=== PATIENT | female | born 1960 | race Caucasian/White ===

== ENCOUNTER → 2016-06-29 | Outpatient (REF) | payer OTHER ==
[2016-06-29 18:11] LABS: BASO % 0.7 % (0.0-1.0); EOS # 0.2 K/mm3 (0.0-0.50); EOS % 1.8 % (0.0-3.0); LARGE UNSTAINED CELL # 0.2 K/mm3 (0.0-0.4); LYMPH # 2.2 K/mm3 (1.5-4.5); LYMPH % 27.4 % (24.0-44.0); MEAN CORPUSCULAR HGB CONC 35.6 g/dl (32.0-36.5); MEAN CORPUSCULAR VOLUME 81.5 fl (80.0-96.0); MONO # 0.5 K/mm3 (0.0-0.8); MONO % 6.2 % (0.0-5.0); NEUTROPHILS % 61.9 % (36.0-66.0); PLATELET COUNT, AUTOMATED 245 k/mm3 (150-450); RED CELL DISTRIBUTION WIDTH 13.4 % (11.5-14.5); WHITE BLOOD COUNT 8.1 K/mm3 (4.0-10.0)
[2016-06-29 18:51] LABS: ALBUMIN 3.9 GM/DL (3.2-5.2); ALBUMIN/GLOBULIN RATIO 1.18 (1.00-1.93); ALKALINE PHOSPHATASE 128 U/L (45-117); ALT/SGPT 20 U/L (12-78); ANION GAP 14 MEQ/L (8-16); AST/SGOT 16 U/L (15-37); BILIRUBIN,TOTAL 0.6 MG/DL (0.2-1.0); BLOOD UREA NITROGEN 17 MG/DL (7-18); CALCIUM LEVEL 9.7 MG/DL (8.5-10.1); CARBON DIOXIDE LEVEL 22 MEQ/L (21-32); CHLORIDE LEVEL 100 MEQ/L (98-107); CREATININE FOR GFR 0.82 MG/DL (0.55-1.02); FREE T4 1.18 NG/DL (0.76-1.46); GLOMERULAR FILTRATION RATE > 60.0 (>51); GLUCOSE, FASTING 325 MG/DL (70-105); POTASSIUM SERUM 4.4 MEQ/L (3.5-5.1); SODIUM LEVEL 136 MEQ/L (136-145); TOTAL PROTEIN 7.2 GM/DL (6.4-8.2)
== END ==
LOC: M SFHCPLAZ 15:14
PROVIDERS: ATTEND Nurse Practitioner Family
DX: R53.81 Other malaise (principal); I10 Essential (primary) hypertension; E11.29 Type 2 diabetes mellitus with other diabetic kidney complication; E55.9 Vitamin D deficiency, unspecified

== ENCOUNTER → 2016-07-09 | Outpatient (CLI) | payer OTHER ==
[2016-07-09 09:35] LABS: ANION GAP 13 MEQ/L (8-16); BLOOD UREA NITROGEN 14 MG/DL (7-18); CALCIUM LEVEL 8.9 MG/DL (8.5-10.1); CARBON DIOXIDE LEVEL 22 MEQ/L (21-32); CHLORIDE LEVEL 108 MEQ/L (98-107); CHOLESTEROL LEVEL 274 MG/DL (<200); CREATININE FOR GFR 0.61 MG/DL (0.55-1.02); GLOMERULAR FILTRATION RATE > 60.0 (>51); GLUCOSE, FASTING 142 MG/DL (70-105); MAGNESIUM LEVEL 1.2 MG/DL (1.8-2.4); POTASSIUM SERUM 4.2 MEQ/L (3.5-5.1); SODIUM LEVEL 143 MEQ/L (136-145); TRIGLYCERIDES LEVEL 300 MG/DL (<150)
== END ==
LOC: M WUC 08:03
PROVIDERS: ATTEND Nurse Practitioner Family
DX: I10 Essential (primary) hypertension (principal); E78.5 Hyperlipidemia, unspecified

== ENCOUNTER 2016-07-20 06:09 | Emergency (ER) | payer OTHER ==
[2016-07-20] MEDS ORDERED: IPRATROPIUM 0.5MG/ALBUTEROL 2.5MG INH SOL UD 3ML (DUONEB)(J7620) As Ordered ONE (07:02)
[2016-07-20 07:19] LABS: BASO % 0.3 % (0.0-1.0); EOS # 0.2 K/mm3 (0.0-0.50); EOS % 1.8 % (0.0-3.0); LARGE UNSTAINED CELL # 0.2 K/mm3 (0.0-0.4); LARGE UNSTAINED CELL % 1.5 % (0.0-4.0); LYMPH # 1.4 K/mm3 (1.5-4.5); LYMPH % 12.8 % (24.0-44.0); MEAN CORPUSCULAR HEMOGLOBIN 28.3 pg (27.0-33.0); MEAN CORPUSCULAR HGB CONC 35.4 g/dl (32.0-36.5); MEAN CORPUSCULAR VOLUME 79.8 fl (80.0-96.0); MONO # 0.8 K/mm3 (0.0-0.8); MONO % 8.3 % (0.0-5.0); NEUTROPHILS # 7.6 K/mm3 (1.8-7.7); NEUTROPHILS % 75.3 % (36.0-66.0); PLATELET COUNT, AUTOMATED 314 k/mm3 (150-450); RED CELL DISTRIBUTION WIDTH 13.5 % (11.5-14.5); WHITE BLOOD COUNT 10.1 K/mm3 (4.0-10.0)
[2016-07-20 07:32] LABS: ANION GAP 8 MEQ/L (8-16); BLOOD UREA NITROGEN 13 MG/DL (7-18); CALCIUM LEVEL 8.2 MG/DL (8.5-10.1); CARBON DIOXIDE LEVEL 27 MEQ/L (21-32); CHLORIDE LEVEL 102 MEQ/L (98-107); CREATININE FOR GFR 0.58 MG/DL (0.55-1.02); GLOMERULAR FILTRATION RATE > 60.0 (>51); GLUCOSE, FASTING 286 MG/DL (70-105); POTASSIUM SERUM 4.2 MEQ/L (3.5-5.1); SODIUM LEVEL 137 MEQ/L (136-145)
--- NOTE | 2016-07-20 08:05 | REP ---
Clinical: Acute cough . Comparison: 06/10/2011 . Technique: PA and lateral. Findings: The mediastinum and cardiac silhouette are normal. The lung nicholson are clear and without acute consolidation, effusion, or pneumothorax. The skeletal structures are intact and normal. Impression: 1. No acute cardiopulmonary process. Signed by Garrick Stevenson MD 07/20/2016 07:57 A
--- NOTE | 2016-07-20 10:04 | EDDOCDS ---
Physician Documentation [facility] Name: Josh Ramachandran Age: 56 yrs Sex: Female : 1960 Arrival Date: 07/20/2016 Time: 06:09 Bed 7 Private MD: Disposition: 07/20/16 09:41 Discharged to Home/Self Care. Impression: Acute upper respiratory infection, unspecified. - Condition is Stable. - Discharge Instructions: Food Choices to Help Relieve Diarrhea, Adult, Upper Respiratory Infection, Adult, Viral Infections, Diarrhea. - Prescriptions for Afrin (oxymetazoline) 0.05 % Nasal Aerosol, [place] - spray 2 spray by INTRANASAL route 2 times per day; 1 Container. benzonatate 200 mg Oral Capsule - take 1 capsule by ORAL route 3 times per day As needed; 30 capsule. Fluticasone 50 mcg/actuation Nasal [place], Suspension - inhale 2 spray by INTRANASAL route once daily; 1 bottle. Albuterol Sulfate 90 mcg/actuation Inhalation HFA Aerosol Inhaler - inhale 2 puff by INHALATION route every 4 hours As needed; 1 Inhaler. - Medication Reconciliation, Local Pharmacy Hours, Work Release Form - 3 day form. - Follow up: Private Physician; When: 1 - 2 days. - Problem is new. - Symptoms have improved. Historical: - Allergies: Augmentin (Vomit); nyacin (Rash); - Home Meds: 1. Insulin: Lantus Sub-Q 1 sliding scale 2. Metformin Unknown Oral 2 times per day 3. Lisinopril Oral once daily 4. bisoprolol fumarate oral oral once daily 5. Lipitor Oral once daily 6. Zoloft Oral Unknown once daily 7. aspirin 81 mg Oral tab 1 tab once daily 8. Vitamin D Oral daily 9. Magnesium Oxide Oral Unknown daily 10. Flonase Nasal Unknown daily 11. Zyrtec 10 mg Oral cap Unknown daily - PMHx: Hypertension; Diabetes - IDDM: controlled; High Cholesterol; Depression; Seasonal Allergies; - PSHx: Hysterectomy; Tonsillectomy; D & C; ; - Social history: Smoking status: Patient states was never smoker of tobacco. No barriers to communication noted, The patient speaks fluent Bahamian, Speaks appropriately for age, Preferred Language: Bahamian. - Family history: Not pertinent. - : The pt / caregiver states he / she is not on anticoagulants. Home medication list is obtained from the patient. - Exposure Risk Screening:: None identified. Vital Signs: 07/20 06:15 BP 148 / 96; Pulse 83; Resp 20; Temp 98.2(TE); Pulse Ox 97% on R/A; Weight 77.11 kg / lf1 170 lbs (R); Height 5 ft. 4 in. (162.56 cm) (R); Pain 0/10; 09:07 BP 171 / 80 (auto/); Pulse 81; Resp 20; Temp 98.7(T); Pulse Ox 97% on R/A; Pain 2/10; dsf 06:15 Body Mass Index 29.18 (77.11 kg, 162.56 cm) lf1 MDM: 06:31 Strep Screen, Nursing ordered. lf1 06:32 GATS (NEGATIVE STREP SCREEN) Ordered. EDMS 06:37 -Influenza A&B Rapid Antigen - Nose Ordered. EDMS 06:52 Albuterol-Ipratropium 3 ml Inhalation once ordered. cs11 06:52 Call Respiratory ordered. cs11 06:52 NS 0.9% 1000 ml IV at bolus once ordered. cs11 06:52 Chest, 2 View (pa\E\lat) Ordered. EDMS 06:53 CBC with Diff Ordered. EDMS 06:53 MED Profile Ordered. EDMS 07:09 Call Respiratory complete. lbd 07:37 CBC with Diff Reviewed. sd1 07:37 MED Profile Reviewed. sd1 07:37 -Influenza A&B Rapid Antigen - Nose Reviewed. sd1 07:37 Fluid Challenge ordered. sd1 07:40 CLEAR LIQUID+DIET ordered. EDMS 08:32 Misc. Nursing Order ordered. sd1 08:49 Chest, 2 View (pa\E\lat) Reviewed. sd1 09:18 [facility] Payment Agreement was scanned into [employer] and attached to record. jp5 09:18 Financial registration complete. jp5 Administered Medications: 07:12 Drug: Albuterol-Ipratropium 3 ml [ipratropium-albuterol 0.5 mg-3 mg(2.5 mg base)/3 mL km6 nebulization soln (3 mL)] Route: Inhalation; 07:12 Drug: NS 0.9% 1000 ml [sodium chloride 0.9 % intravenous solution] Route: IV; Rate: ck1 bolus; Site: right forearm; 10:04 Follow up: IV Status: Completed infusion; IV Intake: 1000ml dsf Signatures: Dispatcher [employer] Akila Cruz MD MD sd1 Emerita Sanchez, Audio/Visual Operator Unit [facility] Sasha PollardRN RN ck1 Elidia GuerreroRN RN lf1 Natasha Lehman RN RN dsf Satya Storey DO DO 11 Maye Munroe RN RN nn1 Natalie Moreno jp5 Salud Junior 6 The chart was reviewed and I authenticate all verbal orders and agree with the evaluation and treatment provided.Corrections: (The following items were deleted from the chart) 06:36 06:35 Obtain sample by nasopharyngeal swab ordered. nn1 nn1 Attachments: 09:18 [facility] Payment Agreement jp5 NORBERT
--- NOTE | 2016-07-20 10:05 | EDDOCDS ---
Nurse's Notes [facility] Name: Josh Ramachandran Age: 56 yrs Sex: Female : 1960 Arrival Date: 07/20/2016 Time: 06:09 Bed 7 Private MD: Diagnosis: Acute upper respiratory infection, unspecified Presentation: 07/20 06:15 Presenting complaint: Patient states: Feeling sick since Tuesday. Nausea, diarrhea, lf1 weakness, body aches, coughing and ear pain. No flu shot this year. Decreased appetite and sore throat. Adult Sepsis Screening: The patient does not have new or worsening altered mentation. Patient's respiratory rate is less than 22. Systolic blood pressure is greater than 100. Patient has a qSOFA score of 0- Negative Sepsis Screen. Suicide/Homicide risk assessment- the patient denies having any suicidal and/or homicidal ideations and does not present with any other emotional, behavioral or mental health complaints. Status: Patient is not a field services analyst or dependent. Transition of care: patient was not received from another setting of care. 06:15 Acuity: APOLLO Level 4 lf1 06:15 Method Of Arrival: Walkin/Carried/Asstd lf1 07:30 Acuity level changed due to complexity of care. ck1 07:30 Acuity: APOLLO Level 3 ck1 Triage Assessment: 06:28 General: Appears ill, Behavior is cooperative. Pain: Denies pain. HIV screening NA for lf1 this visit Offered previously. Neurological: Level of Consciousness is awake, alert. EENT: Reports nasal congestion. Respiratory: Respiratory effort is even, unlabored, Respiratory pattern is regular, Reports shortness of breath cough that is persistent. GI: Reports nausea. Derm: Skin is intact, Pt reports recently treated for Shingles and still has a small rash to right abdomen. Historical: - Allergies: Augmentin (Vomit); nyacin (Rash); - Home Meds: 1. Insulin: Lantus Sub-Q 1 sliding scale 2. Metformin Unknown Oral 2 times per day 3. Lisinopril Oral once daily 4. bisoprolol fumarate oral oral once daily 5. Lipitor Oral once daily 6. Zoloft Oral Unknown once daily 7. aspirin 81 mg Oral tab 1 tab once daily 8. Vitamin D Oral daily 9. Magnesium Oxide Oral Unknown daily 10. Flonase Nasal Unknown daily 11. Zyrtec 10 mg Oral cap Unknown daily - PMHx: Hypertension; Diabetes - IDDM: controlled; High Cholesterol; Depression; Seasonal Allergies; - PSHx: Hysterectomy; Tonsillectomy; D & C; ; - Social history: Smoking status: Patient states was never smoker of tobacco. No barriers to communication noted, The patient speaks fluent [place], Speaks appropriately for age, Preferred Language: [place]. - Family history: Not pertinent. - : The pt / caregiver states he / she is not on anticoagulants. Home medication list is obtained from the patient. - Exposure Risk Screening:: None identified. Screenin:15 Screening information is obtained from the patient. Fall risk: No risks identified. ck1 Assistance ADL's: requires no assistance with activities of daily living. Abuse/DV Screen: The patient / caregiver reports he/she is: not in a situation that causes fear, pain or injury. Nutritional screening: No deficits noted. Advance Directives: Currently, there is no health care proxy. home support is adequate. Assessment: 06:48 General: Appears in no apparent distress, Behavior is appropriate for age, cooperative. nn1 General: Patient reports possible shingles to right abdomen, reports pain to the area. States she is currently on medication for this by PCP.. Pain: Location: right upper quadrant and right lower quadrant. Neurological: Level of Consciousness is awake, alert, obeys commands. Respiratory: Airway is patent Respiratory effort is even, unlabored, Respiratory pattern is regular, Breath sounds with wheezes expiratory Reports cough that is productive, since TUESDAY producing thick white mucus. GI: Abdomen is non- distended Bowel sounds present X 4 quads. Abd is soft X 4 quads Abd is tender to palpation in right upper quadrant and right lower quadrant Reports diarrhea, nausea, Decreased appetite. Derm: Skin is pink, warm & dry. Rash to right abdomen. 07:15 General: Appears in no apparent distress, comfortable, Behavior is appropriate for age, ck1 cooperative. Pain: Location: right lower quadrant Pain currently is 2 out of 10 on a pain scale. Pain radiates to right flank. GI: Reports nausea. Derm: Skin is pink, warm & dry. Musculoskeletal: Circulation, motion, and sensation intact Range of motion intact in all extremities. 08:15 Reassessment: Patient appears in no apparent distress at this time. ck1 08:51 General: Patient ambulated in hallway approximately 50 feet. denies feeling dizzy, ck1 denies SOB. C/O feeling weak. No acute distress noted, assisted back to room, positioned self for comfort. Call light in reach, will continue to monitor patient. 09:11 General: Appears in no apparent distress, Behavior is appropriate for age. Pain: dsf Location: right flank and right lower quadrant and right upper quadrant Pain currently is 2 out of 10 on a pain scale. Quality of pain is described as burning. Neurological: Level of Consciousness is awake, alert. Cardiovascular: Capillary refill < 3 seconds. Respiratory: Airway is patent Respiratory effort is even, unlabored, Respiratory pattern is regular, symmetrical. Derm: Skin is pink, warm & dry. 09:54 General: Appears in no apparent distress, comfortable, Behavior is appropriate for age, dsf cooperative. Neurological: Level of Consciousness is awake, alert. Cardiovascular: Capillary refill < 3 seconds. Respiratory: Airway is patent Respiratory effort is even, unlabored, Respiratory pattern is regular, symmetrical. Derm: Skin is pink, warm & dry. Vital Signs: 06:15 BP 148 / 96; Pulse 83; Resp 20; Temp 98.2(TE); Pulse Ox 97% on R/A; Weight 77.11 kg lf1 (R); Height 5 ft. 4 in. (162.56 cm) (R); Pain 0/10; 09:07 BP 171 / 80 (auto/); Pulse 81; Resp 20; Temp 98.7(T); Pulse Ox 97% on R/A; Pain 2/10; dsf 06:15 Body Mass Index 29.18 (77.11 kg, 162.56 cm) [facility] Vitals: 06:15 Log In Time: July 20, 2016 at 06:11. lf1 06:31 Strep Screen is obtained and tested: Negative, a GATSNEG [facility] and sent. ED Course: 06:10 Patient visited by Thalia Bradshaw Reg. hs2 06:10 Patient moved to Waiting hs2 06:22 Triage Initiated lf1 06:31 Patient moved to 7 lf1 06:45 Satya Storey DO is Attending Physician. cs11 06:45 Patient visited by Satya Storey DO. cs11 06:56 Attending Physician role handed off by Satya Storey DO sd1 06:56 Akila Newell MD is Attending Physician. sd1 07:11 Patient visited by Sasha Pollard RN. ck1 07:12 MED Profile Sent. ck1 07:12 CBC with Diff Sent. ck1 07:15 Sasha Pollard RN is Primary Nurse. ck1 07:15 The patient / caregiver is instructed regarding the plan of care and ED course. ck1 07:15 Inserted saline lock: 20 gauge in right forearm and blood collected. The patient ck1 tolerated the procedure well. 07:43 Patient visited by Sasha Pollard RN. ck1 07:57 Patient visited by Sasha Pollard RN. ck1 07:57 PO fluids given. ck1 08:16 Chest, 2 View (pa\E\lat) Returned. EDMS 08:35 Patient visited by Sasha Pollard RN. ck1 08:51 Sasha Pollard RN is Primary Nurse. ck1 08:51 Patient visited by Sasha Pollard RN. ck1 09:12 Patient visited by Natasha Lehman,ALE. dsf 09:18 [facility] Payment Agreement was scanned into [employer] and attached to record. jp5 09:54 Discontinued lock intact, bleeding controlled, pressure dressing applied, No dsf redness/swelling at site. No procedures done that require assistance. Administered Medications: 07:12 Drug: Albuterol-Ipratropium 3 ml [ipratropium-albuterol 0.5 mg-3 mg(2.5 mg base)/3 mL km nebulization soln (3 mL)] Route: Inhalation; 07:12 Drug: NS 0.9% 1000 ml [sodium chloride 0.9 % intravenous solution] Route: IV; Rate: ck1 bolus; Site: right forearm; 10:04 Follow up: IV Status: Completed infusion; IV Intake: 1000ml dsf Intake: 10:04 IV: 1000.00ml; Total: 1000.00ml. dsf RT: 07:13 Initial Med Neb Given as ordered Patient was instructed and evaluated on procedure km6 Patient tolerated procedure well without adverse effect. Respiratory: Breath sounds with wheezes at expiration. Order Results: Lab Order: -Influenza A&B Rapid Antigen - Nose; SPEC'M 07/20/16 06:38 Test: INFLUENZA A RAPID SCR by ICA; Value: INFLUENZA A RESULTS NEGATIVE; Status: F Test: INFLUENZA A RAPID SCR by ICA; Value: Comments:; Status: F Test: INFLUENZA B RAPID SCR by ICA; Value: INFLUENZA B RESULTS NEGATIVE; Status: F Test Note: ; The Influenza test is a direct rapid immunoassay for the qualitative detection of Influenza viral antigen. Cell culture (Viral Culture) testing should be considered to confirm NEGATIVE results and to assist in detecting other viruses that can provide similar clinical symptoms. Please contact the lab within 24 hours ([phone]) if confirmatory testing is desired. Lab Order: CBC with Diff; SPEC'M 07/20/16 07:10 Test: WHITE BLOOD COUNT; Value: 10.1; Range: 4.0-10.0; Abnormal: Above high normal; Units: K/mm3; Status: F Test: RED BLOOD COUNT; Value: 4.65; Range: 4.00-5.40; Units: M/mm3; Status: F Test: HEMOGLOBIN; Value: 13.1; Range: 12.0-16.0; Units: g/dl; Status: F Test: HEMATOCRIT; Value: 37.1; Range: 36.0-47.0; Units: %; Status: F Test: MEAN CORPUSCULAR VOLUME; Value: 79.8; Range: 80.0-96.0; Abnormal: Below low normal; Units: fl; Status: F Test: MEAN CORPUSCULAR HEMOGLOBIN; Value: 28.3; Range: 27.0-33.0; Units: pg; Status: F Test: MEAN CORPUSCULAR HGB CONC; Value: 35.4; Range: 32.0-36.5; Units: g/dl; Status: F Test: RED CELL DISTRIBUTION WIDTH; Value: 13.5; Range: 11.5-14.5; Units: %; Status: F Test: PLATELET COUNT, AUTOMATED; Value: 314; Range: 150-450; Units: k/mm3; Status: F Test: NEUTROPHILS %; Value: 75.3; Range: 36.0-66.0; Abnormal: Above high normal; Units: %; Status: F Test: LYMPH %; Value: 12.8; Range: 24.0-44.0; Abnormal: Below low normal; Units: %; Status: F Test: MONO %; Value: 8.3; Range: 0.0-5.0; Abnormal: Above high normal; Units: %; Status: F Test: EOS %; Value: 1.8; Range: 0.0-3.0; Units: %; Status: F Test: BASO %; Value: 0.3; Range: 0.0-1.0; Units: %; Status: F Test: LARGE UNSTAINED CELL %; Value: 1.5; Range: 0.0-4.0; Units: %; Status: F Test: NEUTROPHILS #; Value: 7.6; Range: 1.8-7.7; Units: K/mm3; Status: F Test: LYMPH #; Value: 1.4; Range: 1.5-4.5; Abnormal: Below low normal; Units: K/mm3; Status: F Test: MONO #; Value: 0.8; Range: 0.0-0.8; Units: K/mm3; Status: F Test: EOS #; Value: 0.2; Range: 0.0-0.50; Units: K/mm3; Status: F Test: BASO #; Value: 0.0; Range: 0.0-0.2; Units: K/mm3; Status: F Test: LARGE UNSTAINED CELL #; Value: 0.2; Range: 0.0-0.4; Units: K/mm3; Status: F Lab Order: [facility] Profile; [facility]' 07/20/16 07:10 Test: GLUCOSE, FASTING; Value: 286; Range: 70-105; Abnormal: Above high normal; Units: MG/DL; Status: F Test: BLOOD UREA NITROGEN; Value: 13; Range: 7-18; Units: MG/DL; Status: F Test: CREATININE FOR GFR; Value: 0.58; Range: 0.55-1.02; Units: MG/DL; Status: F Test: GLOMERULAR FILTRATION RATE; Value: > 60.0; Range: >51; Status: F Test: SODIUM LEVEL; Value: 137; Range: 136-145; Units: MEQ/L; Status: F Test: POTASSIUM SERUM; Value: 4.2; Range: 3.5-5.1; Units: MEQ/L; Status: F Test: CHLORIDE LEVEL; Value: 102; Range: 98-107; Units: MEQ/L; Status: F Test: CARBON DIOXIDE LEVEL; Value: 27; Range: 21-32; Units: MEQ/L; Status: F Test: ANION GAP; Value: 8; Range: 8-16; Units: MEQ/L; Status: F Test: CALCIUM LEVEL; Value: 8.2; Range: 8.5-10.1; Abnormal: Below low normal; Units: MG/DL; Status: F Test Note: ; Units are mL/min/1.73 m2 Chronic Kidney Disease Staging per NKF: Stage I & II GFR >=60 Normal to Mildly Decreased Stage III GFR 30-59 Moderately Decreased Stage IV GFR 15-29 Severely Decreased Stage V GFR <15 Very Little GFR Left ESRD GFR <15 on [facility]IP [facility] Radiology Order: Chest, 2 View (pa\E\lat) Test: Chest, 2 View (pa\E\lat) REASON FOR EXAMINATION: Cough; Clinical: Acute cough .; ; Comparison: 06/10/2011 .; ; Technique: PA and lateral.; ; Findings:; The mediastinum and cardiac silhouette are normal. The lung nicholson are clear and; without acute consolidation, effusion, or pneumothorax. The skeletal structures; are intact and normal.; ; Impression:; 1. No acute cardiopulmonary process.; ; ; Signed by; Garrick Stevenson MD 07/20/2016 07:57 A; Outcome: 09:41 Discharge ordered by Provider. sd1 09:54 Discharge Assessment: Patient awake, alert and oriented x 3. No cognitive and/or dsf functional deficits noted. Patient verbalized understanding of disposition instructions. patient administered narcotics - no. The following High Risk Discharge criteria are identified: None. Discharged to home ambulatory. Condition: improved. Discharge instructions given to patient, Instructed on discharge instructions, follow up and referral plans. medication usage, Demonstrated understanding of instructions, medications, Pt was receptive of discharge instructions/ teaching. Prescriptions given X 4, Work note provided to patient. No special radiology studies were completed. Property sent home with patient. 10:03 Patient left the ED. dsf Signatures: Dispatcher [facility] EDSD Akila Newell MD MD sd1 Salud Junior 6 Sasha PollardRN RN ck1 Elidia Guerrero,RN RN lf1 Natasha LehmanRN RN dsf Satya Storey, DO ALEXANDRA cs11 Maye MunroeRN RN nn1 Natalie Moreno jp5 Thalia Bradshaw, Reg Reg hs2 Corrections: (The following items were deleted from the chart) 09:56 09:07 BP 171 / 80 Auto; Pulse 81bpm; Resp 20bpm; Pulse Ox 97% RA; Pain 2/10; dsf dsf MTDD
--- NOTE | 2016-07-22 11:05 | EDDOCDS ---
Physician Documentation [facility] Name: Josh Ramachandran Age: 56 yrs Sex: Female : 1960 Arrival Date: 07/20/2016 Time: 06:09 Bed 7 Private MD: Disposition: 07/20/16 09:41 Discharged to Home/Self Care. Impression: Acute upper respiratory infection, unspecified. - Condition is Stable. - Discharge Instructions: Food Choices to Help Relieve Diarrhea, Adult, Upper Respiratory Infection, Adult, Viral Infections, Diarrhea. - Prescriptions for Afrin (oxymetazoline) 0.05 % Nasal Aerosol, [place] - spray 2 spray by INTRANASAL route 2 times per day; 1 Container. benzonatate 200 mg Oral Capsule - take 1 capsule by ORAL route 3 times per day As needed; 30 capsule. Fluticasone 50 mcg/actuation Nasal [place], Suspension - inhale 2 spray by INTRANASAL route once daily; 1 bottle. Albuterol Sulfate 90 mcg/actuation Inhalation HFA Aerosol Inhaler - inhale 2 puff by INHALATION route every 4 hours As needed; 1 Inhaler. - Medication Reconciliation, Local Pharmacy Hours, Work Release Form - 3 day form. - Follow up: Private Physician; When: 1 - 2 days. - Problem is new. - Symptoms have improved. Historical: - Allergies: Augmentin (Vomit); nyacin (Rash); - Home Meds: 1. Insulin: Lantus Sub-Q 1 sliding scale 2. Metformin Unknown Oral 2 times per day 3. Lisinopril Oral once daily 4. bisoprolol fumarate oral oral once daily 5. Lipitor Oral once daily 6. Zoloft Oral Unknown once daily 7. aspirin 81 mg Oral tab 1 tab once daily 8. Vitamin D Oral daily 9. Magnesium Oxide Oral Unknown daily 10. Flonase Nasal Unknown daily 11. Zyrtec 10 mg Oral cap Unknown daily - PMHx: Hypertension; Diabetes - IDDM: controlled; High Cholesterol; Depression; Seasonal Allergies; - PSHx: Hysterectomy; Tonsillectomy; D & C; ; - Social history: Smoking status: Patient states was never smoker of tobacco. No barriers to communication noted, The patient speaks fluent Lithuanian, Speaks appropriately for age, Preferred Language: Lithuanian. - Family history: Not pertinent. - : The pt / caregiver states he / she is not on anticoagulants. Home medication list is obtained from the patient. - Exposure Risk Screening:: None identified. Vital Signs: 07/20 06:15 BP 148 / 96; Pulse 83; Resp 20; Temp 98.2(TE); Pulse Ox 97% on R/A; Weight 77.11 kg / lf1 170 lbs (R); Height 5 ft. 4 in. (162.56 cm) (R); Pain 0/10; 09:07 BP 171 / 80 (auto/); Pulse 81; Resp 20; Temp 98.7(T); Pulse Ox 97% on R/A; Pain 2/10; dsf 06:15 Body Mass Index 29.18 (77.11 kg, 162.56 cm) lf1 MDM: 06:31 Strep Screen, Nursing ordered. lf1 06:32 GATS (NEGATIVE STREP SCREEN) Ordered. EDMS 06:37 -Influenza A&B Rapid Antigen - Nose Ordered. EDMS 06:52 Albuterol-Ipratropium 3 ml Inhalation once ordered. cs11 06:52 Call Respiratory ordered. cs11 06:52 NS 0.9% 1000 ml IV at bolus once ordered. cs11 06:52 Chest, 2 View (pa\E\lat) Ordered. EDMS 06:53 CBC with Diff Ordered. EDMS 06:53 MED Profile Ordered. EDMS 07:09 Call Respiratory complete. lbd 07:37 CBC with Diff Reviewed. sd1 07:37 MED Profile Reviewed. sd1 07:37 -Influenza A&B Rapid Antigen - Nose Reviewed. sd1 07:37 Fluid Challenge ordered. sd1 07:40 CLEAR LIQUID+DIET ordered. EDMS 08:32 Misc. Nursing Order ordered. sd1 08:49 Chest, 2 View (pa\E\lat) Reviewed. sd1 09:18 [facility] Payment Agreement was scanned into [employer] and attached to record. jp5 09:18 Financial registration complete. jp5 15:26 T-Sheet-- Draft Copy was scanned into [employer] and attached to record. gb Administered Medications: 07:12 Drug: Albuterol-Ipratropium 3 ml [ipratropium-albuterol 0.5 mg-3 mg(2.5 mg base)/3 mL km6 nebulization soln (3 mL)] Route: Inhalation; 07:12 Drug: NS 0.9% 1000 ml [sodium chloride 0.9 % intravenous solution] Route: IV; Rate: ck1 bolus; Site: right forearm; 10:04 Follow up: IV Status: Completed infusion; IV Intake: 1000ml dsf Signatures: Dispatcher [employer] Akila Cruz MD MD sd1 Emerita Sanchez, Flat Lock Machine Operator Unit lbd Lauren Pack, Reg Reg gb Sasha PollardRN RN ck1 Elidia Guerrero RN RN lf1 Natasha LehmanRN RN dsf Satya Storey DO DO cs11 Maye MunroeRN RN nn1 Natalie Moreno jp5 Salud Junior km6 The chart was reviewed and I authenticate all verbal orders and agree with the evaluation and treatment provided.Corrections: (The following items were deleted from the chart) 06:36 06:35 Obtain sample by nasopharyngeal swab ordered. nn1 nn1 Attachments: 09:18 [facility] Payment Agreement jp5 15:26 T-Sheet-- Draft Copy Chart Complete [facility]
--- NOTE | 2016-07-22 11:05 | EDDOCDS ---
Physician Documentation [facility] Name: Josh Ramachandran Age: 56 yrs Sex: Female : 1960 Arrival Date: 07/20/2016 Time: 06:09 Bed 7 Private MD: Disposition: 07/20/16 09:41 Discharged to Home/Self Care. Impression: Acute upper respiratory infection, unspecified. - Condition is Stable. - Discharge Instructions: Food Choices to Help Relieve Diarrhea, Adult, Upper Respiratory Infection, Adult, Viral Infections, Diarrhea. - Prescriptions for Afrin (oxymetazoline) 0.05 % Nasal Aerosol, [place] - spray 2 spray by INTRANASAL route 2 times per day; 1 Container. benzonatate 200 mg Oral Capsule - take 1 capsule by ORAL route 3 times per day As needed; 30 capsule. Fluticasone 50 mcg/actuation Nasal [place], Suspension - inhale 2 spray by INTRANASAL route once daily; 1 bottle. Albuterol Sulfate 90 mcg/actuation Inhalation HFA Aerosol Inhaler - inhale 2 puff by INHALATION route every 4 hours As needed; 1 Inhaler. - Medication Reconciliation, Local Pharmacy Hours, Work Release Form - 3 day form. - Follow up: Private Physician; When: 1 - 2 days. - Problem is new. - Symptoms have improved. Historical: - Allergies: Augmentin (Vomit); nyacin (Rash); - Home Meds: 1. Insulin: Lantus Sub-Q 1 sliding scale 2. Metformin Unknown Oral 2 times per day 3. Lisinopril Oral once daily 4. bisoprolol fumarate oral oral once daily 5. Lipitor Oral once daily 6. Zoloft Oral Unknown once daily 7. aspirin 81 mg Oral tab 1 tab once daily 8. Vitamin D Oral daily 9. Magnesium Oxide Oral Unknown daily 10. Flonase Nasal Unknown daily 11. Zyrtec 10 mg Oral cap Unknown daily - PMHx: Hypertension; Diabetes - IDDM: controlled; High Cholesterol; Depression; Seasonal Allergies; - PSHx: Hysterectomy; Tonsillectomy; D & C; ; - Social history: Smoking status: Patient states was never smoker of tobacco. No barriers to communication noted, The patient speaks fluent Italian, Speaks appropriately for age, Preferred Language: Italian. - Family history: Not pertinent. - : The pt / caregiver states he / she is not on anticoagulants. Home medication list is obtained from the patient. - Exposure Risk Screening:: None identified. Vital Signs: 07/20 06:15 BP 148 / 96; Pulse 83; Resp 20; Temp 98.2(TE); Pulse Ox 97% on R/A; Weight 77.11 kg / lf1 170 lbs (R); Height 5 ft. 4 in. (162.56 cm) (R); Pain 0/10; 09:07 BP 171 / 80 (auto/); Pulse 81; Resp 20; Temp 98.7(T); Pulse Ox 97% on R/A; Pain 2/10; dsf 06:15 Body Mass Index 29.18 (77.11 kg, 162.56 cm) lf1 MDM: 06:31 Strep Screen, Nursing ordered. lf1 06:32 GATS (NEGATIVE STREP SCREEN) Ordered. EDMS 06:37 -Influenza A&B Rapid Antigen - Nose Ordered. EDMS 06:52 Albuterol-Ipratropium 3 ml Inhalation once ordered. cs11 06:52 Call Respiratory ordered. cs11 06:52 NS 0.9% 1000 ml IV at bolus once ordered. cs11 06:52 Chest, 2 View (pa\E\lat) Ordered. EDMS 06:53 CBC with Diff Ordered. EDMS 06:53 MED Profile Ordered. EDMS 07:09 Call Respiratory complete. lbd 07:37 CBC with Diff Reviewed. sd1 07:37 MED Profile Reviewed. sd1 07:37 -Influenza A&B Rapid Antigen - Nose Reviewed. sd1 07:37 Fluid Challenge ordered. sd1 07:40 CLEAR LIQUID+DIET ordered. EDMS 08:32 Misc. Nursing Order ordered. sd1 08:49 Chest, 2 View (pa\E\lat) Reviewed. sd1 09:18 [facility] Payment Agreement was scanned into [employer] and attached to record. jp5 09:18 Financial registration complete. jp5 15:26 T-Sheet-- Draft Copy was scanned into [employer] and attached to record. gb Administered Medications: 07:12 Drug: Albuterol-Ipratropium 3 ml [ipratropium-albuterol 0.5 mg-3 mg(2.5 mg base)/3 mL km6 nebulization soln (3 mL)] Route: Inhalation; 07:12 Drug: NS 0.9% 1000 ml [sodium chloride 0.9 % intravenous solution] Route: IV; Rate: ck1 bolus; Site: right forearm; 10:04 Follow up: IV Status: Completed infusion; IV Intake: 1000ml dsf Signatures: Dispatcher [employer] Akila Cruz MD MD sd1 Emerita Sanchez, Head Of Music Unit lbd Lauren Pack, Reg Reg gb Sasha PollardRN RN ck1 Elidia Guerrero RN RN lf1 Natasha LehmanRN RN dsf Satya Storey DO DO cs11 Maye MunroeRN RN nn1 Natalie Moreno jp5 Salud Junior km6 The chart was reviewed and I authenticate all verbal orders and agree with the evaluation and treatment provided.Corrections: (The following items were deleted from the chart) 06:36 06:35 Obtain sample by nasopharyngeal swab ordered. nn1 nn1 Attachments: 09:18 [facility] Payment Agreement jp5 15:26 T-Sheet-- Draft Copy Chart Complete [facility]
--- NOTE | 2016-07-22 11:05 | EDDOCDS ---
Nurse's Notes [facility] Name: Josh Ramachandran Age: 56 yrs Sex: Female : 1960 Arrival Date: 07/20/2016 Time: 06:09 Bed 7 Private MD: Diagnosis: Acute upper respiratory infection, unspecified Presentation: 07/20 06:15 Presenting complaint: Patient states: Feeling sick since Tuesday. Nausea, diarrhea, lf1 weakness, body aches, coughing and ear pain. No flu shot this year. Decreased appetite and sore throat. Adult Sepsis Screening: The patient does not have new or worsening altered mentation. Patient's respiratory rate is less than 22. Systolic blood pressure is greater than 100. Patient has a qSOFA score of 0- Negative Sepsis Screen. Suicide/Homicide risk assessment- the patient denies having any suicidal and/or homicidal ideations and does not present with any other emotional, behavioral or mental health complaints. Status: Patient is not a senior customer service representative or dependent. Transition of care: patient was not received from another setting of care. 06:15 Acuity: APOLLO Level 4 lf1 06:15 Method Of Arrival: Walkin/Carried/Asstd lf1 07:30 Acuity level changed due to complexity of care. ck1 07:30 Acuity: APOLLO Level 3 ck1 Triage Assessment: 06:28 General: Appears ill, Behavior is cooperative. Pain: Denies pain. HIV screening NA for lf1 this visit Offered previously. Neurological: Level of Consciousness is awake, alert. EENT: Reports nasal congestion. Respiratory: Respiratory effort is even, unlabored, Respiratory pattern is regular, Reports shortness of breath cough that is persistent. GI: Reports nausea. Derm: Skin is intact, Pt reports recently treated for Shingles and still has a small rash to right abdomen. Historical: - Allergies: Augmentin (Vomit); nyacin (Rash); - Home Meds: 1. Insulin: Lantus Sub-Q 1 sliding scale 2. Metformin Unknown Oral 2 times per day 3. Lisinopril Oral once daily 4. bisoprolol fumarate oral oral once daily 5. Lipitor Oral once daily 6. Zoloft Oral Unknown once daily 7. aspirin 81 mg Oral tab 1 tab once daily 8. Vitamin D Oral daily 9. Magnesium Oxide Oral Unknown daily 10. Flonase Nasal Unknown daily 11. Zyrtec 10 mg Oral cap Unknown daily - PMHx: Hypertension; Diabetes - IDDM: controlled; High Cholesterol; Depression; Seasonal Allergies; - PSHx: Hysterectomy; Tonsillectomy; D & C; ; - Social history: Smoking status: Patient states was never smoker of tobacco. No barriers to communication noted, The patient speaks fluent Swiss, Speaks appropriately for age, Preferred Language: Swiss. - Family history: Not pertinent. - : The pt / caregiver states he / she is not on anticoagulants. Home medication list is obtained from the patient. - Exposure Risk Screening:: None identified. Screenin:15 Screening information is obtained from the patient. Fall risk: No risks identified. ck1 Assistance ADL's: requires no assistance with activities of daily living. Abuse/DV Screen: The patient / caregiver reports he/she is: not in a situation that causes fear, pain or injury. Nutritional screening: No deficits noted. Advance Directives: Currently, there is no health care proxy. home support is adequate. Assessment: 06:48 General: Appears in no apparent distress, Behavior is appropriate for age, cooperative. nn1 General: Patient reports possible shingles to right abdomen, reports pain to the area. States she is currently on medication for this by PCP.. Pain: Location: right upper quadrant and right lower quadrant. Neurological: Level of Consciousness is awake, alert, obeys commands. Respiratory: Airway is patent Respiratory effort is even, unlabored, Respiratory pattern is regular, Breath sounds with wheezes expiratory Reports cough that is productive, since TUESDAY producing thick white mucus. GI: Abdomen is non- distended Bowel sounds present X 4 quads. Abd is soft X 4 quads Abd is tender to palpation in right upper quadrant and right lower quadrant Reports diarrhea, nausea, Decreased appetite. Derm: Skin is pink, warm & dry. Rash to right abdomen. 07:15 General: Appears in no apparent distress, comfortable, Behavior is appropriate for age, ck1 cooperative. Pain: Location: right lower quadrant Pain currently is 2 out of 10 on a pain scale. Pain radiates to right flank. GI: Reports nausea. Derm: Skin is pink, warm & dry. Musculoskeletal: Circulation, motion, and sensation intact Range of motion intact in all extremities. 08:15 Reassessment: Patient appears in no apparent distress at this time. ck1 08:51 General: Patient ambulated in hallway approximately 50 feet. denies feeling dizzy, ck1 denies SOB. C/O feeling weak. No acute distress noted, assisted back to room, positioned self for comfort. Call light in reach, will continue to monitor patient. 09:11 General: Appears in no apparent distress, Behavior is appropriate for age. Pain: dsf Location: right flank and right lower quadrant and right upper quadrant Pain currently is 2 out of 10 on a pain scale. Quality of pain is described as burning. Neurological: Level of Consciousness is awake, alert. Cardiovascular: Capillary refill < 3 seconds. Respiratory: Airway is patent Respiratory effort is even, unlabored, Respiratory pattern is regular, symmetrical. Derm: Skin is pink, warm & dry. 09:54 General: Appears in no apparent distress, comfortable, Behavior is appropriate for age, dsf cooperative. Neurological: Level of Consciousness is awake, alert. Cardiovascular: Capillary refill < 3 seconds. Respiratory: Airway is patent Respiratory effort is even, unlabored, Respiratory pattern is regular, symmetrical. Derm: Skin is pink, warm & dry. Vital Signs: 06:15 BP 148 / 96; Pulse 83; Resp 20; Temp 98.2(TE); Pulse Ox 97% on R/A; Weight 77.11 kg lf1 (R); Height 5 ft. 4 in. (162.56 cm) (R); Pain 0/10; 09:07 BP 171 / 80 (auto/); Pulse 81; Resp 20; Temp 98.7(T); Pulse Ox 97% on R/A; Pain 2/10; dsf 06:15 Body Mass Index 29.18 (77.11 kg, 162.56 cm) [facility] Vitals: 06:15 Log In Time: July 20, 2016 at 06:11. lf1 06:31 Strep Screen is obtained and tested: Negative, a GATSNEG culture is ordered in [facility] and sent. ED Course: 06:10 Patient visited by Thalia Bradshaw Reg. hs2 06:10 Patient moved to Waiting hs2 06:22 Triage Initiated lf1 06:31 Patient moved to 7 lf1 06:45 Satya Storey DO is Attending Physician. cs11 06:45 Patient visited by Satya Storey DO. cs11 06:56 Attending Physician role handed off by Satya Storey DO sd1 06:56 Akila Newell MD is Attending Physician. sd1 07:11 Patient visited by Sasha Pollard RN. ck1 07:12 MED Profile Sent. ck1 07:12 CBC with Diff Sent. ck1 07:15 Sasha Pollard,ALE is Primary Nurse. ck1 07:15 The patient / caregiver is instructed regarding the plan of care and ED course. ck1 07:15 Inserted saline lock: 20 gauge in right forearm and blood collected. The patient ck1 tolerated the procedure well. 07:43 Patient visited by Sasha Pollard RN. ck1 07:57 Patient visited by Sasha Pollard RN. ck1 07:57 PO fluids given. ck1 08:16 Chest, 2 View (pa\E\lat) Returned. EDMS 08:35 Patient visited by Sasha Pollard RN. ck1 08:51 Sasha Pollard RN is Primary Nurse. ck1 08:51 Patient visited by Sasha Pollard RN. ck1 09:12 Patient visited by Natasha Lehman,ALE. dsf 09:18 [facility] Payment Agreement was scanned into [email or web address] and attached to record. jp5 09:54 Discontinued lock intact, bleeding controlled, pressure dressing applied, No dsf redness/swelling at site. No procedures done that require assistance. 15:26 T-Sheet-- Draft Copy was scanned into [email or web address] and attached to record. gb Administered Medications: 07:12 Drug: Albuterol-Ipratropium 3 ml [ipratropium-albuterol 0.5 mg-3 mg(2.5 mg base)/3 mL km6 nebulization soln (3 mL)] Route: Inhalation; 07:12 Drug: NS 0.9% 1000 ml [sodium chloride 0.9 % intravenous solution] Route: IV; Rate: ck1 bolus; Site: right forearm; 10:04 Follow up: IV Status: Completed infusion; IV Intake: 1000ml dsf Intake: 10:04 IV: 1000.00ml; Total: 1000.00ml. dsf RT: 07:13 Initial Med Neb Given as ordered Patient was instructed and evaluated on procedure km6 Patient tolerated procedure well without adverse effect. Respiratory: Breath sounds with wheezes at expiration. Order Results: Lab Order: GATS (NEGATIVE STREP SCREEN); SPEC'M 07/20/16 06:38 Test: GATS CULTURE (NEG STREP SCR); Value: GATS RESULT NEGATIVE FOR STREP PYOGENES (GROUP A); Status: F Test: GATS CULTURE (NEG STREP SCR); Value: <EXTERNAL COMMENT eCWMed> FULL REPORT IN LAB NOTES (eCW and Medent).; Status: F Lab Order: -Influenza A&B Rapid Antigen - Nose; SPEC'M 07/20/16 06:38 Test: INFLUENZA A RAPID SCR by ICA; Value: INFLUENZA A RESULTS NEGATIVE; Status: F Test: INFLUENZA A RAPID SCR by ICA; Value: Comments:; Status: F Test: INFLUENZA B RAPID SCR by ICA; Value: INFLUENZA B RESULTS NEGATIVE; Status: F Test Note: ; The Influenza test is a direct rapid immunoassay for the qualitative detection of Influenza viral antigen. Cell culture (Viral Culture) testing should be considered to confirm NEGATIVE results and to assist in detecting other viruses that can provide similar clinical symptoms. Please contact the lab within 24 hours ([phone]) if confirmatory testing is desired. Lab Order: CBC with Diff; SPEC'M 07/20/16 07:10 Test: WHITE BLOOD COUNT; Value: 10.1; Range: 4.0-10.0; Abnormal: Above high normal; Units: K/mm3; Status: F Test: RED BLOOD COUNT; Value: 4.65; Range: 4.00-5.40; Units: M/mm3; Status: F Test: HEMOGLOBIN; Value: 13.1; Range: 12.0-16.0; Units: g/dl; Status: F Test: HEMATOCRIT; Value: 37.1; Range: 36.0-47.0; Units: %; Status: F Test: MEAN CORPUSCULAR VOLUME; Value: 79.8; Range: 80.0-96.0; Abnormal: Below low normal; Units: fl; Status: F Test: MEAN CORPUSCULAR HEMOGLOBIN; Value: 28.3; Range: 27.0-33.0; Units: pg; Status: F Test: MEAN CORPUSCULAR HGB CONC; Value: 35.4; Range: 32.0-36.5; Units: g/dl; Status: F Test: RED CELL DISTRIBUTION WIDTH; Value: 13.5; Range: 11.5-14.5; Units: %; Status: F Test: PLATELET COUNT, AUTOMATED; Value: 314; Range: 150-450; Units: k/mm3; Status: F Test: NEUTROPHILS %; Value: 75.3; Range: 36.0-66.0; Abnormal: Above high normal; Units: %; Status: F Test: LYMPH %; Value: 12.8; Range: 24.0-44.0; Abnormal: Below low normal; Units: %; Status: F Test: MONO %; Value: 8.3; Range: 0.0-5.0; Abnormal: Above high normal; Units: %; Status: F Test: EOS %; Value: 1.8; Range: 0.0-3.0; Units: %; Status: F Test: BASO %; Value: 0.3; Range: 0.0-1.0; Units: %; Status: F Test: LARGE UNSTAINED CELL %; Value: 1.5; Range: 0.0-4.0; Units: %; Status: F Test: NEUTROPHILS #; Value: 7.6; Range: 1.8-7.7; Units: K/mm3; Status: F Test: LYMPH #; Value: 1.4; Range: 1.5-4.5; Abnormal: Below low normal; Units: K/mm3; Status: F Test: MONO #; Value: 0.8; Range: 0.0-0.8; Units: K/mm3; Status: F Test: EOS #; Value: 0.2; Range: 0.0-0.50; Units: K/mm3; Status: F Test: BASO #; Value: 0.0; Range: 0.0-0.2; Units: K/mm3; Status: F Test: LARGE UNSTAINED CELL #; Value: 0.2; Range: 0.0-0.4; Units: K/mm3; Status: F Lab Order: MED Profile; SPEC'M 07/20/16 07:10 Test: GLUCOSE, FASTING; Value: 286; Range: 70-105; Abnormal: Above high normal; Units: MG/DL; Status: F Test: BLOOD UREA NITROGEN; Value: 13; Range: 7-18; Units: MG/DL; Status: F Test: CREATININE FOR GFR; Value: 0.58; Range: 0.55-1.02; Units: MG/DL; Status: F Test: GLOMERULAR FILTRATION RATE; Value: > 60.0; Range: >51; Status: F Test: SODIUM LEVEL; Value: 137; Range: 136-145; Units: MEQ/L; Status: F Test: POTASSIUM SERUM; Value: 4.2; Range: 3.5-5.1; Units: MEQ/L; Status: F Test: CHLORIDE LEVEL; Value: 102; Range: 98-107; Units: MEQ/L; Status: F Test: CARBON DIOXIDE LEVEL; Value: 27; Range: 21-32; Units: MEQ/L; Status: F Test: ANION GAP; Value: 8; Range: 8-16; Units: MEQ/L; Status: F Test: CALCIUM LEVEL; Value: 8.2; Range: 8.5-10.1; Abnormal: Below low normal; Units: MG/DL; Status: F Test Note: ; Units are mL/min/1.73 m2 Chronic Kidney Disease Staging per NKF: Stage I & II GFR >=60 Normal to Mildly Decreased Stage III GFR 30-59 Moderately Decreased Stage IV GFR 15-29 Severely Decreased Stage V GFR <15 Very Little GFR Left ESRD GFR <15 on ROLLER EMBOSSER Radiology Order: Chest, 2 View (pa\E\lat) Test: Chest, 2 View (pa\E\lat) REASON FOR EXAMINATION: Cough; Clinical: Acute cough .; ; Comparison: 06/10/2011 .; ; Technique: PA and lateral.; ; Findings:; The mediastinum and cardiac silhouette are normal. The lung nicholson are clear and; without acute consolidation, effusion, or pneumothorax. The skeletal structures; are intact and normal.; ; Impression:; 1. No acute cardiopulmonary process.; ; ; Signed by; Garrick Stevenson MD 07/20/2016 07:57 A; Outcome: 09:41 Discharge ordered by Provider. sd1 09:54 Discharge Assessment: Patient awake, alert and oriented x 3. No cognitive and/or dsf functional deficits noted. Patient verbalized understanding of disposition instructions. patient administered narcotics - no. The following High Risk Discharge criteria are identified: None. Discharged to home ambulatory. Condition: improved. Discharge instructions given to patient, Instructed on discharge instructions, follow up and referral plans. medication usage, Demonstrated understanding of instructions, medications, Pt was receptive of discharge instructions/ teaching. Prescriptions given X 4, Work note provided to patient. No special radiology studies were completed. Property sent home with patient. 10:03 Patient left the ED. dsf Signatures: Dispatcher [employer] EDMS Akila Newell MD MD sd1 Lauren Pack, Reg Reg gb Salud Junior km6 Sasha PollardRN RN ck1 Elidia GuerreroRN RN lf1 Natasha LehmanRN RN dsf Satya Storey DO DO cs11 Maye MunroeRN RN nn1 Natalie Moreno jp5 Thalia Bradshaw, Reg Reg hs2 Corrections: (The following items were deleted from the chart) 09:56 09:07 BP 171 / 80 Auto; Pulse 81bpm; Resp 20bpm; Pulse Ox 97% RA; Pain 2/10; dsf dsf Chart Complete MTDD
== END 2016-07-20 10:03 | disposition home or self-care (01) ==
LOC: M ED 06:09
DX: R05 Cough (principal); R19.7 Diarrhea, unspecified; I10 Essential (primary) hypertension; E11.9 Type 2 diabetes mellitus without complications; E78.00 Pure hypercholesterolemia, unspecified; F32.9 Major depressive disorder, single episode, unspecified; J30.9 Allergic rhinitis, unspecified; Z79.82 Long term (current) use of aspirin; Z79.4 Long term (current) use of insulin; Z79.84 Long term (current) use of oral hypoglycemic drugs; Z88.0 Allergy status to penicillin; Z88.8 Allergy status to other drugs, medicaments and biological substances

== ENCOUNTER → 2017-01-01 | Outpatient (CLI) | payer OTHER ==
[2017-01-01 18:24] LABS: ALBUMIN 3.9 GM/DL (3.2-5.2); ALBUMIN/GLOBULIN RATIO 1.26 (1.00-1.93); ALKALINE PHOSPHATASE 111 U/L (45-117); ALT/SGPT 34 U/L (12-78); ANION GAP 8 MEQ/L (8-16); AST/SGOT 21 U/L (15-37); BILIRUBIN,TOTAL 0.7 MG/DL (0.2-1.0); BLOOD UREA NITROGEN 17 MG/DL (7-18); CALCIUM LEVEL 9.3 MG/DL (8.5-10.1); CARBON DIOXIDE LEVEL 23 MEQ/L (21-32); CHLORIDE LEVEL 105 MEQ/L (98-107); CREATININE FOR GFR 0.67 MG/DL (0.55-1.02); GLOMERULAR FILTRATION RATE > 60.0 (>51); GLUCOSE, FASTING 143 MG/DL (70-105); MAGNESIUM LEVEL 1.6 MG/DL (1.8-2.4); POTASSIUM SERUM 4.4 MEQ/L (3.5-5.1); SODIUM LEVEL 136 MEQ/L (136-145)
== END ==
LOC: M WUC 10:35
PROVIDERS: ATTEND Nurse Practitioner Family
DX: E11.29 Type 2 diabetes mellitus with other diabetic kidney complication (principal); E61.2 Magnesium deficiency; E55.9 Vitamin D deficiency, unspecified

== ENCOUNTER → 2017-01-27 | Outpatient (CLI) | payer OTHER ==
--- NOTE | 2017-01-27 14:35 | REPMRS ---
Patient History The patient states she had a clinical breast exam in 01/2017. Patient is postmenopausal. Family history of ovarian cancer in mother at age 63 and ovarian cancer in maternal grandmother at age 50. Digital Woman Screen Mammo: January 27, 2017 - Exam #: [id number] Bilateral CC and MLO view(s) were taken. Technologist: Alicia Roblero Technologist Prior study comparison: October 08, 2014, digital woman screen mammo performed at [facility]. October 28, 2008, bilateral digital woman screen mammo, performed at [facility]. FINDINGS: There are scattered fibroglandular densities. There has been no change in the appearance of the mammogram from the prior studies. There is a mild amount of residual fibroglandular tissue which is fairly symmetric. There is no interval development of dominant mass, architectural distortion, or clustered microcalcification suggestive of malignancy. ASSESSMENT: BI-RADS/ACR category 1 mammogram. Negative. Recommendation Routine screening mammogram in 1 year (for women over age 40). This mammogram was interpreted with the aid of an FDA-approved computer-aided dectection system. Electronically Signed By: Major Garsia MD 01/27/17 [id number]
== END ==
LOC: M WHC 13:48
PROVIDERS: ATTEND Nurse Practitioner Family
DX: Z12.31 Encounter for screening mammogram for malignant neoplasm of breast (principal); Z78.0 Asymptomatic menopausal state; Z80.41 Family history of malignant neoplasm of ovary

== ENCOUNTER → 2017-05-10 | Outpatient (CLI) | payer OTHER ==
[2017-05-10 10:36] LABS: ALBUMIN 3.7 GM/DL (3.2-5.2); ALBUMIN/GLOBULIN RATIO 1.06 (1.00-1.93); ALKALINE PHOSPHATASE 128 U/L (45-117); ALT/SGPT 43 U/L (12-78); ANION GAP 9 MEQ/L (8-16); AST/SGOT 22 U/L (7-37); BILIRUBIN,TOTAL 0.6 MG/DL (0.2-1.0); BLOOD UREA NITROGEN 16 MG/DL (7-18); CALCIUM LEVEL 9.3 MG/DL (8.5-10.1); CARBON DIOXIDE LEVEL 22 MEQ/L (21-32); CHLORIDE LEVEL 109 MEQ/L (98-107); CREATININE FOR GFR 0.82 MG/DL (0.55-1.02); GLOMERULAR FILTRATION RATE > 60.0 (>51); GLUCOSE, FASTING 283 MG/DL (70-105); MAGNESIUM LEVEL 1.6 MG/DL (1.8-2.4); POTASSIUM SERUM 4.9 MEQ/L (3.5-5.1); SODIUM LEVEL 140 MEQ/L (136-145); TOTAL PROTEIN 7.2 GM/DL (6.4-8.2)
== END ==
LOC: M WUC 08:03
PROVIDERS: ATTEND Nurse Practitioner Family
DX: I10 Essential (primary) hypertension (principal); E11.29 Type 2 diabetes mellitus with other diabetic kidney complication

== ENCOUNTER → 2017-08-16 | Outpatient (CLI) | payer OTHER ==
[2017-08-16 09:32] LABS: ESTIMATED AVERAGE GLUCOSE 255 MG/DL (60-110); HEMOGLOBIN A1c 10.5 %
[2017-08-16 09:55] LABS: ALBUMIN 3.6 GM/DL (3.2-5.2); ALBUMIN/GLOBULIN RATIO 1.16 (1.00-1.93); ALKALINE PHOSPHATASE 118 U/L (45-117); ALT/SGPT 34 U/L (12-78); ANION GAP 7 MEQ/L (8-16); AST/SGOT 23 U/L (7-37); BILIRUBIN,TOTAL 0.5 MG/DL (0.2-1.0); BLOOD UREA NITROGEN 20 MG/DL (7-18); CALCIUM LEVEL 8.6 MG/DL (8.5-10.1); CARBON DIOXIDE LEVEL 25 MEQ/L (21-32); CHLORIDE LEVEL 107 MEQ/L (98-107); CREATININE FOR GFR 0.77 MG/DL (0.55-1.30); GLOMERULAR FILTRATION RATE > 60.0 (>51); GLUCOSE, FASTING 225 MG/DL (70-100); MAGNESIUM LEVEL 1.4 MG/DL (1.8-2.4); SODIUM LEVEL 139 MEQ/L (136-145); TOTAL PROTEIN 6.7 GM/DL (6.4-8.2)
[2017-08-16 10:11] LABS: TOTAL 25(OH) VITAMIN D 63.9 NG/ML (30.0-100.0)
== END ==
LOC: M WUC 08:12
DX: E11.29 Type 2 diabetes mellitus with other diabetic kidney complication (principal)

== ENCOUNTER → 2018-05-18 | Outpatient (CLI) | payer OTHER | LOC: M WUC 15:51 | DX: M47.896 Other spondylosis, lumbar region (principal); M16.11 Unilateral primary osteoarthritis, right hip | CPT/HCPCS: 87186 ==

== ENCOUNTER → 2018-06-19 | Outpatient (CLI) | payer OTHER ==
[2018-06-19 13:10] LABS: ALBUMIN 3.9 GM/DL (3.2-5.2); ALT/SGPT 31 U/L (12-78); BILIRUBIN,TOTAL 0.6 MG/DL (0.2-1.0); BLOOD UREA NITROGEN 22 MG/DL (7-18); CALCIUM LEVEL 9.1 MG/DL (8.5-10.1); CARBON DIOXIDE LEVEL 22 MEQ/L (21-32); CHLORIDE LEVEL 104 MEQ/L (98-107); CHOLESTEROL LEVEL 188 MG/DL (<200); CHOLESTEROL RISK RATIO 4.086 (<5); CREATININE FOR GFR 0.96 MG/DL (0.55-1.30); GLOMERULAR FILTRATION RATE > 60.0 (>51); GLUCOSE, FASTING 317 MG/DL (70-100); HDL CHOLESTEROL 46 MG/DL (>40); LDL CHOLESTEROL 86 MG/DL (<100); NON-HDL-C 142 MG/DL; POTASSIUM SERUM 4.9 MEQ/L (3.5-5.1); SODIUM LEVEL 136 MEQ/L (136-145); TOTAL PROTEIN 7.2 GM/DL (6.4-8.2); TRIGLYCERIDES LEVEL 278 MG/DL (<150)
[2018-06-19 15:27] LABS: MAU/CREAT RATIO 87.8 MCG/MG (0.0-30.0)
== END ==
LOC: M WUC 09:56
PROVIDERS: ATTEND Nurse Practitioner Family
DX: E78.5 Hyperlipidemia, unspecified (principal); E11.65 Type 2 diabetes mellitus with hyperglycemia

== ENCOUNTER 2018-07-10 07:50 | Emergency (ER) | payer OTHER ==
[~2018-07-10] VITALS: Ht 167.6 cm; Wt 86.4 kg
[2018-07-10] MEDS ORDERED: MAG400TA (07:58)
[2018-07-10] MEDS ORDERED: BISO5TAB5 (07:58)
[2018-07-10] MEDS ORDERED: LISI10TA4 (07:58)
[2018-07-10] MEDS ORDERED: VITA50005 (07:58)
[2018-07-10] MEDS ORDERED: SERT-138 (07:58)
[2018-07-10] MEDS ORDERED: ATOR80TA59 (07:58)
[2018-07-10] MEDS ORDERED: METF10004 (07:58)
[2018-07-10] MEDS ORDERED: MORPHINE 4 MG/ML 1ML VIAL/SYRINGE (J2270) IV ONE ×2 (09:15→12:45)
[2018-07-10] MEDS ORDERED: LISINOPRIL 10 MG TAB PO ONE (09:15)
[2018-07-10] MEDS ORDERED: BISOPROLOL FUMARATE 5 MG TAB PO ONE (09:15)
[2018-07-10 09:50] LABS: BASO % 0.5 % (0.0-1.0); EOS # 0.2 10^3/uL (0.0-0.50); EOS % 1.9 % (0.0-3.0); HEMATOCRIT 40.4 % (36.0-47.0); HEMOGLOBIN 14.3 g/dl (12.0-15.5); LYMPH # 1.8 10^3/uL (1.5-4.5); LYMPH % 21.7 % (24.0-44.0); MEAN CORPUSCULAR HEMOGLOBIN 28.7 pg (27.0-33.0); MEAN CORPUSCULAR HGB CONC 35.4 g/dl (32.0-36.5); MONO # 0.7 10^3/uL (0.0-0.8); MONO % 8.4 % (0.0-5.0); NEUTROPHILS # 5.6 10^3/uL (1.8-7.7); NEUTROPHILS % 66.9 % (36.0-66.0); PLATELET COUNT, AUTOMATED 254 10^3/uL (150-450); RED BLOOD COUNT 4.99 10^6/uL (4.00-5.40); WHITE BLOOD COUNT 8.3 10^3/uL (4.0-10.0)
[2018-07-10 10:21] LABS: ALBUMIN 3.7 GM/DL (3.2-5.2); ALT/SGPT 27 U/L (12-78); BILIRUBIN,DIRECT 0.2 MG/DL (0.0-0.2); BILIRUBIN,TOTAL 0.7 MG/DL (0.2-1.0); BLOOD UREA NITROGEN 17 MG/DL (7-18); CALCIUM LEVEL 9.3 MG/DL (8.5-10.1); CARBON DIOXIDE LEVEL 23 MEQ/L (21-32); CHLORIDE LEVEL 100 MEQ/L (98-107); CREATININE FOR GFR 0.85 MG/DL (0.55-1.30); GLOMERULAR FILTRATION RATE > 60.0 (>51); GLUCOSE, FASTING 382 MG/DL (70-100); LIPASE 162 U/L (73-393); POTASSIUM SERUM 4.5 MEQ/L (3.5-5.1); SODIUM LEVEL 134 MEQ/L (136-145); TOTAL PROTEIN 7.4 GM/DL (6.4-8.2)
--- NOTE | 2018-07-10 12:24 | REP ---
MRI lumbar spine without contrast: History: Low back pain and urinary incontinence issues. Comparison is made with the recent prior MRI study of the lumbar spine from [facility] dated June 19, 2018. Technique: Sagittal and axial T1 and T2-weighted scans are acquired in the usual fashion with and without fat saturation. Sequences include spin echo, turbo spin-echo, and STIR imaging sequences. MRI findings: Lumbar vertebral body heights are preserved. Alignment is normal. There are reactive marrow changes associated with degenerative disc disease at the L4-5 disc level unchanged from the comparison study. There is a small hemangioma in the L1 vertebral body unchanged. At the T12-L1 disc level there is disc space narrowing and posterior disc bulging effacing the ventral subarachnoid space but not compressing the lower thoracic cord. The conus is normal in position and appearance at L1-L2. There is a small right paracentral disc protrusion at L1-L2. At L2-L3, there is diffuse posterior disc bulging. Left lateral disc bulging is seen at L2-L3. Mild central canal narrowing is seen and L2-L3. Findings are unchanged. At L3-4, there is mild central canal stenosis due to disc bulging, ligamentum flavum and facet hypertrophy unchanged from the comparison study. At L4-5, there is moderate central canal stenosis due to diffuse disc bulging, ligamentum flavum hypertrophy, and facet joint hypertrophy present bilaterally. This is unchanged from the comparison study. There is left-sided neural foraminal narrowing at L4-5. At L5-S1, there is facet hypertrophy bilaterally. No central canal stenosis or neural foraminal narrowing is seen. Impression: Mild to moderate central canal stenosis and L2-3 through L4-5, most pronounced at L4-5 and unchanged from the prior study. Left lateral disc bulging at L2-3. Small HNP on the right at L1-2. The findings are unchanged from the recent comparison study of 19 June 2018. Electronically Signed by Alec Hargrove MD 07/10/2018 12:53 P
[2018-07-10 13:34] VITALS: BP 122/65
== END 2018-07-10 14:02 | disposition home or self-care (01) ==
LOC: M ED 07:50
DX: M54.5 Low back pain (principal); M48.061 Spinal stenosis, lumbar region without neurogenic claudication; E11.9 Type 2 diabetes mellitus without complications; I10 Essential (primary) hypertension; K76.0 Fatty (change of) liver, not elsewhere classified; E55.9 Vitamin D deficiency, unspecified; M06.9 Rheumatoid arthritis, unspecified; K21.9 Gastro-esophageal reflux disease without esophagitis; F41.9 Anxiety disorder, unspecified; F32.9 Major depressive disorder, single episode, unspecified; R16.2 Hepatomegaly with splenomegaly, not elsewhere classified; Z79.899 Other long term (current) drug therapy; Z88.6 Allergy status to analgesic agent; Z88.8 Allergy status to other drugs, medicaments and biological substances
CPT/HCPCS: 72148; 80048; 80076; 81001; 83690; 85025; 96374; 96376; 99284; J2270

== ENCOUNTER → 2018-07-18 | Outpatient (REF) | payer OTHER ==
[~2018-07-18] MED LIST: ATOR80TA59; BISO5TAB5; LISI10TA4; MAG400TA; METF10004; SERT-138; VITA50005
[2018-07-18 12:35] LABS: BASO % 0.3 % (0.0-1.0); EOS # 0.1 10^3/uL (0.0-0.50); EOS % 0.7 % (0.0-3.0); HEMATOCRIT 42.1 % (36.0-47.0); HEMOGLOBIN 14.7 g/dl (12.0-15.5); LYMPH # 1.6 10^3/uL (1.5-4.5); LYMPH % 15.1 % (24.0-44.0); MEAN CORPUSCULAR HEMOGLOBIN 28.4 pg (27.0-33.0); MEAN CORPUSCULAR HGB CONC 34.9 g/dl (32.0-36.5); MEAN CORPUSCULAR VOLUME 81.3 fl (80.0-96.0); MONO # 0.9 10^3/uL (0.0-0.8); MONO % 8.4 % (0.0-5.0); NEUTROPHILS # 8.2 10^3/uL (1.8-7.7); NEUTROPHILS % 75.1 % (36.0-66.0); PLATELET COUNT, AUTOMATED 317 10^3/uL (150-450); RED BLOOD COUNT 5.18 10^6/uL (4.00-5.40); WHITE BLOOD COUNT 10.9 10^3/uL (4.0-10.0)
[2018-07-18 12:59] LABS: C REACTIVE PROTEIN QUANTITATIV 1.43 MG/DL (0.00-0.30); RHEUMATOID FACTOR QUANT 26.7 IU/ML (<15.0); URIC ACID 3.7 MG/DL (2.6-6.0)
[2018-07-18 13:01] LABS: ERYTHROCYTE SEDIMENTATION RATE 41 mm/hr (0-30)
== END ==
LOC: M LABDRAWP 10:46
PROVIDERS: ATTEND Physician Assistant Surgical
DX: M48.061 Spinal stenosis, lumbar region without neurogenic claudication (principal)

== ENCOUNTER → 2018-10-12 | Outpatient (CLI) | payer OTHER ==
[2018-10-12 15:08] LABS: ALBUMIN 3.7 GM/DL (3.2-5.2); ALT/SGPT 23 U/L (12-78); BILIRUBIN,TOTAL 0.4 MG/DL (0.2-1.0); BLOOD UREA NITROGEN 34 MG/DL (7-18); CALCIUM LEVEL 9.4 MG/DL (8.5-10.1); CARBON DIOXIDE LEVEL 23 MEQ/L (21-32); CHLORIDE LEVEL 109 MEQ/L (98-107); CREATININE FOR GFR 0.81 MG/DL (0.55-1.30); GLOMERULAR FILTRATION RATE > 60.0 (>51); GLUCOSE, FASTING 133 MG/DL (70-100); POTASSIUM SERUM 5.4 MEQ/L (3.5-5.1); SODIUM LEVEL 138 MEQ/L (136-145)
[2018-10-12 15:21] LABS: CREATININE, URINE 62.4 MG/DL
[2018-10-12 15:54] LABS: HEMOGLOBIN A1c 7.6 %
== END ==
LOC: M WUC 08:34
PROVIDERS: ATTEND Nurse Practitioner Family
DX: E11.29 Type 2 diabetes mellitus with other diabetic kidney complication (principal)

== ENCOUNTER 2018-11-01 09:01 | Emergency (ER) | payer MEDICAID, OTHER ==
[~2018-11-01] VITALS: Ht 167.6 cm; Wt 89.9 kg
[2018-11-01] MEDS ORDERED: ASPI81TA33 PO (09:11)
[2018-11-01] MEDS ORDERED: METH75TA PO (09:11)
[2018-11-01] MEDS ORDERED: LYRI75CA PO (09:11)
[2018-11-01] MEDS ORDERED: CYMB60CA3 PO (09:11)
[2018-11-01] MEDS ORDERED: insulin 70/30 SC (09:11)
[2018-11-01] MEDS ORDERED: FLUORESCEIN OPHTH 1 MG STRIP OD ONE (10:00)
[2018-11-01] MEDS ORDERED: cefTRIAXone SOD 2 GM VIAL (J0696) IM ONE (10:30)
[2018-11-01] MEDS ORDERED: LIDOCAINE 1% SDV 5 ML VIAL DILUENT ONE (10:30)
[2018-11-01] MEDS ORDERED: KEFL500C17 PO (11:23)
[2018-11-01 11:34] VITALS: BP 181/89
== END 2018-11-01 11:47 | disposition home or self-care (01) ==
LOC: M ED 09:01
DX: L03.213 Periorbital cellulitis (principal); E11.9 Type 2 diabetes mellitus without complications; K21.9 Gastro-esophageal reflux disease without esophagitis; Z79.82 Long term (current) use of aspirin; Z88.1 Allergy status to other antibiotic agents; Z88.8 Allergy status to other drugs, medicaments and biological substances
CPT/HCPCS: 96372; 99283; J0696

== ENCOUNTER → 2018-11-02 | Outpatient (REF) | payer MEDICAID ==
[~2018-11-02] MED LIST changes: +ASPI81TA33 PO; +CYMB60CA3 PO; +KEFL500C17 PO; +LYRI75CA PO; +METH75TA PO; +insulin 70/30 SC
== END ==
LOC: M LAB REF 15:31
PROVIDERS: ATTEND Ophthalmology
DX: H05.011 Cellulitis of right orbit (principal)

== ENCOUNTER 2018-11-06 12:09 | Emergency (ER) | payer MEDICAID ==
[~2018-11-06] VITALS: Ht 167.6 cm; Wt 91.1 kg
[2018-11-06 12:57] LABS: HEMATOCRIT 38.3 % (36.0-47.0); MEAN CORPUSCULAR HEMOGLOBIN 27.7 pg (27.0-33.0); MEAN CORPUSCULAR HGB CONC 33.9 g/dl (32.0-36.5); MEAN CORPUSCULAR VOLUME 81.5 fl (80.0-96.0); PLATELET COUNT, AUTOMATED 325 10^3/uL (150-450); WHITE BLOOD COUNT 9.9 10^3/uL (4.0-10.0)
[2018-11-06 13:33] LABS: ACETAMINOPHEN LEVEL < 2.0 UG/ML (10.0-30.0); ALBUMIN 3.3 GM/DL (3.2-5.2); ALT/SGPT 31 U/L (12-78); BILIRUBIN,DIRECT < 0.1 MG/DL (0.0-0.2); BILIRUBIN,TOTAL 0.5 MG/DL (0.2-1.0); BLOOD UREA NITROGEN 24 MG/DL (7-18); CALCIUM LEVEL 9.1 MG/DL (8.5-10.1); CARBON DIOXIDE LEVEL 25 MEQ/L (21-32); CHLORIDE LEVEL 104 MEQ/L (98-107); CREATININE FOR GFR 0.92 MG/DL (0.55-1.30); ETHYL ALCOHOL (ETHANOL) < 0.003 % (0.000-0.010); GLOMERULAR FILTRATION RATE > 60.0 (>51); GLUCOSE, FASTING 243 MG/DL (70-100); POTASSIUM SERUM 4.8 MEQ/L (3.5-5.1); SALICYLATE LEVEL < 1.7 MG/DL (5.0-30.0); SODIUM LEVEL 141 MEQ/L (136-145); TOTAL PROTEIN 7.1 GM/DL (6.4-8.2)
[2018-11-06 14:12] LABS: AMPHETAMINES LEVEL URINE NEGATIVE (NEGATIVE); BARBITURATES URINE NEGATIVE (NEGATIVE); BENZODIAZEPINES URINE NEGATIVE (NEGATIVE); CANNABINOIDS URINE NEGATIVE (NEGATIVE); COCAINE METABOLITE URINE NEGATIVE (NEGATIVE); METHADONE URINE NEGATIVE (NEGATIVE); OPIATES URINE NEGATIVE (NEGATIVE); PHENCYCLIDINE URINE NEGATIVE (NEGATIVE)
[2018-11-06 14:28] VITALS: BP 138/67
== END 2018-11-06 14:41 | disposition home or self-care (01) ==
LOC: M ED 12:09
DX: F43.20 Adjustment disorder, unspecified (principal); M48.00 Spinal stenosis, site unspecified; G62.9 Polyneuropathy, unspecified; Z79.899 Other long term (current) drug therapy; Z88.1 Allergy status to other antibiotic agents; Z88.8 Allergy status to other drugs, medicaments and biological substances
CPT/HCPCS: 36415; 80048; 80076; 80307; 84443; 85027; 99284; G0480

== ENCOUNTER → 2018-11-20 | Outpatient (CLI) | payer OTHER ==
[2018-11-20 16:54] LABS: CREATININE FOR GFR 1.19 MG/DL (0.55-1.30); GLOMERULAR FILTRATION RATE 49.6 (>51); POTASSIUM SERUM 5.1 MEQ/L (3.5-5.1)
== END ==
LOC: M WUC 14:22
PROVIDERS: ATTEND Nurse Practitioner Family
DX: E87.5 Hyperkalemia (principal)

== ENCOUNTER → 2018-12-07 | Outpatient (REF) | payer OTHER ==
[~2018-12-07] MED LIST changes: -METF10004; +METF10004 PO; +OXYC1TAB15 PO; +PANT40TA3 PO; +PAZE1DRO; +PLAV1TAB2 PO; +SULF1TAB72 PO; +SULF500T2 PO; +ZOFR4TAB16 PO
[2018-12-07 12:51] LABS: BASO % 0.5 % (0.0-1.0); EOS # 0.2 10^3/uL (0.0-0.50); EOS % 2.9 % (0.0-3.0); HEMATOCRIT 37.6 % (36.0-47.0); HEMOGLOBIN 12.5 g/dl (12.0-15.5); LYMPH # 1.7 10^3/uL (1.5-4.5); LYMPH % 21.5 % (24.0-44.0); MEAN CORPUSCULAR HEMOGLOBIN 27.2 pg (27.0-33.0); MEAN CORPUSCULAR HGB CONC 33.2 g/dl (32.0-36.5); MEAN CORPUSCULAR VOLUME 81.9 fl (80.0-96.0); MONO # 0.6 10^3/uL (0.0-0.8); MONO % 7.8 % (0.0-5.0); NEUTROPHILS # 5.4 10^3/uL (1.8-7.7); NEUTROPHILS % 66.9 % (36.0-66.0); PLATELET COUNT, AUTOMATED 299 10^3/uL (150-450); RED BLOOD COUNT 4.59 10^6/uL (4.00-5.40); WHITE BLOOD COUNT 8.1 10^3/uL (4.0-10.0)
[2018-12-07 13:00] LABS: ALBUMIN 3.4 GM/DL (3.2-5.2); ALT/SGPT 49 U/L (12-78); BILIRUBIN,TOTAL 0.4 MG/DL (0.2-1.0); BLOOD UREA NITROGEN 22 MG/DL (7-18); CALCIUM LEVEL 9.3 MG/DL (8.5-10.1); CARBON DIOXIDE LEVEL 22 MEQ/L (21-32); CHLORIDE LEVEL 106 MEQ/L (98-107); CREATININE FOR GFR 0.97 MG/DL (0.55-1.30); GLOMERULAR FILTRATION RATE > 60.0 (>51); GLUCOSE, FASTING 373 MG/DL (70-100); RHEUMATOID FACTOR QUANT 20.1 IU/ML (<15.0); SODIUM LEVEL 136 MEQ/L (136-145); TOTAL PROTEIN 7.2 GM/DL (6.4-8.2); URIC ACID 3.8 MG/DL (2.6-6.0)
[2018-12-07 13:02] LABS: TOTAL 25(OH) VITAMIN D 44.7 NG/ML (30.0-100.0)
[2018-12-07 13:23] LABS: HEMOGLOBIN A1c 8.8 %
[2018-12-12 14:20] LABS: ALBUMIN % 55.6 % (55.8-66.1); ALPHA-1-GLOBULIN % 5.3 % (2.9-4.9); ALPHA-2-GLOBULINS % 12.4 % (7.1-11.8)
[2018-12-12 14:21] LABS: ALPHA-1-GLOBULINS 0.38 GM/DL (0.17-0.41); ALPHA-2-GLOBULINS 0.89 GM/DL (0.42-0.99); BETA-1-GLOBULINS 0.53 GM/DL (0.28-0.60); BETA-1-GLOBULINS % 7.4 % (4.7-7.2); BETA-2-GLOBULINS 0.49 GM/DL (0.19-0.55); BETA-2-GLOBULINS % 6.8 % (3.2-6.5); GAMMA GLOBULIN % 12.5 % (11.1-18.8)
== END ==
LOC: M SFHCPLAZ 09:00
PROVIDERS: ATTEND Internal Medicine Rheumatology
DX: M05.9 Rheumatoid arthritis with rheumatoid factor, unspecified (principal); E11.29 Type 2 diabetes mellitus with other diabetic kidney complication; E55.9 Vitamin D deficiency, unspecified

== ENCOUNTER 2018-12-11 10:04 | Emergency (ER) | payer OTHER ==
[~2018-12-11] VITALS: Ht 167.6 cm; Wt 91.9 kg
[~2018-12-11 10:04] MED LIST changes: +METH750T2 PO; -METH75TA PO; -OXYC1TAB15 PO; -PANT40TA3 PO; -PAZE1DRO; -PLAV1TAB2 PO; -SULF1TAB72 PO; -SULF500T2 PO; -ZOFR4TAB16 PO
[2018-12-11] MEDS ORDERED: PAZE1DRO (10:32)
[2018-12-11] MEDS ORDERED: SULF500T2 PO (10:32)
[2018-12-11] MEDS ORDERED: PLAV1TAB2 PO (10:32)
[2018-12-11] MEDS ORDERED: SULF1TAB72 PO (10:32)
[2018-12-11] MEDS ORDERED: OXYC1TAB15 PO (10:32)
[2018-12-11 11:10] LABS: BASO % 0.4 % (0.0-1.0); EOS # 0.2 10^3/uL (0.0-0.50); EOS % 2.4 % (0.0-3.0); HEMATOCRIT 38.7 % (36.0-47.0); LYMPH # 2.1 10^3/uL (1.5-4.5); LYMPH % 23.1 % (24.0-44.0); MEAN CORPUSCULAR HEMOGLOBIN 28.1 pg (27.0-33.0); MEAN CORPUSCULAR HGB CONC 33.6 g/dl (32.0-36.5); MEAN CORPUSCULAR VOLUME 83.6 fl (80.0-96.0); MONO # 0.8 10^3/uL (0.0-0.8); MONO % 8.6 % (0.0-5.0); NEUTROPHILS # 5.9 10^3/uL (1.8-7.7); NEUTROPHILS % 65.2 % (36.0-66.0); PLATELET COUNT, AUTOMATED 256 10^3/uL (150-450); RED BLOOD COUNT 4.63 10^6/uL (4.00-5.40); WHITE BLOOD COUNT 9.1 10^3/uL (4.0-10.0)
[2018-12-11] MEDS ORDERED: ONDANSETRON 4MG/2ML VIAL (J2405) IV ONE (11:15)
[2018-12-11] MEDS ORDERED: GI COCKTAIL 50ML BTL(HYOSCYAMINE/MAALOX/LIDOCAINE VISCOUS)(1:3:1) PO ONE (11:15)
[2018-12-11 11:42] LABS: ALBUMIN 3.4 GM/DL (3.2-5.2); ALT/SGPT 43 U/L (12-78); BILIRUBIN,DIRECT < 0.1 MG/DL (0.0-0.2); BILIRUBIN,TOTAL 0.4 MG/DL (0.2-1.0); BLOOD UREA NITROGEN 22 MG/DL (7-18); CALCIUM LEVEL 9.3 MG/DL (8.5-10.1); CARBON DIOXIDE LEVEL 23 MEQ/L (21-32); CHLORIDE LEVEL 107 MEQ/L (98-107); CREATININE FOR GFR 1.02 MG/DL (0.55-1.30); GLOMERULAR FILTRATION RATE 59.3 (>51); GLUCOSE, FASTING 78 MG/DL (70-100); LIPASE 166 U/L (73-393); POTASSIUM SERUM 4.7 MEQ/L (3.5-5.1); SODIUM LEVEL 139 MEQ/L (136-145); TOTAL PROTEIN 6.9 GM/DL (6.4-8.2)
--- NOTE | 2018-12-11 13:01 | REP ---
Clinical: Right upper quadrant pain. Technique: Real time nichols scale ultrasound examination using curved array transducer. Findings: Liver is normal in contour, size, echogenicity without focal hepatic lesion identified. Pancreas is incompletely evaluated due to interposed bowel gas but visualized portions appear normal. The gallbladder demonstrates small amount of layering sludge without wall thickening or pericholecystic fluid and no sonographic Martin's sign during examination. No biliary ductal dilatation is appreciated and the common bile duct measures 4.0 mm diameter. The right kidney is normal in reniform shape without hydronephrosis and measures 12.4 x 4.5 x 4.3 cm. No ascites in the right upper quadrant. Impression: Small amount of layering sludge within the gallbladder without sonographic evidence for acute cholecystitis. Electronically Signed by Garrick Stevenson MD 12/11/2018 12:52 P
[2018-12-11 13:04] VITALS: BP 132/72
[2018-12-11] MEDS ORDERED: PANTOPRAZOLE 40MG TAB (PROTONIX) PO ONE (13:15)
[2018-12-11] MEDS ORDERED: PANT40TA3 PO (13:19)
[2018-12-11] MEDS ORDERED: ZOFR4TAB16 PO (13:20)
--- NOTE | 2018-12-11 22:01 | ECGEPIP ---
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 Order Number: [id number] Reading MD: Ventura Henning Measurements Intervals [place] Rate: 68 P: 27 KS: 168 QRS: QRSD: 79 T: 44 QT: 374 QTc: 400 Interpretive Statements SINUS RHYTHM LOW QRS VOLTAGE IN PRECORDIAL LEADS ANTEROSEPTAL MYOCARDIAL INFARCTION, PROBABLY OLD NSTTW ABNORMALITIES NO PRIORS FOR COMPARISON Electronically Signed on 12-11-2018 22:01:09 EDT by Ventura Henning
== END 2018-12-11 13:37 | disposition home or self-care (01) ==
LOC: M ED 10:04
DX: K21.9 Gastro-esophageal reflux disease without esophagitis (principal); K80.51 Calculus of bile duct without cholangitis or cholecystitis with obstruction; E11.9 Type 2 diabetes mellitus without complications; E78.5 Hyperlipidemia, unspecified; I10 Essential (primary) hypertension; I67.2 Cerebral atherosclerosis; F32.9 Major depressive disorder, single episode, unspecified; G90.09 Other idiopathic peripheral autonomic neuropathy; M54.9 Dorsalgia, unspecified; Z79.4 Long term (current) use of insulin; Z79.84 Long term (current) use of oral hypoglycemic drugs; Z79.891 Long term (current) use of opiate analgesic; Z79.899 Other long term (current) drug therapy; Z88.0 Allergy status to penicillin; Z88.3 Allergy status to other anti-infective agents
CPT/HCPCS: 36415; 76705; 80048; 80076; 83690; 85025; 93005; 96374; 99284; J2405

== ENCOUNTER 2018-12-18 07:49 | Emergency (ER) | payer OTHER ==
[~2018-12-18] VITALS: Ht 167.6 cm; Wt 85.2 kg
[~2018-12-18 07:49] MED LIST changes: +OXYC1TAB15 PO; +PANT40TA3 PO; +PAZE1DRO; +PLAV1TAB2 PO; +SULF1TAB72 PO; +SULF500T2 PO; +ZOFR4TAB16 PO
[2018-12-18] MEDS ORDERED: ONDANSETRON 4MG/2ML VIAL (J2405) IV ONE ×2 (08:30→11:15)
[2018-12-18] MEDS ORDERED: KETOROLAC 30 MG/ML VIAL (J1885) IV ONE (08:45)
[2018-12-18] MEDS: GASTROGRAFIN SOLUTION 30ML PO SCH ×2 (09:04→09:44)
[2018-12-18 09:46] LABS: BASO % 0.3 % (0.0-1.0); EOS # 0.1 10^3/uL (0.0-0.50); EOS % 1.8 % (0.0-3.0); HEMATOCRIT 36.3 % (36.0-47.0); HEMOGLOBIN 12.1 g/dl (12.0-15.5); LYMPH # 1.5 10^3/uL (1.5-4.5); LYMPH % 19.1 % (24.0-44.0); MEAN CORPUSCULAR HEMOGLOBIN 27.9 pg (27.0-33.0); MEAN CORPUSCULAR HGB CONC 33.3 g/dl (32.0-36.5); MEAN CORPUSCULAR VOLUME 83.8 fl (80.0-96.0); MONO # 0.6 10^3/uL (0.0-0.8); NEUTROPHILS # 5.6 10^3/uL (1.8-7.7); NEUTROPHILS % 71.3 % (36.0-66.0); PLATELET COUNT, AUTOMATED 242 10^3/uL (150-450); RED BLOOD COUNT 4.33 10^6/uL (4.00-5.40); WHITE BLOOD COUNT 7.8 10^3/uL (4.0-10.0)
[2018-12-18 09:56] LABS: PROTHROMBIN TIME 12.9 SECONDS (11.8-14.0)
[2018-12-18 09:57] LABS: PARTIAL THROMBOPLASTIN TIME 25.8 SECONDS (25.0-38.4)
[2018-12-18 10:05] LABS: ALBUMIN 3.2 GM/DL (3.2-5.2); ALT/SGPT 28 U/L (12-78); AMYLASE 48 U/L (25-115); BILIRUBIN,DIRECT 0.1 MG/DL (0.0-0.2); BILIRUBIN,TOTAL 0.4 MG/DL (0.2-1.0); BLOOD UREA NITROGEN 20 MG/DL (7-18); CALCIUM LEVEL 9.1 MG/DL (8.5-10.1); CARBON DIOXIDE LEVEL 22 MEQ/L (21-32); CHLORIDE LEVEL 110 MEQ/L (98-107); CREATININE FOR GFR 0.99 MG/DL (0.55-1.30); GLOMERULAR FILTRATION RATE > 60.0 (>51); GLUCOSE, FASTING 120 MG/DL (70-100); LIPASE 77 U/L (73-393); POTASSIUM SERUM 3.9 MEQ/L (3.5-5.1); SODIUM LEVEL 139 MEQ/L (136-145); TOTAL PROTEIN 6.8 GM/DL (6.4-8.2)
[2018-12-18] MEDS ORDERED: ISOVUE-370 76% 100ML VIAL (Q9967) As Ordered ONE (10:36)
[2018-12-18] MEDS ORDERED: NS 1,000 ML IV SCH (11:00)
--- NOTE | 2018-12-18 11:26 | REP ---
CT ABDOMEN AND PELVIS WITH ORAL AND IV CONTRAST: TECHNIQUE: Axial contrast enhanced images from the lung bases to the pubic symphysis using 100 mL Isovue 370 intravenous contrast material with multiplanar reformations. No infiltrate is seen in the visualized lung bases. The liver demonstrates no evidence of a mass. The gallbladder is distended. The spleen is unremarkable as are the adrenals, pancreas and kidneys. There is no hydronephrosis. There is no abdominal aneurysm. There is no adenopathy. There is no free air or free fluid. No bowel wall thickening is seen. There is no evidence of appendicitis. No pelvic mass is seen. The urinary bladder is not well distended and not optimally evaluated. There are degenerative changes of the spine. IMPRESSION: Distended gallbladder. No other acute finding identified. No free air or free fluid. No evidence of appendicitis. Electronically Signed by Major Garsia MD 12/19/2018 09:44 A
--- NOTE | 2018-12-18 14:03 | REP ---
RIGHT UPPER QUADRANT ULTRASOUND: Real-time sonographic evaluation of the right upper quadrant performed. The gallbladder is distended and contains small amount of sludge and possibly some tiny stones. The patient is tender at that location. The gallbladder wall is slightly thickened at 4 mm. There is no pericholecystic fluid. There is no intrahepatic or extrahepatic biliary dilatation, common bile duct measuring 5 mm. The liver and pancreas demonstrates no gross abnormality, pancreas is not optimally seen due to overlying bowel gas. Right kidney demonstrates no hydronephrosis with normal size 12.4 cm in length. IMPRESSION: Sludge and possible tiny stones are seen in the gallbladder lumen with minor gallbladder wall thickening at 4 mm. No free fluid or biliary dilatation. Electronically Signed by Major Garsia MD 12/19/2018 09:58 A
[2018-12-18] MEDS ORDERED: ZOFR4TAB16 PO (14:19)
[2018-12-18 14:55] VITALS: BP 181/86
== END 2018-12-18 15:25 | disposition home or self-care (01) ==
LOC: M ED 07:49
DX: K52.9 Noninfective gastroenteritis and colitis, unspecified (principal); K21.9 Gastro-esophageal reflux disease without esophagitis; E78.2 Mixed hyperlipidemia; E11.9 Type 2 diabetes mellitus without complications; I10 Essential (primary) hypertension
CPT/HCPCS: 74177; 76705; 80048; 80076; 82150; 83690; 85025; 85610; 85730; 87507; 93041; 96374; 96375; 96376; 99285; J1885; J2405; Q9963; Q9967

== ENCOUNTER 2018-12-25 08:50 | Emergency (ER) | payer OTHER ==
[~2018-12-25] VITALS: Ht 167.6 cm; Wt 90.9 kg
[2018-12-25] MEDS ORDERED: NS 1,000 ML IV ONE (10:15)
[2018-12-25] MEDS ORDERED: KETOROLAC 30 MG/ML VIAL (J1885) IV ONE (10:30)
[2018-12-25 10:43] LABS: BASO # 0.1 10^3/uL (0.0-0.2); BASO % 0.8 % (0.0-1.0); EOS # 0.2 10^3/uL (0.0-0.50); EOS % 2.7 % (0.0-3.0); HEMATOCRIT 39.1 % (36.0-47.0); HEMOGLOBIN 12.7 g/dl (12.0-15.5); LYMPH # 1.8 10^3/uL (1.5-4.5); LYMPH % 19.8 % (24.0-44.0); MEAN CORPUSCULAR HEMOGLOBIN 26.8 pg (27.0-33.0); MEAN CORPUSCULAR HGB CONC 32.5 g/dl (32.0-36.5); MEAN CORPUSCULAR VOLUME 82.7 fl (80.0-96.0); MONO # 0.7 10^3/uL (0.0-0.8); MONO % 7.6 % (0.0-5.0); NEUTROPHILS # 6.1 10^3/uL (1.8-7.7); NEUTROPHILS % 68.6 % (36.0-66.0); PLATELET COUNT, AUTOMATED 351 10^3/uL (150-450); RED BLOOD COUNT 4.73 10^6/uL (4.00-5.40); WHITE BLOOD COUNT 8.8 10^3/uL (4.0-10.0)
[2018-12-25 11:03] LABS: ALBUMIN 3.4 GM/DL (3.2-5.2); ALT/SGPT 24 U/L (12-78); BILIRUBIN,DIRECT < 0.1 MG/DL (0.0-0.2); BILIRUBIN,TOTAL 0.3 MG/DL (0.2-1.0); BLOOD UREA NITROGEN 16 MG/DL (7-18); CALCIUM LEVEL 9.1 MG/DL (8.5-10.1); CARBON DIOXIDE LEVEL 21 MEQ/L (21-32); CHLORIDE LEVEL 110 MEQ/L (98-107); CREATININE FOR GFR 0.92 MG/DL (0.55-1.30); GLOMERULAR FILTRATION RATE > 60.0 (>51); GLUCOSE, FASTING 185 MG/DL (70-100); LIPASE 72 U/L (73-393); POTASSIUM SERUM 4.5 MEQ/L (3.5-5.1); SODIUM LEVEL 140 MEQ/L (136-145); TOTAL PROTEIN 7.1 GM/DL (6.4-8.2)
[2018-12-25] MEDS ORDERED: LOMO2.5T PO (12:54)
[2018-12-25 13:08] VITALS: BP 146/70
== END 2018-12-25 13:16 | disposition home or self-care (01) ==
LOC: M ED 08:50
DX: R10.84 Generalized abdominal pain (principal); R19.7 Diarrhea, unspecified; R51 Headache; E11.9 Type 2 diabetes mellitus without complications; I10 Essential (primary) hypertension; E78.5 Hyperlipidemia, unspecified; K21.9 Gastro-esophageal reflux disease without esophagitis; G62.9 Polyneuropathy, unspecified; Z79.899 Other long term (current) drug therapy; Z88.0 Allergy status to penicillin; Z88.8 Allergy status to other drugs, medicaments and biological substances
CPT/HCPCS: 80048; 80076; 81001; 83690; 85025; 87088; 87186; 96361; 96374; 99284; J1885

== ENCOUNTER → 2018-12-29 | Outpatient (REF) | payer OTHER ==
[~2018-12-29] MED LIST changes: +LOMO2.5T PO
[2018-12-29 15:33] LABS: BASO % 0.4 % (0.0-1.0); EOS # 0.2 10^3/uL (0.0-0.50); EOS % 2.5 % (0.0-3.0); HEMATOCRIT 36.8 % (36.0-47.0); HEMOGLOBIN 12.3 g/dl (12.0-15.5); LYMPH # 2.2 10^3/uL (1.5-4.5); LYMPH % 25.8 % (24.0-44.0); MEAN CORPUSCULAR HGB CONC 33.4 g/dl (32.0-36.5); MEAN CORPUSCULAR VOLUME 80.7 fl (80.0-96.0); MONO # 0.8 10^3/uL (0.0-0.8); MONO % 9.3 % (0.0-5.0); NEUTROPHILS # 5.3 10^3/uL (1.8-7.7); NEUTROPHILS % 61.5 % (36.0-66.0); PLATELET COUNT, AUTOMATED 372 10^3/uL (150-450); RED BLOOD COUNT 4.56 10^6/uL (4.00-5.40); WHITE BLOOD COUNT 8.5 10^3/uL (4.0-10.0)
[2018-12-29 15:59] LABS: ALBUMIN 3.4 GM/DL (3.2-5.2); ALT/SGPT 21 U/L (12-78); BILIRUBIN,TOTAL 0.3 MG/DL (0.2-1.0); BLOOD UREA NITROGEN 13 MG/DL (7-18); CALCIUM LEVEL 9.4 MG/DL (8.5-10.1); CARBON DIOXIDE LEVEL 21 MEQ/L (21-32); CHLORIDE LEVEL 111 MEQ/L (98-107); CREATININE FOR GFR 0.91 MG/DL (0.55-1.30); GLOMERULAR FILTRATION RATE > 60.0 (>51); GLUCOSE, FASTING 119 MG/DL (70-100); POTASSIUM SERUM 3.9 MEQ/L (3.5-5.1); SODIUM LEVEL 142 MEQ/L (136-145); TOTAL PROTEIN 7.2 GM/DL (6.4-8.2)
== END ==
LOC: M SFHCPLAZ 14:06
PROVIDERS: ATTEND Family Medicine
DX: Z01.818 Encounter for other preprocedural examination (principal)

== ENCOUNTER → 2019-01-02 | Outpatient (REF) | payer OTHER ==
[2019-01-02 12:09] LABS: APPEARANCE, URINE CLEAR (CLEAR); BACTERIA, URINE AUTO NEGATIVE (NEGATIVE); BILIRUBIN, URINE AUTO 2+ (NEGATIVE); BLOOD, URINE BLOOD NEGATIVE (NEGATIVE); COLOR, URINE YELLOW (YELLOW); GLUCOSE, URINE (UA) AUTO NEGATIVE (NEGATIVE); KETONE, URINE AUTO TRACE mg/dL (NEGATIVE); LEUKOCYTE ESTERASE, URINE AUTO NEGATIVE (NEGATIVE); MUCUS, URINE SMALL (NEGATIVE); NITRITE, URINE AUTO NEGATIVE (NEGATIVE); PROTEIN, URINE AUTO NEGATIVE (NEGATIVE); RBC, URINE AUTO 2 /HPF (0-3); SPECIFIC GRAVITY URINE AUTO 1.042 (1.002-1.035); SQUAMOUS EPITHELIAL CELL UR AU 0 /HPF (0-6); UROBILINOGEN, URINE AUTO 0.2 mg/dL (0.0-2.0); WBC, URINE AUTO 1 /HPF (0-3)
== END ==
LOC: M SFHCPLAZ 08:39
PROVIDERS: ATTEND Nurse Practitioner Family
DX: R19.7 Diarrhea, unspecified (principal); R39.89 Other symptoms and signs involving the genitourinary system

== ENCOUNTER → 2019-01-03 | Outpatient (REF) | payer OTHER | LOC: M SFHCPLAZ 10:35 | PROVIDERS: ATTEND Nurse Practitioner Family | DX: R39.89 Other symptoms and signs involving the genitourinary system (principal); R19.7 Diarrhea, unspecified ==

== ENCOUNTER 2019-02-23 06:03 | Day surgery (SDC) | payer OTHER ==
[~2019-02-23] VITALS: Ht 167.6 cm; Wt 90.3 kg
[~2019-02-23 06:03] MED LIST changes: -BISO5TAB5; +BISO5TAB9; +GABA-843 PO; +LOPE2TAB12 PO; +LR 1,000 ML IV ONE; +PEPC1TAB5 PO
[2019-02-23] MEDS ORDERED: PROPOFOL 200 MG/20 ML VIAL As Ordered ONE ×3 (06:47→08:16)
[2019-02-23] MEDS ORDERED: ROCURONIUM BROMIDE 50 MG/5 ML VIAL As Ordered ONE (06:48)
[2019-02-23] MEDS ORDERED: LIDOCAINE 2% INJ 100 MG/5 ML SDV (FOR ANES.) As Ordered ONE (06:48)
[2019-02-23] MEDS ORDERED: BUPIVACAINE/EPIN 0.25% 30 ML VIAL As Ordered ONE (06:49)
[2019-02-23] MEDS ORDERED: KETOROLAC 60 MG/2 ML VIAL (J1885) As Ordered ONE (06:49)
[2019-02-23] MEDS ORDERED: ONDANSETRON 4MG/2ML VIAL (J2405) As Ordered ONE (06:49)
[2019-02-23] MEDS ORDERED: dexameTHASONE 4 MG/ML 1ML VIAL (J1100) As Ordered ONE (06:49)
[2019-02-23] MEDS ORDERED: fentaNYL 250 MCG/5 ML INJECTION (J3010) As Ordered ONE (06:52)
[2019-02-23] MEDS ORDERED: MIDAZOLAM INJ 2 MG/2 ML VIAL (J2250) As Ordered ONE (06:53)
[2019-02-23] MEDS ORDERED: KETAMINE HCL 200 MG/20 ML VIAL As Ordered ONE (07:19)
[2019-02-23] MEDS ORDERED: ePHEDrine SULFATE 25 MG/5 ML(5MG/ML) SYRINGE As Ordered ONE (07:58)
[2019-02-23] MEDS ORDERED: SUGAMMADEX SODIUM 500 MG/5 ML VIAL (BRIDION) As Ordered ONE (08:02)
[2019-02-23] MEDS ORDERED: ONDANSETRON 4MG/2ML VIAL (J2405) IV PRN (09:45)
[2019-02-23] MEDS ORDERED: fentaNYL 100 MCG/2 ML INJECTION (J3010) IV PRN (09:45)
[2019-02-23] MEDS ORDERED: PERCOCET 5MG/325MG TAB PO PRN (09:45)
[2019-02-23] MEDS ORDERED: NORCO, ANEXSIA 5/325MG TABLET (HYDROcodone/ACETAMINOPHEN) PO PRN (09:45)
[2019-02-23] MEDS ORDERED: LR 1,000 ML IV SCH (09:45)
[2019-02-23] MEDS ORDERED: METOCLOPRAMIDE INJ 10MG/2ML VIAL (J2765) IV ONE (10:45)
[2019-02-23] MEDS ORDERED: PERCOCET 5MG/325MG TAB As Ordered ONE (11:13)
[2019-02-23 11:53] VITALS: BP 131/66
--- NOTE | 2019-02-26 12:33 | RO ---
DATE OF PROCEDURE: 02/23/2019 PREOPERATIVE DIAGNOSIS: Symptomatic cholelithiasis. POSTOPERATIVE DIAGNOSIS: Symptomatic cholelithiasis. PROCEDURE: Laparoscopic cholecystectomy. SURGEON: Dr. Acosta SALES STRATEGY MANAGER: None. ANESTHESIA: General. ESTIMATED BLOOD LOSS: 5 mL COMPLICATIONS: None. INDICATION: The patient 58-year-old female with symptomatic cholelithiasis. RECOMMENDATIONS: Proceed laparoscopic possible open cholecystectomy. Risks and benefits of the procedure not limited to, but including bleeding, infection, hernia formation, damage to surrounding structures, need for further surgery were discussed in detail with the patient, informed consent was obtained, and the procedure planned. PROCEDURE: The patient back to operating room 6. After sufficient sedation, the abdomen was sterilely prepped and draped. Next, time out was done to confirm proper patient and proper procedure. Following that, an 11 mm incision made in the left upper quadrant, Veress needle was inserted and the abdomen was insufflated to 15 mmHg. Next, a 5 mm supraumbilical midline incision was made and a 5 mm Optiview port was used to gain access to the abdomen. Once the abdomen was entered, two more 5 mm ports were placed in the right upper quadrant and the Veress needle was removed and replaced with an 11 mm port. The fundus of the gallbladder was elevated up towards the right shoulder. Omental adhesions were gently taken down with blunt dissection. Cystic duct and cystic artery were both easily identified, they are both doubly clipped and cut. The gallbladder was then dissected free from the gallbladder fossa using electrocautery. Gallbladder was then placed inside a 10 mm EndoCatch bag and removed from the abdomen. The abdomen was then desufflated. Skin incisions were closed with 4-0 Vicryl subcuticular sutures. The abdomen was cleaned and dried. Steri-Strips, 4x4 and tape were applied, thus ending procedure.
== END 2019-02-23 13:08 | disposition home or self-care (01) ==
LOC: M SDC 06:03
PROVIDERS: ATTEND Surgery
DX: K81.1 Chronic cholecystitis (principal); E11.9 Type 2 diabetes mellitus without complications; I10 Essential (primary) hypertension; E78.5 Hyperlipidemia, unspecified; K21.9 Gastro-esophageal reflux disease without esophagitis; Z79.4 Long term (current) use of insulin; Z79.84 Long term (current) use of oral hypoglycemic drugs; Z79.82 Long term (current) use of aspirin; F32.9 Major depressive disorder, single episode, unspecified; Z79.02 Long term (current) use of antithrombotics/antiplatelets; Z86.718 Personal history of other venous thrombosis and embolism; Z88.0 Allergy status to penicillin; Z88.8 Allergy status to other drugs, medicaments and biological substances
CPT/HCPCS: 47562; 88304; J1100; J1885; J2250; J2405; J2765; J3010

== ENCOUNTER → 2019-03-03 | Outpatient (CLI) | payer OTHER ==
[~2019-03-03] MED LIST changes: -LR 1,000 ML IV ONE
[2019-03-03 18:48] LABS: ALBUMIN 3.4 GM/DL (3.2-5.2); ALT/SGPT 29 U/L (12-78); BILIRUBIN,TOTAL 0.5 MG/DL (0.2-1.0); BLOOD UREA NITROGEN 17 MG/DL (7-18); CALCIUM LEVEL 9.3 MG/DL (8.5-10.1); CARBON DIOXIDE LEVEL 25 MEQ/L (21-32); CHLORIDE LEVEL 105 MEQ/L (98-107); CREATININE FOR GFR 0.88 MG/DL (0.55-1.30); GLOMERULAR FILTRATION RATE > 60.0 (>51); GLUCOSE, FASTING 103 MG/DL (70-100); POTASSIUM SERUM 4.9 MEQ/L (3.5-5.1); SODIUM LEVEL 138 MEQ/L (136-145); TOTAL PROTEIN 6.7 GM/DL (6.4-8.2)
[2019-03-03 18:58] LABS: HEMOGLOBIN A1c 6.9 %
[2019-03-03 19:12] LABS: MALB URINE SIEMENS 49.4 MG/L; MAU/CREAT RATIO 26.5 MCG/MG (0.0-30.0)
== END ==
LOC: M WUC 09:14
PROVIDERS: ATTEND Nurse Practitioner Family
DX: E11.29 Type 2 diabetes mellitus with other diabetic kidney complication (principal)

== ENCOUNTER 2019-03-28 06:53 | Day surgery (SDC) | payer OTHER ==
[~2019-03-28] VITALS: Ht 167.6 cm; Wt 88.9 kg
[~2019-03-28 06:53] MED LIST changes: +GAVISUS PO
[2019-03-28] MEDS ORDERED: fentaNYL 100 MCG/2 ML INJECTION (J3010) As Ordered ONE (07:04)
[2019-03-28] MEDS ORDERED: PROPOFOL 500 MG/50 ML VIAL As Ordered ONE (07:05)
[2019-03-28] MEDS ORDERED: LIDOCAINE 2% INJ 100 MG/5 ML SDV (FOR ANES.) As Ordered ONE (07:06)
[2019-03-28] MEDS ORDERED: NS 1,000 ML IV ONE (07:30)
[2019-03-28] MEDS ORDERED: ONDANSETRON 4MG/2ML VIAL (J2405) As Ordered ONE (07:36)
--- NOTE | 2019-03-28 08:08 | ROOR ---
Patient Name: Josh Ramachandran Procedure Date: 03/28/2019 7:36 AM Date of : 1960 Age: 59 Room: [facility] Gender: Female Note Status: Finalized Procedure: Upper GI endoscopy Indications: Follow-up of gastro-esophageal reflux disease Providers: DO Hortencia Mckeon MD: Ping Bailey NP Requesting Provider: Medicines: Propofol per Anesthesia Complications: No immediate complications. Procedure: Pre-Anesthesia Assessment: - Prior to the procedure, a History and Physical was performed, and patient medications and allergies were reviewed. The patient is competent. The risks and benefits of the procedure and the sedation options and risks were discussed with the patient. All questions were answered and informed consent was obtained. Patient identification and proposed procedure were verified by the physician, the nurse, the anesthesiologist and the sterilisation technician in the endoscopy suite. Mental Status Examination: alert and oriented. Airway Examination: normal oropharyngeal airway and neck mobility. Respiratory Examination: clear to auscultation. CV Examination: normal. Prophylactic Antibiotics: The patient does not require prophylactic antibiotics. Prior Anticoagulants: The patient has taken no previous anticoagulant or antiplatelet agents. ASA Grade Assessment: IV - A patient with severe systemic disease that is a constant threat to life. After reviewing the risks and benefits, the patient was deemed in satisfactory condition to undergo the procedure. The anesthesia plan was to use monitored anesthesia care (MAC). Immediately prior to administration of medications, the patient was re-assessed for adequacy to receive sedatives. The heart rate, respiratory rate, oxygen saturations, blood pressure, adequacy of pulmonary ventilation, and response to care were monitored throughout the procedure. The physical status of the patient was re-assessed after the procedure. The Endoscope was introduced through the mouth, and advanced to the third part of duodenum. The upper GI endoscopy was accomplished without difficulty. The patient tolerated the procedure well. Findings: Diffuse moderate inflammation characterized by congestion (edema), erosions, erythema and linear erosions was found in the prepyloric region of the stomach. Biopsies were taken with a cold forceps for Helicobacter pylori testing. Estimated blood loss was minimal. The exam was otherwise without abnormality. Impression: - Gastritis. Biopsied. - The examination was otherwise normal. Recommendation: - Patient has a contact number available for emergencies. The signs and symptoms of potential delayed complications were discussed with the patient. Return to normal activities tomorrow. Written discharge instructions were provided to the patient. - Await pathology results. - Return to nurse practitioner in 1 week. Major Acosta DO 03/28/2019 8:07:33 AM Electronically signed by Major Acosta DO Number of Addenda: 0 Note Initiated On: 03/28/2019 7:36 AM Estimated Blood Loss: Estimated blood loss was minimal.
--- NOTE | 2019-03-28 08:16 | ROOR ---
Patient Name: Josh Ramachandran Procedure Date: 03/28/2019 7:36 AM Date of : 1960 Age: 59 Room: [facility] Gender: Female Note Status: Finalized Procedure: Colonoscopy Indications: Clinically significant diarrhea of unexplained origin Providers: DO Hortencia Mckeon MD: Ping Bailey NP Requesting Provider: Medicines: Propofol per Anesthesia Complications: No immediate complications. Procedure: Pre-Anesthesia Assessment: - Prior to the procedure, a History and Physical was performed, and patient medications and allergies were reviewed. The patient is competent. The risks and benefits of the procedure and the sedation options and risks were discussed with the patient. All questions were answered and informed consent was obtained. Patient identification and proposed procedure were verified by the physician, the nurse, the anesthesiologist and the materials engineering technician in the endoscopy suite. Mental Status Examination: alert and oriented. Airway Examination: normal oropharyngeal airway and neck mobility. Respiratory Examination: clear to auscultation. CV Examination: normal. Prophylactic Antibiotics: The patient does not require prophylactic antibiotics. Prior Anticoagulants: The patient has taken no previous anticoagulant or antiplatelet agents. ASA Grade Assessment: IV - A patient with severe systemic disease that is a constant threat to life. After reviewing the risks and benefits, the patient was deemed in satisfactory condition to undergo the procedure. The anesthesia plan was to use monitored anesthesia care (MAC). Immediately prior to administration of medications, the patient was re-assessed for adequacy to receive sedatives. The heart rate, respiratory rate, oxygen saturations, blood pressure, adequacy of pulmonary ventilation, and response to care were monitored throughout the procedure. The physical status of the patient was re-assessed after the procedure. The Colonoscope was introduced through the anus and advanced to the cecum, identified by appendiceal orifice and ileocecal valve. The colonoscopy was performed without difficulty. The patient tolerated the procedure well. Findings: Non-bleeding internal hemorrhoids were found during retroflexion. The hemorrhoids were small and Grade II (internal hemorrhoids that prolapse but reduce spontaneously). The exam was otherwise without abnormality on direct and retroflexion views. Impression: - Non-bleeding internal hemorrhoids. - The examination was otherwise normal on direct and retroflexion views. - No specimens collected. Recommendation: - Patient has a contact number available for emergencies. The signs and symptoms of potential delayed complications were discussed with the patient. Return to normal activities tomorrow. Written discharge instructions were provided to the patient. - Return to my office PRN. Major Acosta DO 03/28/2019 8:16:44 AM Electronically signed by Major Acosta DO Number of Addenda: 0 Note Initiated On: 03/28/2019 7:36 AM Estimated Blood Loss: Estimated blood loss: none.
[2019-03-28 08:29] VITALS: BP 137/80
== END 2019-03-28 08:31 | disposition home or self-care (01) ==
LOC: M OPP 06:53
PROVIDERS: ATTEND Surgery
DX: K64.1 Second degree hemorrhoids (principal); R19.7 Diarrhea, unspecified; K29.70 Gastritis, unspecified, without bleeding; K21.9 Gastro-esophageal reflux disease without esophagitis; N18.2 Chronic kidney disease, stage 2 (mild); I12.9 Hypertensive chronic kidney disease with stage 1 through stage 4 chronic kidney disease, or unspecified chronic kidney disease; E78.5 Hyperlipidemia, unspecified; Z79.4 Long term (current) use of insulin; Z79.82 Long term (current) use of aspirin; Z79.899 Other long term (current) drug therapy; Z88.1 Allergy status to other antibiotic agents; Z88.8 Allergy status to other drugs, medicaments and biological substances; Z90.49 Acquired absence of other specified parts of digestive tract
CPT/HCPCS: 43239; 45378; 88305; J2405; J3010

== ENCOUNTER → 2019-04-12 | Outpatient (RCR) | payer OTHER | LOC: M PT 03-14 12:19 | PROVIDERS: ATTEND Nurse Practitioner Family | DX: M47.27 Other spondylosis with radiculopathy, lumbosacral region (principal) ==

== ENCOUNTER 2019-05-08 10:22 | Outpatient (RCR) | payer OTHER | END 2019-05-12 | LOC: M PT 10:22 | PROVIDERS: ATTEND Nurse Practitioner Family | DX: Z47.89 Encounter for other orthopedic aftercare (principal) ==

== ENCOUNTER → 2019-05-21 | Outpatient (CLI) | payer OTHER ==
[~2019-05-21] MED LIST changes: -SULF1TAB72 PO; +SULF400T14 PO
[2019-05-21 13:05] LABS: ALBUMIN 3.7 GM/DL (3.2-5.2); ALT/SGPT 29 U/L (12-78); BILIRUBIN,TOTAL 0.4 MG/DL (0.2-1.0); BLOOD UREA NITROGEN 29 MG/DL (7-18); CALCIUM LEVEL 9.4 MG/DL (8.5-10.1); CARBON DIOXIDE LEVEL 25 MEQ/L (21-32); CHLORIDE LEVEL 107 MEQ/L (98-107); CREATININE FOR GFR 0.99 MG/DL (0.55-1.30); GLOMERULAR FILTRATION RATE > 60.0 (>51); GLUCOSE, FASTING 141 MG/DL (70-100); POTASSIUM SERUM 4.6 MEQ/L (3.5-5.1); SODIUM LEVEL 140 MEQ/L (136-145); TOTAL PROTEIN 7.4 GM/DL (6.4-8.2)
[2019-05-21 13:17] LABS: HEMOGLOBIN A1c 7.8 %
[2019-05-21 13:33] LABS: MAU/CREAT RATIO 73.3 MCG/MG (0.0-30.0)
== END ==
LOC: M WUC 08:50
PROVIDERS: ATTEND Nurse Practitioner Family
DX: E11.29 Type 2 diabetes mellitus with other diabetic kidney complication (principal)

== ENCOUNTER 2019-05-29 11:00 | Outpatient (RCR) | payer OTHER | END 2019-06-12 | LOC: M PT 11:00 | PROVIDERS: ATTEND Nurse Practitioner Family | DX: G89.29 Other chronic pain (principal); M54.9 Dorsalgia, unspecified; Z51.89 Encounter for other specified aftercare ==

== ENCOUNTER 2019-06-28 14:25 | Emergency (ER) | payer OTHER ==
[~2019-06-28] VITALS: Ht 167.6 cm; Wt 90.9 kg
[~2019-06-28 14:25] MED LIST changes: +BISO5TAB14; -BISO5TAB9
[2019-06-28] MEDS ORDERED: METH1TAB40 (14:34)
[2019-06-28] MEDS ORDERED: PERCOCET 5MG/325MG TAB PO ONE (15:30)
--- NOTE | 2019-06-28 15:40 | REP ---
INDICATION: Fall PROCEDURE: CT lumbar spine without contrast COMPARISON STUDIES: No prior similar studies FINDINGS: No acute fracture or malalignment. Degenerative disc disease is more progressed at the L4-5 level with disc space narrowing and mild vacuum disc phenomena. There is no definite canal stenosis or definite limiting osseous foraminal stenosis. Soft tissues appear unremarkable. Degenerative changes are seen with endplate osteophytes encroaching on the neural foramen bilaterally however without definite limiting foraminal stenosis. IMPRESSION: 1. No acute findings. 2. Degenerative changes are seen with endplate osteophytes encroaching on the neural foramen bilaterally however without definite limiting foraminal stenosis. Electronically Signed by Gera Bhtati MD 06/28/2019 03:31 P
--- NOTE | 2019-06-28 15:45 | REP ---
Pelvis right hip: Three views. History: Injury in a fall. Findings: AP view of the pelvis and AP and frog-leg views of the right hip demonstrate smooth rounded femoral head and intact hip joint space. No fracture is seen. There is trochanteric spurring. Vascular calcification is noted. Impression: No fracture seen. Electronically Signed by Alec Hargrove MD 06/28/2019 03:36 P
[2019-06-28] MEDS ORDERED: PERC5TAB12 PO (16:15)
[2019-06-28] MEDS ORDERED: GABA-845 PO (16:15)
[2019-06-28 16:23] VITALS: BP 126/93
== END 2019-06-28 16:30 | disposition home or self-care (01) ==
LOC: M ED 14:25
DX: M51.36 Other intervertebral disc degeneration, lumbar region (principal); E11.9 Type 2 diabetes mellitus without complications; I10 Essential (primary) hypertension; E78.5 Hyperlipidemia, unspecified; G62.9 Polyneuropathy, unspecified; G93.89 Other specified disorders of brain; K21.9 Gastro-esophageal reflux disease without esophagitis; F33.9 Major depressive disorder, recurrent, unspecified; Z79.899 Other long term (current) drug therapy; Z79.4 Long term (current) use of insulin; Z79.82 Long term (current) use of aspirin; Z79.01 Long term (current) use of anticoagulants

== ENCOUNTER → 2019-07-05 | Outpatient (REF) | payer OTHER ==
[~2019-07-05] MED LIST changes: +GABA-845 PO; +METH1TAB40; +PERC5TAB12 PO
[2019-07-05 12:28] LABS: BASO # 0.1 10^3/uL (0.0-0.2); BASO % 0.7 % (0.0-1.0); EOS # 0.6 10^3/uL (0.0-0.5); EOS % 6.3 % (0.0-3.0); HEMATOCRIT 36.9 % (36.0-47.0); HEMOGLOBIN 11.6 g/dl (12.0-15.5); LYMPH # 1.6 10^3/uL (1.5-5.0); LYMPH % 15.7 % (24.0-44.0); MEAN CORPUSCULAR HEMOGLOBIN 26.7 pg (27.0-33.0); MEAN CORPUSCULAR HGB CONC 31.4 g/dl (32.0-36.5); MONO # 0.8 10^3/uL (0.0-0.8); MONO % 7.9 % (0.0-5.0); NEUTROPHILS % 68.5 % (36.0-66.0); PLATELET COUNT, AUTOMATED 287 10^3/uL (150-450); RED BLOOD COUNT 4.34 10^6/uL (4.00-5.40); WHITE BLOOD COUNT 10.2 10^3/uL (4.0-10.0)
[2019-07-05 12:33] LABS: ALBUMIN 3.2 GM/DL (3.2-5.2); ALT/SGPT 29 U/L (12-78); BILIRUBIN,TOTAL 0.3 MG/DL (0.2-1.0); BLOOD UREA NITROGEN 24 MG/DL (7-18); CALCIUM LEVEL 8.5 MG/DL (8.5-10.1); CARBON DIOXIDE LEVEL 22 MEQ/L (21-32); CHLORIDE LEVEL 107 MEQ/L (98-107); CREATININE FOR GFR 0.88 MG/DL (0.55-1.30); GLOMERULAR FILTRATION RATE > 60.0 (>51); GLUCOSE, FASTING 292 MG/DL (70-100); POTASSIUM SERUM 4.9 MEQ/L (3.5-5.1); SODIUM LEVEL 139 MEQ/L (136-145); TOTAL PROTEIN 6.5 GM/DL (6.4-8.2)
[2019-07-05 14:07] LABS: ERYTHROCYTE SEDIMENTATION RATE 52 mm/hr (0-30)
[2019-07-06 11:25] LABS: HEPATITIS B SURFACE ANTIGEN NEGATIVE (NEGATIVE)
[2019-07-06 11:54] LABS: HEPATITIS C VIRUS ABY INDEX < 0.0 INDEX (<0.8)
== END ==
LOC: M SFHCRHEU 09:04
PROVIDERS: ATTEND Internal Medicine
DX: M05.79 Rheumatoid arthritis with rheumatoid factor of multiple sites without organ or systems involvement (principal)

== ENCOUNTER → 2019-07-11 | Outpatient (CLI) | payer OTHER ==
[2019-07-11 18:32] LABS: BLOOD UREA NITROGEN 19 MG/DL (7-18); CREATININE FOR GFR 0.81 MG/DL (0.55-1.30); GLOMERULAR FILTRATION RATE > 60.0 (>51)
== END ==
LOC: M WUC 11:39
PROVIDERS: ATTEND Student in an Organized Health Care Education/Training Program
DX: I65.23 Occlusion and stenosis of bilateral carotid arteries (principal)

== ENCOUNTER → 2019-07-11 | Outpatient (REF) | payer OTHER ==
[2019-07-11 18:13] LABS: APPEARANCE, URINE CLEAR (CLEAR); BACTERIA, URINE AUTO NEGATIVE (NEGATIVE); BILIRUBIN, URINE AUTO NEGATIVE (NEGATIVE); BLOOD, URINE BLOOD NEGATIVE (NEGATIVE); COLOR, URINE YELLOW (YELLOW); GLUCOSE, URINE (UA) AUTO NEGATIVE (NEGATIVE); KETONE, URINE AUTO NEGATIVE (NEGATIVE); LEUKOCYTE ESTERASE, URINE AUTO NEGATIVE (NEGATIVE); NITRITE, URINE AUTO NEGATIVE (NEGATIVE); PROTEIN, URINE AUTO NEGATIVE (NEGATIVE); RBC, URINE AUTO 0 /HPF (0-3); SPECIFIC GRAVITY URINE AUTO 1.018 (1.002-1.035); SQUAMOUS EPITHELIAL CELL UR AU 0 /HPF (0-6); UROBILINOGEN, URINE AUTO 0.2 mg/dL (0.0-2.0); WBC, URINE AUTO 0 /HPF (0-3)
== END ==
LOC: M LAB REF 16:57
PROVIDERS: ATTEND Obstetrics & Gynecology
DX: N39.41 Urge incontinence (principal)

== ENCOUNTER 2019-07-26 09:00 | Outpatient (RCR) | payer OTHER | END 2019-08-11 | LOC: M PT 09:00 | PROVIDERS: ATTEND Nurse Practitioner Family | DX: M54.5 Low back pain (principal); N39.3 Stress incontinence (female) (male) ==

== ENCOUNTER → 2019-08-21 | Outpatient (CLI) | payer OTHER ==
[2019-08-21 12:47] LABS: BASO % 0.5 % (0.0-1.0); EOS # 0.2 10^3/uL (0.0-0.5); EOS % 2.6 % (0.0-3.0); HEMATOCRIT 36.5 % (36.0-47.0); HEMOGLOBIN 12.1 g/dl (12.0-15.5); LYMPH # 1.5 10^3/uL (1.5-5.0); MEAN CORPUSCULAR HEMOGLOBIN 27.9 pg (27.0-33.0); MEAN CORPUSCULAR HGB CONC 33.2 g/dl (32.0-36.5); MEAN CORPUSCULAR VOLUME 84.1 fl (80.0-96.0); MONO # 0.7 10^3/uL (0.0-0.8); MONO % 7.7 % (0.0-5.0); NEUTROPHILS # 5.9 10^3/uL (1.5-8.5); NEUTROPHILS % 70.6 % (36.0-66.0); PLATELET COUNT, AUTOMATED 304 10^3/uL (150-450); RED BLOOD COUNT 4.34 10^6/uL (4.00-5.40); WHITE BLOOD COUNT 8.4 10^3/uL (4.0-10.0)
[2019-08-21 13:14] LABS: ERYTHROCYTE SEDIMENTATION RATE 54 mm/hr (0-30)
[2019-08-21 13:27] LABS: ALBUMIN 3.4 GM/DL (3.2-5.2); ALT/SGPT 32 U/L (12-78); BILIRUBIN,TOTAL 0.4 MG/DL (0.2-1.0); BLOOD UREA NITROGEN 24 MG/DL (7-18); C REACTIVE PROTEIN QUANTITATIV 1.17 MG/DL (0.00-0.30); CALCIUM LEVEL 9.2 MG/DL (8.5-10.1); CARBON DIOXIDE LEVEL 22 MEQ/L (21-32); CHLORIDE LEVEL 106 MEQ/L (98-107); CREATININE FOR GFR 0.86 MG/DL (0.55-1.30); GLOMERULAR FILTRATION RATE > 60.0 (>51); GLUCOSE, FASTING 246 MG/DL (70-100); POTASSIUM SERUM 5.2 MEQ/L (3.5-5.1); SODIUM LEVEL 136 MEQ/L (136-145); TOTAL PROTEIN 6.8 GM/DL (6.4-8.2)
== END ==
LOC: M WUC 09:06
PROVIDERS: ATTEND Internal Medicine
DX: M05.79 Rheumatoid arthritis with rheumatoid factor of multiple sites without organ or systems involvement (principal)

== ENCOUNTER → 2019-08-21 | Outpatient (CLI) | payer OTHER ==
[2019-08-21 13:28] LABS: ALBUMIN 3.4 GM/DL (3.2-5.2); ALT/SGPT 32 U/L (12-78); BILIRUBIN,TOTAL 0.3 MG/DL (0.2-1.0); BLOOD UREA NITROGEN 24 MG/DL (7-18); CALCIUM LEVEL 8.9 MG/DL (8.5-10.1); CARBON DIOXIDE LEVEL 22 MEQ/L (21-32); CHLORIDE LEVEL 107 MEQ/L (98-107); CHOLESTEROL LEVEL 140 MG/DL (<200); CHOLESTEROL RISK RATIO 3.333 (<5); CREATININE FOR GFR 0.87 MG/DL (0.55-1.30); GLOMERULAR FILTRATION RATE > 60.0 (>51); GLUCOSE, FASTING 255 MG/DL (70-100); HDL CHOLESTEROL 42 MG/DL (>40); LDL CHOLESTEROL 43 MG/DL (<100); MAGNESIUM LEVEL 1.8 MG/DL (1.8-2.4); NON-HDL-C 98 MG/DL; SODIUM LEVEL 136 MEQ/L (136-145); TOTAL 25(OH) VITAMIN D 49.2 NG/ML (30.0-100.0); TOTAL PROTEIN 6.8 GM/DL (6.4-8.2); TRIGLYCERIDES LEVEL 277 MG/DL (<150)
[2019-08-21 13:32] LABS: MAU/CREAT RATIO 83.4 MCG/MG (0.0-30.0)
[2019-08-21 20:00] LABS: HEMOGLOBIN A1c 8.7 %
== END ==
LOC: M WUC 09:02
PROVIDERS: ATTEND Nurse Practitioner Family
DX: E11.9 Type 2 diabetes mellitus without complications (principal); E78.2 Mixed hyperlipidemia; E55.9 Vitamin D deficiency, unspecified; K58.2 Mixed irritable bowel syndrome

== ENCOUNTER 2019-12-07 12:00 | Emergency (ER) | payer OTHER ==
[~2019-12-07] VITALS: Ht 167.6 cm; Wt 9.8 kg
[2019-12-07] MEDS ORDERED: NS 1,000 ML IV SCH (12:16)
[2019-12-07] MEDS ORDERED: ASPIRIN 81 MG CHEW TABLET PO ONE (12:30)
[2019-12-07 12:32] LABS: PROTHROMBIN TIME 12.9 SECONDS (11.8-14.0)
[2019-12-07 12:34] LABS: BASO # 0.1 10^3/uL (0.0-0.2); BASO % 0.5 % (0.0-1.0); D-DIMER QUANT 1059.94 ng/ml (<500); EOS # 0.5 10^3/uL (0.0-0.5); EOS % 3.6 % (0.0-3.0); HEMATOCRIT 43.5 % (36.0-47.0); HEMOGLOBIN 13.9 g/dl (12.0-15.5); LYMPH # 2.3 10^3/uL (1.5-5.0); LYMPH % 17.4 % (24.0-44.0); MEAN CORPUSCULAR HEMOGLOBIN 26.7 pg (27.0-33.0); MEAN CORPUSCULAR VOLUME 83.5 fl (80.0-96.0); MONO % 7.4 % (0.0-5.0); NEUTROPHILS # 9.3 10^3/uL (1.5-8.5); NEUTROPHILS % 70.6 % (36.0-66.0); PLATELET COUNT, AUTOMATED 407 10^3/uL (150-450); RED BLOOD COUNT 5.21 10^6/uL (4.00-5.40); WHITE BLOOD COUNT 13.2 10^3/uL (4.0-10.0)
--- NOTE | 2019-12-07 12:53 | REP ---
Portable chest: Single view. History: Chest pain Comparison study: July 20, 2016 Findings: Monitoring electrodes overlie the chest. Lungs are well inflated and clear. The pleural angles are sharp. Heart size is normal. No significant bony abnormality is seen. Pulmonary vasculature is not increased. Impression: Negative portable chest x-ray. Electronically Signed by Alec Hargrove MD 12/07/2019 12:44 P
[2019-12-07 13:44] LABS: VENOUS BASE EXCESS -8.4 (-2.0-2.0); VENOUS HCO3 17.6 MEQ/L (23.0-27.0); VENOUS O2 SATURATION 79.3 % (60.0-80.0); VENOUS PARTIAL PRESSURE CO2 38.4 mmHg (38.0-50.0); VENOUS PARTIAL PRESSURE O2 49.7 mmHg (30.0-50.0); VENOUS STANDARD HCO3 17.4 MEQ/L; VENOUS TOTAL CO2 18.8 MEQ/L (24.0-28.0)
[2019-12-07 14:26] LABS: ALBUMIN 3.4 GM/DL (3.2-5.2); ALT/SGPT 31 U/L (12-78); BILIRUBIN,DIRECT < 0.1 MG/DL (0.0-0.2); BILIRUBIN,TOTAL 0.4 MG/DL (0.2-1.0); BLOOD UREA NITROGEN 24 MG/DL (7-18); CARBON DIOXIDE LEVEL 19 MEQ/L (21-32); CHLORIDE LEVEL 110 MEQ/L (98-107); CREATININE FOR GFR 0.88 MG/DL (0.55-1.30); GLOMERULAR FILTRATION RATE > 60.0 (>51); GLUCOSE, FASTING 165 MG/DL (70-100); NT-PRO BNP 16 PG/ML (<125); POTASSIUM SERUM 4.9 MEQ/L (3.5-5.1); SODIUM LEVEL 138 MEQ/L (136-145); TOTAL PROTEIN 6.9 GM/DL (6.4-8.2)
[2019-12-07] MEDS ORDERED: ISOVUE-370 76% 100ML VIAL As Ordered ONE (14:28)
[2019-12-07 15:30] VITALS: BP 143/63
--- NOTE | 2019-12-07 20:42 | ECGEPIP ---
[facility] - ED Test Date: 2019-12-07 Pat Name: MISBAH QUACH Department: Room: - Gender: Female Stitcher Utility: ARMOND : 1960 Requested By: ANDREZ JHAVERI Order Number: [id number] Reading MD: Ventura Henning Measurements Intervals [place] Rate: 110 P: 36 SC: 159 QRS: -7 QRSD: 80 T: 37 QT: 289 QTc: 392 Interpretive Statements SINUS TACHYCARDIA MINIMAL VOLTAGE CRITERIA FOR LVH, CONSIDER NORMAL VARIANT POOR R WAVE PROGRESSION NSTTW ABNORMALITIES SIMILAR TO 12/11/18 Electronically Signed on 12-07-2019 20:41:35 EDT by Ventura Henning
--- NOTE | 2019-12-08 07:19 | REP ---
CT ANGIOGRAM OF THE CHEST: TECHNIQUE: Axial contrast-enhanced images from the thoracic inlet to the upper abdomen using 100 mL Isovue-370 intravenous contrast material with multiplanar reformations. The lungs demonstrate no evidence of infiltrate. There is some minor linear fibrotic scarring bilaterally. There is no CT evidence of pulmonary embolism. There is no thoracic aortic aneurysm or dissection. There is no mediastinal, hilar or chest wall lymphadenopathy. There is no pleural or pericardial effusion. The heart is normal in size. There is a small hiatal hernia. There may be mild thickening of the distal esophagus, possibly esophagitis. IMPRESSION: No CT evidence of pulmonary embolism. No evidence of acute infiltrate in either lung. Small hiatal hernia with possible thickening of the esophagus, raising possibility of esophagitis. Electronically Signed by Major Garsia MD 12/17/2019 11:25 A
== END 2019-12-07 15:40 | disposition home or self-care (01) ==
LOC: EDBD 12:00 → M ED 12:00
DX: R07.89 Other chest pain (principal); R06.02 Shortness of breath; E11.9 Type 2 diabetes mellitus without complications; I10 Essential (primary) hypertension; E78.5 Hyperlipidemia, unspecified; K21.9 Gastro-esophageal reflux disease without esophagitis; G62.9 Polyneuropathy, unspecified; Z79.899 Other long term (current) drug therapy; Z79.4 Long term (current) use of insulin; Z79.82 Long term (current) use of aspirin; Z79.01 Long term (current) use of anticoagulants; Z88.0 Allergy status to penicillin; Z88.8 Allergy status to other drugs, medicaments and biological substances
CPT/HCPCS: 36415; 71045; 71275; 80048; 80076; 82803; 83880; 85025; 85379; 85610; 93005; 93041; 94760; 96360; 96361; 99285; Q9967

== ENCOUNTER → 2019-12-07 | Outpatient (CLI) | payer OTHER ==
--- NOTE | 2019-12-07 11:03 | REPMRS ---
Patient History The patient states she had a clinical breast exam in November 2019. Family history of ovarian cancer at age 63 in mother, ovarian cancer at age 50 in maternal grandmother. 3D TOMOSYNTHESIS WAS PERFORMED. The [facility] lifetime risk for breast cancer is 8.6%. Volpara density B. Diagnostic Bilateral Mammo: December 07, 2019 - Exam #: [id number] Bilateral CC and MLO view(s) were taken. Technologist: Irene Davis, Technologist Prior study comparison: January 27, 2017, digital woman screen mammo performed at [facility]. October 08, 2014, digital woman screen mammo performed at [facility]. FINDINGS: There are scattered fibroglandular densities. There has been no change in the appearance of the mammogram from the prior studies. There is a mild amount of residual fibroglandular tissue which is fairly symmetric. There is no interval development of dominant mass, architectural distortion, or clustered microcalcification suggestive of malignancy. Assessment: BI-RADS/ACR category 1 mammogram. Negative Mammogram. Recommendation Routine screening mammogram in 1 year (for women over age 40). This mammogram was interpreted with the aid of an FDA-approved computer-aided dectection system. Electronically Signed By: Major Garsia MD 12/07/19 [id number]
== END ==
LOC: M WHC 09:58
PROVIDERS: ATTEND Nurse Practitioner Family
DX: N64.4 Mastodynia (principal)
CPT/HCPCS: 77066; G0279

== ENCOUNTER → 2019-12-31 | Outpatient (CLI) | payer OTHER ==
[~2019-12-31] MED LIST changes: +PANT40TA29 PO; -PANT40TA3 PO
[2019-12-31 13:28] LABS: HEMOGLOBIN A1c 7.6 %
[2019-12-31 13:32] LABS: ALBUMIN 3.5 GM/DL (3.2-5.2); ALT/SGPT 35 U/L (12-78); BILIRUBIN,TOTAL 0.3 MG/DL (0.2-1.0); BLOOD UREA NITROGEN 24 MG/DL (7-18); CALCIUM LEVEL 9.9 MG/DL (8.5-10.1); CARBON DIOXIDE LEVEL 23 MEQ/L (21-32); CHLORIDE LEVEL 108 MEQ/L (98-107); CREATININE FOR GFR 0.98 MG/DL (0.55-1.30); GLOMERULAR FILTRATION RATE > 60.0 (>51); GLUCOSE, FASTING 157 MG/DL (70-100); POTASSIUM SERUM 5.3 MEQ/L (3.5-5.1); SODIUM LEVEL 140 MEQ/L (136-145); TOTAL PROTEIN 7.1 GM/DL (6.4-8.2)
[2019-12-31 13:40] LABS: MALB URINE SIEMENS 30.3 MG/L; MAU/CREAT RATIO 29.7 MCG/MG (0.0-30.0)
== END ==
LOC: M WUC 08:41
PROVIDERS: ATTEND Nurse Practitioner Family
DX: E11.29 Type 2 diabetes mellitus with other diabetic kidney complication (principal)

== ENCOUNTER → 2020-04-30 | Outpatient (CLI) | payer OTHER ==
[2020-04-30 16:52] LABS: CALCIUM LEVEL 9.7 MG/DL (8.8-10.2); CREATININE FOR GFR 1.04 MG/DL (0.55-1.30); GLOMERULAR FILTRATION RATE 57.5 (>45); POTASSIUM SERUM 5.4 MEQ/L (3.5-5.1)
== END ==
LOC: M WUC 12:03
PROVIDERS: ATTEND Nurse Practitioner Family
DX: E87.5 Hyperkalemia (principal)

== ENCOUNTER → 2020-05-03 | Outpatient (CLI) | payer OTHER ==
[2020-05-04 07:26] LABS: BLOOD UREA NITROGEN 16 MG/DL (7-18); CALCIUM LEVEL 9.7 MG/DL (8.8-10.2); CARBON DIOXIDE LEVEL 24 MEQ/L (21-32); CHLORIDE LEVEL 105 MEQ/L (98-107); CREATININE FOR GFR 0.95 MG/DL (0.55-1.30); GLOMERULAR FILTRATION RATE > 60.0 (>45); GLUCOSE, FASTING 188 MG/DL (70-100); POTASSIUM SERUM 5.5 MEQ/L (3.5-5.1); SODIUM LEVEL 140 MEQ/L (136-145)
== END ==
LOC: M WUC 11:48
PROVIDERS: ATTEND Nurse Practitioner Family
DX: E87.5 Hyperkalemia (principal)

== ENCOUNTER → 2020-06-08 | Outpatient (CLI) | payer OTHER ==
[2020-06-08 17:46] LABS: ALBUMIN 3.8 GM/DL (3.2-5.2); BILIRUBIN,TOTAL 0.4 MG/DL (0.2-1.0); CREATININE FOR GFR 1.1 MG/DL (0.55-1.30); GLOMERULAR FILTRATION RATE 53.9 (>45); POTASSIUM SERUM 4.8 MEQ/L (3.5-5.1); TOTAL PROTEIN 7.6 GM/DL (6.4-8.2)
[2020-06-08 17:52] LABS: HEMOGLOBIN A1c 7.2 %
[2020-06-08 17:55] LABS: MAU/CREAT RATIO 113.9 MCG/MG (0.0-30.0)
[2020-06-09 10:03] LABS: TOTAL 25(OH) VITAMIN D 38.8 NG/ML (30.0-100.0)
== END ==
LOC: M WUC 13:18
PROVIDERS: ATTEND Nurse Practitioner Family
DX: E11.65 Type 2 diabetes mellitus with hyperglycemia (principal); I10 Essential (primary) hypertension; E55.9 Vitamin D deficiency, unspecified

== ENCOUNTER → 2020-06-30 | Outpatient (CLI) | payer OTHER ==
[~2020-06-30] MED LIST changes: +GABA-282 PO; -GABA-843 PO; +LISI10TA22; -LISI10TA4; -MAG400TA; +MAGN400T35; +METH-1164; +METH-1165 PO; -METH1TAB40; -METH750T2 PO
[2020-06-30 17:08] LABS: CALCIUM LEVEL 9.6 MG/DL (8.8-10.2); CREATININE FOR GFR 1.14 MG/DL (0.55-1.30); GLOMERULAR FILTRATION RATE 51.8 (>45); POTASSIUM SERUM 4.6 MEQ/L (3.5-5.1)
== END ==
LOC: M WUC 12:07
PROVIDERS: ATTEND Nurse Practitioner Family
DX: N18.31 Chronic kidney disease, stage 3a (principal)

== ENCOUNTER → 2020-09-22 | Outpatient (CLI) | payer OTHER ==
[2020-09-22 12:47] LABS: HEMOGLOBIN A1c 7.8 %
[2020-09-22 13:13] LABS: ALBUMIN 3.8 GM/DL (3.2-5.2); ALT/SGPT 44 U/L (12-78); BILIRUBIN,TOTAL 0.5 MG/DL (0.2-1.0); BLOOD UREA NITROGEN 21 MG/DL (7-18); CALCIUM LEVEL 9.7 MG/DL (8.8-10.2); CARBON DIOXIDE LEVEL 21 MEQ/L (21-32); CHLORIDE LEVEL 107 MEQ/L (98-107); CREATININE FOR GFR 0.88 MG/DL (0.55-1.30); FOLATE > 24.0 NG/ML; GLOMERULAR FILTRATION RATE > 60.0 (>45); GLUCOSE, FASTING 173 MG/DL (70-100); MAU/CREAT RATIO 66.6 MCG/MG (0.0-30.0); POTASSIUM SERUM 4.5 MEQ/L (3.5-5.1); SODIUM LEVEL 139 MEQ/L (136-145); TOTAL 25(OH) VITAMIN D 49.4 NG/ML (30.0-100.0); TOTAL PROTEIN 7.3 GM/DL (6.4-8.2); VITAMIN B12 LEVEL 896 PG/ML
== END ==
LOC: M WUC 09:44
PROVIDERS: ATTEND Nurse Practitioner Family
DX: E11.29 Type 2 diabetes mellitus with other diabetic kidney complication (principal); E55.9 Vitamin D deficiency, unspecified; G62.9 Polyneuropathy, unspecified

== ENCOUNTER → 2020-12-19 | Outpatient (CLI) | payer OTHER ==
[~2020-12-19] MED LIST changes: -CYMB60CA3 PO; +CYMB60CA4 PO; +GABA-283 PO; -GABA-845 PO; -OXYC1TAB15 PO; +OXYC7.5T3 PO
[2020-12-19 12:09] LABS: ALBUMIN 3.8 GM/DL (3.2-5.2); ALT/SGPT 47 U/L (12-78); BILIRUBIN,TOTAL 0.6 MG/DL (0.2-1.0); BLOOD UREA NITROGEN 16 MG/DL (7-18); CALCIUM LEVEL 10.2 MG/DL (8.8-10.2); CARBON DIOXIDE LEVEL 25 MEQ/L (21-32); CHLORIDE LEVEL 107 MEQ/L (98-107); CREATININE FOR GFR 0.94 MG/DL (0.55-1.30); GLOMERULAR FILTRATION RATE > 60.0 (>45); GLUCOSE, FASTING 185 MG/DL (70-100); SODIUM LEVEL 140 MEQ/L (136-145); TOTAL PROTEIN 7.1 GM/DL (6.4-8.2)
[2020-12-19 12:48] LABS: HEMOGLOBIN A1c 8.1 %
== END ==
LOC: M WUC 10:16
PROVIDERS: ATTEND Nurse Practitioner Family
DX: E11.29 Type 2 diabetes mellitus with other diabetic kidney complication (principal)

== ENCOUNTER → 2021-03-23 | Outpatient (CLI) | payer MEDICARE, MEDICAID ==
[~2021-03-23] MED LIST changes: +CYMB60CA3 PO; -CYMB60CA4 PO
[2021-03-23 14:31] LABS: ALBUMIN 3.7 GM/DL (3.2-5.2); ALT/SGPT 38 U/L (12-78); BILIRUBIN,TOTAL 0.7 MG/DL (0.2-1.0); BLOOD UREA NITROGEN 22 MG/DL (7-18); CALCIUM LEVEL 9.1 MG/DL (8.8-10.2); CARBON DIOXIDE LEVEL 24 MEQ/L (21-32); CHLORIDE LEVEL 110 MEQ/L (98-107); CHOLESTEROL LEVEL 142 MG/DL (<200); CHOLESTEROL RISK RATIO 3.086 (<5); CREATININE FOR GFR 1.02 MG/DL (0.55-1.30); FOLATE > 24.0 NG/ML; GLOMERULAR FILTRATION RATE 58.7 (>45); GLUCOSE, FASTING 139 MG/DL (70-100); HDL CHOLESTEROL 46 MG/DL (>40); LDL CHOLESTEROL 58 MG/DL (<100); MAGNESIUM LEVEL 1.9 MG/DL (1.8-2.4); NON-HDL-C 96 MG/DL; SODIUM LEVEL 141 MEQ/L (136-145); TOTAL 25(OH) VITAMIN D 66.2 NG/ML (30.0-100.0); TOTAL PROTEIN 7.6 GM/DL (6.4-8.2); TRIGLYCERIDES LEVEL 189 MG/DL (<150); VITAMIN B12 LEVEL 753 PG/ML
[2021-03-23 14:33] LABS: MAU/CREAT RATIO 55.7 MCG/MG (0.0-30.0)
[2021-03-23 15:43] LABS: HEMOGLOBIN A1c 7.2 %
== END ==
LOC: M WUC 09:04
PROVIDERS: ATTEND Nurse Practitioner Family
DX: E11.65 Type 2 diabetes mellitus with hyperglycemia (principal); K21.9 Gastro-esophageal reflux disease without esophagitis; E55.9 Vitamin D deficiency, unspecified; E78.5 Hyperlipidemia, unspecified; N18.31 Chronic kidney disease, stage 3a

== ENCOUNTER → 2021-06-30 | Outpatient (REF) | payer MEDICARE, OTHER ==
[~2021-06-30] MED LIST changes: -CYMB60CA3 PO; +CYMB60CA4 PO
== END ==
LOC: M SFHCRHEU 11:37
PROVIDERS: ATTEND Internal Medicine
DX: R79.82 Elevated C-reactive protein (CRP) (principal); R70.0 Elevated erythrocyte sedimentation rate; Z87.39 Personal history of other diseases of the musculoskeletal system and connective tissue
CPT/HCPCS: 85652; 86140; 86200; 86431; G0463

== ENCOUNTER → 2021-08-05 | Outpatient (CLI) | payer MEDICARE, MEDICAID | LOC: M PLAIMG 11:17 | PROVIDERS: ATTEND Internal Medicine | DX: M25.50 Pain in unspecified joint (principal); M16.0 Bilateral primary osteoarthritis of hip; I10 Essential (primary) hypertension ==

== ENCOUNTER → 2021-09-21 | Outpatient (CLI) | payer MEDICARE, MEDICAID, OTHER ==
[2021-09-21 10:48] LABS: BASO # 0.1 10^3/uL (0.0-0.2); BASO % 0.7 % (0.0-1.0); EOS # 0.4 10^3/uL (0.0-0.5); EOS % 4.1 % (0.0-3.0); HEMOGLOBIN 14.4 g/dl (12.0-15.5); LYMPH # 2.7 10^3/uL (1.5-5.0); LYMPH % 30.5 % (24.0-44.0); MEAN CORPUSCULAR HEMOGLOBIN 28.1 pg (27.0-33.0); MEAN CORPUSCULAR HGB CONC 32.7 g/dl (32.0-36.5); MEAN CORPUSCULAR VOLUME 85.9 fl (80.0-96.0); MONO # 0.8 10^3/uL (0.0-0.8); MONO % 8.8 % (2.0-8.0); NEUTROPHILS # 4.9 10^3/uL (1.5-8.5); NEUTROPHILS % 55.3 % (36.0-66.0); PLATELET COUNT, AUTOMATED 286 10^3/uL (150-450); RED BLOOD COUNT 5.12 10^6/uL (4.00-5.40); WHITE BLOOD COUNT 8.8 10^3/uL (4.0-10.0)
[2021-09-21 11:16] LABS: HEMOGLOBIN A1c 8.3 %
[2021-09-21 11:26] LABS: ALBUMIN 3.7 GM/DL (3.2-5.2); ALT/SGPT 44 U/L (12-78); BILIRUBIN,TOTAL 0.6 MG/DL (0.2-1.0); BLOOD UREA NITROGEN 20 MG/DL (7-18); CALCIUM LEVEL 9.3 MG/DL (8.8-10.2); CARBON DIOXIDE LEVEL 29 MEQ/L (21-32); CHLORIDE LEVEL 104 MEQ/L (98-107); CHOLESTEROL LEVEL 151 MG/DL (<200); CHOLESTEROL RISK RATIO 2.696 (<5); CREATININE FOR GFR 0.77 MG/DL (0.55-1.30); GLOMERULAR FILTRATION RATE > 60.0 (>45); GLUCOSE, FASTING 141 MG/DL (70-100); HDL CHOLESTEROL 56 MG/DL (>40); LDL CHOLESTEROL 55 MG/DL (<100); NON-HDL-C 95 MG/DL; POTASSIUM SERUM 4.6 MEQ/L (3.5-5.1); SODIUM LEVEL 139 MEQ/L (136-145); TOTAL 25(OH) VITAMIN D 47.7 NG/ML (30.0-100.0); TOTAL PROTEIN 6.8 GM/DL (6.4-8.2); TRIGLYCERIDES LEVEL 199 MG/DL (<150)
[2021-09-21 11:29] LABS: CREATININE, URINE 51.3 MG/DL; MALB URINE SIEMENS 43.9 MG/L; MAU/CREAT RATIO 85.5 MCG/MG (0.0-30.0)
[2021-09-21 12:41] LABS: FOLATE 21.7 NG/ML (>5.4); VITAMIN B12 LEVEL 520 PG/ML (247-911)
== END ==
LOC: M WUC 08:18
PROVIDERS: ATTEND Nurse Practitioner Family
DX: I10 Essential (primary) hypertension (principal); E11.29 Type 2 diabetes mellitus with other diabetic kidney complication; E78.5 Hyperlipidemia, unspecified; E55.9 Vitamin D deficiency, unspecified; G62.9 Polyneuropathy, unspecified; Z79.82 Long term (current) use of aspirin; Z79.899 Other long term (current) drug therapy

== ENCOUNTER → 2021-10-09 | Outpatient (CLI) | payer MEDICARE, MEDICAID, OTHER | LOC: M SOG 08:25 | PROVIDERS: ATTEND Orthopaedic Surgery Adult Reconstructive Orthopaedic Surgery | DX: M25.561 Pain in right knee (principal); M25.562 Pain in left knee ==

== ENCOUNTER → 2021-11-04 | Outpatient (CLI) | payer MEDICARE, OTHER ==
[~2021-11-04] MED LIST changes: +BUPIVACAINE HCL 0.5% 10ML VIAL As Ordered ONE; +ISOVUE-300 61% 50ML VIAL As Ordered ONE; +LIDOCAINE 1% MDV 20ML VIAL As Ordered ONE; +methylPREDNISolone 80MG/ML SUSP 1ML VIAL (J1040) As Ordered ONE
== END ==
LOC: M RADPRO 12:14
PROVIDERS: ATTEND Orthopaedic Surgery Adult Reconstructive Orthopaedic Surgery
DX: M16.11 Unilateral primary osteoarthritis, right hip (principal)
CPT/HCPCS: 20610; 77002; J1040; Q9967

== ENCOUNTER 2021-11-09 16:00 | Inpatient (IN) | payer MEDICARE, OTHER ==
[~2021-11-09] VITALS: Ht 167.6 cm; Wt 98.7 kg
[~2021-11-09 16:00] MED LIST changes: -BUPIVACAINE HCL 0.5% 10ML VIAL As Ordered ONE; -ISOVUE-300 61% 50ML VIAL As Ordered ONE; -LIDOCAINE 1% MDV 20ML VIAL As Ordered ONE; -methylPREDNISolone 80MG/ML SUSP 1ML VIAL (J1040) As Ordered ONE
[2021-11-09] MEDS ORDERED: PERCOCET 5MG/325MG TAB PO ONE (16:40)
[2021-11-09] MEDS ORDERED: MORPHINE 4 MG/ML 1ML VIAL/SYRINGE IV ONE (17:05)
[2021-11-09] MEDS ORDERED: NS 1,000 ML IV ONE (17:40)
[2021-11-09 17:50] LABS: HEMATOCRIT 48.4 % (36.0-47.0); HEMOGLOBIN 15.7 g/dl (12.0-15.5); MEAN CORPUSCULAR HGB CONC 32.4 g/dl (32.0-36.5); MEAN CORPUSCULAR VOLUME 86.3 fl (80.0-96.0); PLATELET COUNT, AUTOMATED 366 10^3/uL (150-450); RED BLOOD COUNT 5.61 10^6/uL (4.00-5.40); WHITE BLOOD COUNT 14.5 10^3/uL (4.0-10.0)
[2021-11-09] MEDS: INSULIN LISPRO (NovoLOG) PER UNIT SC SCH ×2 (18:00→23:39)
[2021-11-09] MEDS ORDERED: ONDANSETRON 4MG/2ML VIAL IV ONE (18:05)
[2021-11-09] MEDS ORDERED: NS 1,000 ML IV SCH (18:05)
[2021-11-09] MEDS ORDERED: propofoL 200 MG/20 ML VIAL IV.PROC PRN (18:05)
[2021-11-09 18:06] LABS: RSV AMPLIFICATION NEGATIVE (NEGATIVE)
[2021-11-09] MEDS ORDERED: LOSA25TA13 PO ×2 (18:21→21:13)
[2021-11-09] MEDS ORDERED: DITR5TAB PO (18:21)
[2021-11-09] MEDS ORDERED: LYRI75CA PO (18:21)
[2021-11-09] MEDS ORDERED: JARD1TAB3 PO ×2 (18:21→21:13)
[2021-11-09] MEDS ORDERED: PANT20TA6 PO ×2 (18:21→21:20)
[2021-11-09] MEDS ORDERED: PROAAER10 INH (18:21)
[2021-11-09 18:25] LABS: BILIRUBIN,DIRECT 0.1 MG/DL (0.0-0.2); BILIRUBIN,TOTAL 0.7 MG/DL (0.2-1.0); CALCIUM LEVEL 9.7 MG/DL (8.8-10.2); CREATININE FOR GFR 1.31 MG/DL (0.55-1.30); GLOMERULAR FILTRATION RATE 43.9 (>45); POTASSIUM SERUM 4.7 MEQ/L (3.5-5.1)
[2021-11-09 18:32] LABS: HEMOGLOBIN A1c 7.7 %
[2021-11-09 18:48] VITALS: O2SAT 96
[2021-11-09] MEDS ORDERED: GLUCAGON INJ 1MG VIAL SC PRN (19:30)
[2021-11-09] MEDS ORDERED: MAALOX 30 ML SUSP *UDC PO PRN (19:30)
[2021-11-09] MEDS ORDERED: DEXTROSE 50% 50 ML SYRINGE IV PRN (19:30)
[2021-11-09] MEDS ORDERED: MOM 30ML SUSPENSION UDC PO PRN (19:30)
[2021-11-09] MEDS ORDERED: GLUCOSE 4GM CHEW TABLET PO PRN (19:30)
[2021-11-09 20:43] LABS: INR 0.94
[2021-11-09 21:00] LABS: CK-MB VALUE MASS < 1.0 NG/ML (<3.6); CPK CREATINE PHOSPHOKINASE 57 U/L (26-192); MB/CK RELATIVE INDEX 1.75 (< OR =4)
[2021-11-09] MEDS ORDERED: HumuLIN (NovoLIN)70/30 INSULIN INJ PER UNIT SC SCH (21:00)
[2021-11-09] MEDS ORDERED: BUSP5TA PO (21:13)
[2021-11-09] MEDS ORDERED: BISO5TAB14 PO (21:13)
[2021-11-09] MEDS ORDERED: METF10004 PO (21:13)
[2021-11-09] MEDS ORDERED: DULO1CAP5 PO (21:13)
[2021-11-09] MEDS ORDERED: ERGO500029 PO (21:13)
[2021-11-09] MEDS ORDERED: ONDA-195 PO (21:13)
[2021-11-09] MEDS ORDERED: ATOR80TA59 PO (21:13)
[2021-11-09] MEDS ORDERED: OXYB5TAB10 PO (21:13)
[2021-11-09] MEDS ORDERED: ASPI-161 PO (21:13)
[2021-11-09] MEDS ORDERED: CLOP75TA2 PO (21:13)
[2021-11-09] MEDS ORDERED: DULO1CAP6 PO (21:13)
[2021-11-09] MEDS ORDERED: MAGN400T35 PO (21:13)
[2021-11-09] MEDS ORDERED: BUSP5TAB81 PO (21:13)
[2021-11-09] MEDS ORDERED: FAMO40TA3 PO (21:20)
[2021-11-09] MEDS ORDERED: DICL20GE TOP (21:20)
[2021-11-09] MEDS ORDERED: OCUVCAP2 PO (21:20)
[2021-11-09] MEDS ORDERED: NOVO1INJ4 SC (21:20)
[2021-11-09] MEDS ORDERED: TOVI8TAB PO (21:20)
[2021-11-09] MEDS ORDERED: [UNRECOGNIZED DRUG - CODE] SSP (21:20)
[2021-11-09] MEDS ORDERED: TRAM50TA2 PO (21:20)
[2021-11-09] MEDS ORDERED: ROPI2TAB3 PO (21:20)
[2021-11-09] MEDS ORDERED: HOME MED LIST COMPLETE! XX SCH (21:25)
[2021-11-09] MEDS ORDERED: SALIVA SUBSTITUTE(MOUTHKOTE) BTL MT PRN (21:35)
[2021-11-09] MEDS ORDERED: ALBUTEROL 90 MCG/ACT 8GM HFA INHALER INH PRN (21:35)
[2021-11-09] MEDS ORDERED: LOPERAMIDE 2 MG CAPLET PO PRN (21:35)
[2021-11-09 21:45] VITALS: BP 146/85
[2021-11-09] MEDS ORDERED: HumuLIN (NovoLIN)70/30 INSULIN INJ PER UNIT SC ONE (23:15)
[2021-11-09] MEDS: NS 1,000 ML IV SCH (23:35)
[2021-11-09] MEDS: busPIRone 5 MG TAB PO SCH (23:36)
[2021-11-09] MEDS: DOCUSATE SODIUM 100MG CAPSULE PO SCH (23:36)
[2021-11-09] MEDS: PREGABALIN 75 MG CAP(LYRICA) PO SCH (23:37)
[2021-11-09] MEDS: oxyBUTYnin 5 MG TAB PO SCH (23:37)
[2021-11-09] MEDS: rOPINIRole 2MG TAB PO SCH (23:38)
[2021-11-10] VITALS (7 sets, daily range): BP systolic 111–158; BP diastolic 58–84
[2021-11-10] MEDS: MORPHINE 2 MG/ML 1ML VIAL IV PRN ×3 (00:16→07:54)
[2021-11-10] MEDS ORDERED: ONDANSETRON 4MG TAB PO PRN (02:00)
[2021-11-10] MEDS: NS 1,000 ML IV SCH ×2 (03:58→07:44)
[2021-11-10] MEDS: INSULIN LISPRO (NovoLOG) PER UNIT SC SCH ×4 (06:00→21:00)
[2021-11-10] MEDS: DULoxetine 30MG CAPSULE (CYMBALTA) PO SCH (07:55)
[2021-11-10] MEDS: ASPIRIN 81MG ENTERIC TABLET PO SCH (07:55)
[2021-11-10] MEDS: PANTOPRAZOLE 20 MG TAB PO SCH (07:56)
[2021-11-10] MEDS: MAGNESIUM OXIDE 400MG TAB (MAG-OX) PO SCH (07:56)
[2021-11-10] MEDS: FAMOTIDINE 20 MG TAB PO SCH (07:56)
[2021-11-10] MEDS: ATORVASTATIN 20 MG TAB PO SCH (07:57)
[2021-11-10] MEDS: LOSARTAN 25 MG TAB PO SCH (07:57)
[2021-11-10] MEDS: busPIRone 10 MG TAB PO SCH (07:57)
[2021-11-10] MEDS: PREGABALIN 75 MG CAP(LYRICA) PO SCH ×3 (07:57→21:46)
[2021-11-10] MEDS: DOCUSATE SODIUM 100MG CAPSULE PO SCH ×2 (07:57→21:45)
[2021-11-10] MEDS: BISOPROLOL FUM 2.5 MG PER 1/2TAB PO SCH (07:58)
[2021-11-10] MEDS ORDERED: DULoxetine 30MG CAPSULE (CYMBALTA) PO SCH (09:00)
[2021-11-10] MEDS ORDERED: METOCLOPRAMIDE INJ 10MG/2ML VIAL (J2765 PER 1) As Ordered ONE (13:34)
[2021-11-10] MEDS ORDERED: KETOROLAC 60MG 2ML VIAL As Ordered ONE (13:34)
[2021-11-10] MEDS ORDERED: LIDOCAINE 2% 100MG/5ML SDV (FOR ANES.) As Ordered ONE (13:34)
[2021-11-10] MEDS ORDERED: ONDANSETRON 4MG/2ML VIAL As Ordered ONE (13:34)
[2021-11-10] MEDS ORDERED: ACETAMINOPHEN 1000MG 100ML IV BTL (OFIRMEV) (J0131 PER 10MG) As Ordered ONE (13:34)
[2021-11-10] MEDS ORDERED: dexameTHASONE 4 MG/ML 1ML VIAL (J1100 PER 1MG) As Ordered ONE (13:34)
[2021-11-10] MEDS ORDERED: propofoL 200 MG/20 ML VIAL As Ordered ONE (13:34)
[2021-11-10] MEDS ORDERED: ROCURONIUM BROMIDE 50 MG/5 ML VIAL As Ordered ONE (13:34)
[2021-11-10] MEDS ORDERED: fentaNYL 100 MCG/2 ML INJECTION As Ordered ONE (13:35)
[2021-11-10] MEDS ORDERED: MIDAZOLAM INJ 2MG/2ML VIAL (J2250 PER 1MG) As Ordered ONE (13:35)
[2021-11-10] MEDS ORDERED: BUPIVACAINE LIPOSOME/PF 1.3% 20ML VIAL (13.3MG/ML)(EXPAREL) As Ordered ONE (13:52)
[2021-11-10] MEDS ORDERED: BUPIVACAINE HCL 0.25% 10ML VIAL As Ordered ONE (13:52)
[2021-11-10] MEDS ORDERED: ceFAZolin 1GM VIAL (J0690 PER 500MG) As Ordered ONE (14:33)
[2021-11-10] MEDS ORDERED: TRANEXAMIC ACID 100 MG/ML 10ML VIAL As Ordered ONE (14:33)
[2021-11-10] MEDS ORDERED: HYDROmorphone HCL 2MG/ML 1ML VIAL As Ordered ONE (15:10)
[2021-11-10] MEDS ORDERED: MORPHINE 2 MG/ML 1ML VIAL IV PRN (16:35)
[2021-11-10] MEDS ORDERED: oxyCODONE 5MG TAB PO PRN (16:35)
[2021-11-10] MEDS ORDERED: ALBUTEROL SULFATE 2.5 MG/0.5 ML INH NEB SOLN INH ONE ×2 (16:35→16:45)
[2021-11-10] MEDS ORDERED: LR 1,000 ML IV SCH (16:35)
[2021-11-10] MEDS ORDERED: ONDANSETRON 4MG/2ML VIAL IV PRN (16:35)
[2021-11-10] MEDS ORDERED: METOCLOPRAMIDE INJ 10MG/2ML VIAL (J2765 PER 1) IV PRN (16:35)
[2021-11-10] MEDS ORDERED: INSULIN LISPRO (NovoLOG) PER UNIT SC PRN (16:35)
[2021-11-10] MEDS ORDERED: fentaNYL 100 MCG/2 ML INJECTION IV PRN (16:35)
[2021-11-10] MEDS ORDERED: SUGAMMADEX SODIUM 500 MG/5 ML VIAL (BRIDION) As Ordered ONE (16:56)
[2021-11-10] MEDS ORDERED: HumuLIN (NovoLIN)70/30 INSULIN INJ PER UNIT SC SCH (21:00)
[2021-11-10] MEDS: busPIRone 5 MG TAB PO SCH (21:45)
[2021-11-10] MEDS: oxyBUTYnin 5 MG TAB PO SCH (21:45)
[2021-11-10] MEDS: rOPINIRole 2MG TAB PO SCH (21:46)
[2021-11-10] MEDS: ceFAZolin SOD 2 GM in IV 1 EA IV SCH (21:46)
[2021-11-10] MEDS: ACETAMINOPHEN TAB 650MG DOSE (2X325MG) PO PRN (22:38)
[2021-11-11 02:15] VITALS: BP 109/58
[2021-11-11] MEDS: ceFAZolin SOD 2 GM in IV 1 EA IV SCH (06:00)
[2021-11-11 06:15] VITALS: BP 152/67
[2021-11-11 07:28] LABS: BLOOD UREA NITROGEN 18 MG/DL (7-18); CALCIUM LEVEL 8.4 MG/DL (8.8-10.2); CARBON DIOXIDE LEVEL 24 MEQ/L (21-32); CHLORIDE LEVEL 112 MEQ/L (98-107); CREATININE FOR GFR 0.85 MG/DL (0.55-1.30); GLOMERULAR FILTRATION RATE > 60.0 (>45); GLUCOSE, FASTING 196 MG/DL (70-100); POTASSIUM SERUM 5.3 MEQ/L (3.5-5.1); SODIUM LEVEL 139 MEQ/L (136-145)
[2021-11-11 07:34] LABS: HEMATOCRIT 36.7 % (36.0-47.0); MEAN CORPUSCULAR HEMOGLOBIN 28.2 pg (27.0-33.0); MEAN CORPUSCULAR HGB CONC 32.2 g/dl (32.0-36.5); MEAN CORPUSCULAR VOLUME 87.8 fl (80.0-96.0); PLATELET COUNT, AUTOMATED 250 10^3/uL (150-450); RED BLOOD COUNT 4.18 10^6/uL (4.00-5.40); WHITE BLOOD COUNT 10.2 10^3/uL (4.0-10.0)
[2021-11-11 07:40] LABS: HEMOGLOBIN 11.8 g/dl (12.0-15.5)
[2021-11-11] MEDS: ASPIRIN 81MG ENTERIC TABLET PO SCH (09:40)
[2021-11-11] MEDS: ATORVASTATIN 20 MG TAB PO SCH (09:40)
[2021-11-11] MEDS: DOCUSATE SODIUM 100MG CAPSULE PO SCH ×2 (09:40→20:11)
[2021-11-11] MEDS: busPIRone 10 MG TAB PO SCH (09:40)
[2021-11-11] MEDS: FAMOTIDINE 20 MG TAB PO SCH (09:40)
[2021-11-11] MEDS: DULoxetine 30MG CAPSULE (CYMBALTA) PO SCH (09:40)
[2021-11-11] MEDS: PANTOPRAZOLE 20 MG TAB PO SCH (09:40)
[2021-11-11] MEDS: PREGABALIN 75 MG CAP(LYRICA) PO SCH ×3 (09:40→20:12)
[2021-11-11] MEDS: MAGNESIUM OXIDE 400MG TAB (MAG-OX) PO SCH (09:41)
[2021-11-11] MEDS: LOSARTAN 25 MG TAB PO SCH (09:41)
[2021-11-11] MEDS: ACETAMINOPHEN TAB 650MG DOSE (2X325MG) PO PRN ×2 (09:41→22:30)
[2021-11-11] MEDS: BISOPROLOL FUM 2.5 MG PER 1/2TAB PO SCH (09:41)
[2021-11-11] MEDS: MORPHINE 2 MG/ML 1ML VIAL IV PRN ×2 (09:42→20:11)
[2021-11-11] MEDS: INSULIN LISPRO (NovoLOG) PER UNIT SC SCH ×4 (09:45→21:28)
[2021-11-11 10:00] VITALS: BP 145/67
[2021-11-11 14:00] VITALS: BP 142/69
[2021-11-11] MEDS: CLOPIDOGREL 75 MG TAB PO SCH (14:01)
[2021-11-11 18:00] VITALS: BP 139/69
[2021-11-11] MEDS: oxyBUTYnin 5 MG TAB PO SCH (20:11)
[2021-11-11] MEDS: busPIRone 5 MG TAB PO SCH (20:12)
[2021-11-11] MEDS: rOPINIRole 2MG TAB PO SCH (20:12)
[2021-11-11 20:48] VITALS: BP 141/78
[2021-11-12 03:45] VITALS: BP 157/99
[2021-11-12] MEDS: MORPHINE 2 MG/ML 1ML VIAL IV PRN ×2 (04:00→08:55)
[2021-11-12 05:53] LABS: HEMATOCRIT 35.7 % (36.0-47.0); HEMOGLOBIN 11.3 g/dl (12.0-15.5); MEAN CORPUSCULAR HEMOGLOBIN 27.2 pg (27.0-33.0); MEAN CORPUSCULAR HGB CONC 31.7 g/dl (32.0-36.5); MEAN CORPUSCULAR VOLUME 85.8 fl (80.0-96.0); PLATELET COUNT, AUTOMATED 196 10^3/uL (150-450); RED BLOOD COUNT 4.16 10^6/uL (4.00-5.40); WHITE BLOOD COUNT 10.7 10^3/uL (4.0-10.0)
[2021-11-12] MEDS: ACETAMINOPHEN TAB 650MG DOSE (2X325MG) PO PRN ×3 (06:07→16:16)
[2021-11-12 06:13] LABS: BLOOD UREA NITROGEN 16 MG/DL (7-18); CALCIUM LEVEL 8.4 MG/DL (8.8-10.2); CARBON DIOXIDE LEVEL 25 MEQ/L (21-32); CHLORIDE LEVEL 110 MEQ/L (98-107); CREATININE FOR GFR 0.84 MG/DL (0.55-1.30); GLOMERULAR FILTRATION RATE > 60.0 (>45); GLUCOSE, FASTING 200 MG/DL (70-100); POTASSIUM SERUM 4.5 MEQ/L (3.5-5.1); SODIUM LEVEL 140 MEQ/L (136-145)
[2021-11-12] MEDS: INSULIN LISPRO (NovoLOG) PER UNIT SC SCH ×4 (07:49→20:30)
[2021-11-12] MEDS: ASPIRIN 81MG ENTERIC TABLET PO SCH (08:55)
[2021-11-12] MEDS: DULoxetine 30MG CAPSULE (CYMBALTA) PO SCH (08:55)
[2021-11-12] MEDS: LOSARTAN 25 MG TAB PO SCH (08:56)
[2021-11-12] MEDS: PREGABALIN 75 MG CAP(LYRICA) PO SCH ×3 (08:56→20:31)
[2021-11-12] MEDS: PANTOPRAZOLE 20 MG TAB PO SCH (08:56)
[2021-11-12] MEDS: FAMOTIDINE 20 MG TAB PO SCH (08:56)
[2021-11-12] MEDS: BISOPROLOL FUM 2.5 MG PER 1/2TAB PO SCH (08:56)
[2021-11-12] MEDS: ATORVASTATIN 20 MG TAB PO SCH (08:56)
[2021-11-12] MEDS: busPIRone 10 MG TAB PO SCH (08:57)
[2021-11-12] MEDS: MAGNESIUM OXIDE 400MG TAB (MAG-OX) PO SCH (08:57)
[2021-11-12] MEDS: CLOPIDOGREL 75 MG TAB PO SCH (08:57)
[2021-11-12] MEDS: DOCUSATE SODIUM 100MG CAPSULE PO SCH ×2 (08:57→20:31)
[2021-11-12] MEDS ORDERED: MIRALAX *UNIT DOSE* 17GM PACKET PO PRN (12:15)
[2021-11-12] MEDS: oxyCODONE 5MG TAB PO PRN (13:05)
[2021-11-12 14:00] VITALS: BP 150/76
[2021-11-12] MEDS: LEVEMIR (INSULIN DETEMIR) 1 UNITS/0.01ML SC SCH (20:29)
[2021-11-12] MEDS: rOPINIRole 2MG TAB PO SCH (20:31)
[2021-11-12] MEDS: oxyBUTYnin 5 MG TAB PO SCH (20:31)
[2021-11-12] MEDS: busPIRone 5 MG TAB PO SCH (21:38)
[2021-11-12] MEDS: MORPHINE 4 MG/ML 1ML VIAL/SYRINGE IV PRN (21:38)
[2021-11-12 22:00] VITALS: BP 141/61
[2021-11-13] MEDS: MORPHINE 4 MG/ML 1ML VIAL/SYRINGE IV PRN (01:36)
[2021-11-13 06:00] VITALS: BP 150/84
[2021-11-13 06:56] LABS: HEMATOCRIT 35.2 % (36.0-47.0); HEMOGLOBIN 11.6 g/dl (12.0-15.5); MEAN CORPUSCULAR HEMOGLOBIN 28.4 pg (27.0-33.0); MEAN CORPUSCULAR VOLUME 86.1 fl (80.0-96.0); PLATELET COUNT, AUTOMATED 209 10^3/uL (150-450); RED BLOOD COUNT 4.09 10^6/uL (4.00-5.40); WHITE BLOOD COUNT 10.4 10^3/uL (4.0-10.0)
[2021-11-13 07:25] LABS: BLOOD UREA NITROGEN 15 MG/DL (7-18); CALCIUM LEVEL 9.2 MG/DL (8.8-10.2); CARBON DIOXIDE LEVEL 22 MEQ/L (21-32); CHLORIDE LEVEL 108 MEQ/L (98-107); CREATININE FOR GFR 0.81 MG/DL (0.55-1.30); GLOMERULAR FILTRATION RATE > 60.0 (>45); GLUCOSE, FASTING 200 MG/DL (70-100); POTASSIUM SERUM 4.5 MEQ/L (3.5-5.1); SODIUM LEVEL 139 MEQ/L (136-145)
[2021-11-13] MEDS: DOCUSATE SODIUM 100MG CAPSULE PO SCH ×2 (09:39→22:34)
[2021-11-13] MEDS: PREGABALIN 75 MG CAP(LYRICA) PO SCH ×3 (09:39→22:34)
[2021-11-13] MEDS: INSULIN LISPRO (NovoLOG) PER UNIT SC SCH ×4 (09:39→22:36)
[2021-11-13] MEDS: MAGNESIUM OXIDE 400MG TAB (MAG-OX) PO SCH (09:40)
[2021-11-13] MEDS: CLOPIDOGREL 75 MG TAB PO SCH (09:40)
[2021-11-13] MEDS: busPIRone 10 MG TAB PO SCH (09:40)
[2021-11-13] MEDS: BISOPROLOL FUM 2.5 MG PER 1/2TAB PO SCH (09:40)
[2021-11-13] MEDS: LOSARTAN 25 MG TAB PO SCH (09:41)
[2021-11-13] MEDS: DULoxetine 30MG CAPSULE (CYMBALTA) PO SCH (09:41)
[2021-11-13] MEDS: ASPIRIN 81MG ENTERIC TABLET PO SCH (09:41)
[2021-11-13] MEDS: oxyCODONE 5MG TAB PO PRN (09:41)
[2021-11-13] MEDS: ATORVASTATIN 20 MG TAB PO SCH (09:41)
[2021-11-13] MEDS: FAMOTIDINE 20 MG TAB PO SCH (09:41)
[2021-11-13] MEDS: PANTOPRAZOLE 20 MG TAB PO SCH (09:45)
[2021-11-13] MEDS ORDERED: traMADol 50 MG TAB PO PRN (14:20)
[2021-11-13] MEDS ORDERED: KETOROLAC TROMETHAMINE 10 MG TAB PO PRN (14:20)
[2021-11-13] MEDS: ACETAMINOPHEN 500 MG TAB PO SCH ×2 (15:28→22:35)
[2021-11-13] MEDS: oxyBUTYnin 5 MG TAB PO SCH (22:35)
[2021-11-13] MEDS: rOPINIRole 2MG TAB PO SCH (22:35)
[2021-11-13] MEDS: LEVEMIR (INSULIN DETEMIR) 1 UNITS/0.01ML SC SCH (22:36)
[2021-11-13] MEDS: busPIRone 5 MG TAB PO SCH (22:38)
[2021-11-14] MEDS: ACETAMINOPHEN 500 MG TAB PO SCH ×3 (05:21→21:40)
[2021-11-14 06:00] VITALS: BP 143/74
[2021-11-14 06:30] LABS: HEMATOCRIT 34.1 % (36.0-47.0); HEMOGLOBIN 11.1 g/dl (12.0-15.5); MEAN CORPUSCULAR HEMOGLOBIN 28.1 pg (27.0-33.0); MEAN CORPUSCULAR HGB CONC 32.6 g/dl (32.0-36.5); MEAN CORPUSCULAR VOLUME 86.3 fl (80.0-96.0); PLATELET COUNT, AUTOMATED 224 10^3/uL (150-450); RED BLOOD COUNT 3.95 10^6/uL (4.00-5.40)
[2021-11-14 06:54] LABS: BLOOD UREA NITROGEN 16 MG/DL (7-18); CALCIUM LEVEL 8.6 MG/DL (8.8-10.2); CARBON DIOXIDE LEVEL 25 MEQ/L (21-32); CHLORIDE LEVEL 107 MEQ/L (98-107); CREATININE FOR GFR 0.78 MG/DL (0.55-1.30); GLOMERULAR FILTRATION RATE > 60.0 (>45); GLUCOSE, FASTING 161 MG/DL (70-100); POTASSIUM SERUM 4.2 MEQ/L (3.5-5.1); SODIUM LEVEL 139 MEQ/L (136-145)
[2021-11-14] MEDS: DOCUSATE SODIUM 100MG CAPSULE PO SCH ×2 (08:17→21:39)
[2021-11-14] MEDS: DULoxetine 30MG CAPSULE (CYMBALTA) PO SCH (08:18)
[2021-11-14] MEDS: ATORVASTATIN 20 MG TAB PO SCH (08:18)
[2021-11-14] MEDS: INSULIN LISPRO (NovoLOG) PER UNIT SC SCH ×4 (08:18→21:40)
[2021-11-14] MEDS: busPIRone 10 MG TAB PO SCH (08:18)
[2021-11-14] MEDS: FAMOTIDINE 20 MG TAB PO SCH (08:18)
[2021-11-14] MEDS: PREGABALIN 75 MG CAP(LYRICA) PO SCH ×3 (08:18→21:39)
[2021-11-14] MEDS: CLOPIDOGREL 75 MG TAB PO SCH (08:18)
[2021-11-14] MEDS: ASPIRIN 81MG ENTERIC TABLET PO SCH (08:18)
[2021-11-14] MEDS: PANTOPRAZOLE 20 MG TAB PO SCH (08:18)
[2021-11-14] MEDS: LOSARTAN 25 MG TAB PO SCH (08:19)
[2021-11-14] MEDS: MAGNESIUM OXIDE 400MG TAB (MAG-OX) PO SCH (08:19)
[2021-11-14] MEDS: BISOPROLOL FUM 2.5 MG PER 1/2TAB PO SCH (08:19)
[2021-11-14] MEDS: oxyBUTYnin 5 MG TAB PO SCH (21:39)
[2021-11-14] MEDS: rOPINIRole 2MG TAB PO SCH (21:39)
[2021-11-14] MEDS: busPIRone 5 MG TAB PO SCH (21:39)
[2021-11-14] MEDS: LEVEMIR (INSULIN DETEMIR) 1 UNITS/0.01ML SC SCH (21:40)
[2021-11-15] MEDS: ACETAMINOPHEN 500 MG TAB PO SCH ×3 (05:31→22:11)
[2021-11-15 06:00] VITALS: BP 155/77
[2021-11-15 06:15] LABS: HEMATOCRIT 35.6 % (36.0-47.0); HEMOGLOBIN 11.6 g/dl (12.0-15.5); MEAN CORPUSCULAR HEMOGLOBIN 27.8 pg (27.0-33.0); MEAN CORPUSCULAR HGB CONC 32.6 g/dl (32.0-36.5); MEAN CORPUSCULAR VOLUME 85.2 fl (80.0-96.0); PLATELET COUNT, AUTOMATED 262 10^3/uL (150-450); RED BLOOD COUNT 4.18 10^6/uL (4.00-5.40); WHITE BLOOD COUNT 7.9 10^3/uL (4.0-10.0)
[2021-11-15 06:47] LABS: BLOOD UREA NITROGEN 21 MG/DL (7-18); CALCIUM LEVEL 8.8 MG/DL (8.8-10.2); CARBON DIOXIDE LEVEL 23 MEQ/L (21-32); CHLORIDE LEVEL 107 MEQ/L (98-107); CREATININE FOR GFR 0.94 MG/DL (0.55-1.30); GLOMERULAR FILTRATION RATE > 60.0 (>45); GLUCOSE, FASTING 226 MG/DL (70-100); POTASSIUM SERUM 4.6 MEQ/L (3.5-5.1); SODIUM LEVEL 136 MEQ/L (136-145)
[2021-11-15 08:26] VITALS: BP 156/78
[2021-11-15] MEDS: BISOPROLOL FUM 2.5 MG PER 1/2TAB PO SCH (08:26)
[2021-11-15] MEDS: PANTOPRAZOLE 20 MG TAB PO SCH (08:27)
[2021-11-15] MEDS: DOCUSATE SODIUM 100MG CAPSULE PO SCH ×2 (08:27→22:10)
[2021-11-15] MEDS: ASPIRIN 81MG ENTERIC TABLET PO SCH (08:27)
[2021-11-15] MEDS: MAGNESIUM OXIDE 400MG TAB (MAG-OX) PO SCH (08:27)
[2021-11-15] MEDS: LOSARTAN 25 MG TAB PO SCH (08:27)
[2021-11-15] MEDS: CLOPIDOGREL 75 MG TAB PO SCH (08:27)
[2021-11-15] MEDS: busPIRone 10 MG TAB PO SCH (08:27)
[2021-11-15] MEDS: DULoxetine 30MG CAPSULE (CYMBALTA) PO SCH (08:27)
[2021-11-15] MEDS: ATORVASTATIN 20 MG TAB PO SCH (08:27)
[2021-11-15] MEDS: FAMOTIDINE 20 MG TAB PO SCH (08:27)
[2021-11-15] MEDS: PREGABALIN 75 MG CAP(LYRICA) PO SCH ×3 (08:27→22:10)
[2021-11-15] MEDS: INSULIN LISPRO (NovoLOG) PER UNIT SC SCH ×4 (08:28→22:10)
[2021-11-15] MEDS ORDERED: LEVEMIR (INSULIN DETEMIR) 1 UNITS/0.01ML SC SCH (21:00)
[2021-11-15] MEDS: rOPINIRole 2MG TAB PO SCH (22:10)
[2021-11-15] MEDS: busPIRone 5 MG TAB PO SCH (22:10)
[2021-11-15] MEDS: oxyBUTYnin 5 MG TAB PO SCH (22:10)
[2021-11-16] MEDS: ACETAMINOPHEN 500 MG TAB PO SCH (05:16)
[2021-11-16 05:30] VITALS: BP 140/77
[2021-11-16 07:05] LABS: BLOOD UREA NITROGEN 18 MG/DL (7-18); CALCIUM LEVEL 9.2 MG/DL (8.8-10.2); CARBON DIOXIDE LEVEL 24 MEQ/L (21-32); CHLORIDE LEVEL 108 MEQ/L (98-107); CREATININE FOR GFR 0.88 MG/DL (0.55-1.30); GLOMERULAR FILTRATION RATE > 60.0 (>45); GLUCOSE, FASTING 291 MG/DL (70-100); POTASSIUM SERUM 4.7 MEQ/L (3.5-5.1); SODIUM LEVEL 140 MEQ/L (136-145)
[2021-11-16 07:12] LABS: HEMATOCRIT 38.1 % (36.0-47.0); HEMOGLOBIN 12.4 g/dl (12.0-15.5); MEAN CORPUSCULAR HEMOGLOBIN 28.1 pg (27.0-33.0); MEAN CORPUSCULAR HGB CONC 32.5 g/dl (32.0-36.5); MEAN CORPUSCULAR VOLUME 86.4 fl (80.0-96.0); PLATELET COUNT, AUTOMATED 314 10^3/uL (150-450); RED BLOOD COUNT 4.41 10^6/uL (4.00-5.40); WHITE BLOOD COUNT 9.3 10^3/uL (4.0-10.0)
[2021-11-16] MEDS: DOCUSATE SODIUM 100MG CAPSULE PO SCH (09:08)
[2021-11-16] MEDS: INSULIN LISPRO (NovoLOG) PER UNIT SC SCH (09:08)
[2021-11-16] MEDS: MAGNESIUM OXIDE 400MG TAB (MAG-OX) PO SCH (09:08)
[2021-11-16] MEDS: busPIRone 10 MG TAB PO SCH (09:09)
[2021-11-16] MEDS: DULoxetine 30MG CAPSULE (CYMBALTA) PO SCH (09:09)
[2021-11-16] MEDS: LOSARTAN 25 MG TAB PO SCH (09:09)
[2021-11-16] MEDS: ASPIRIN 81MG ENTERIC TABLET PO SCH (09:09)
[2021-11-16] MEDS: FAMOTIDINE 20 MG TAB PO SCH (09:09)
[2021-11-16] MEDS: BISOPROLOL FUM 2.5 MG PER 1/2TAB PO SCH (09:09)
[2021-11-16] MEDS: PREGABALIN 75 MG CAP(LYRICA) PO SCH (09:09)
[2021-11-16] MEDS: CLOPIDOGREL 75 MG TAB PO SCH (09:09)
[2021-11-16] MEDS: ATORVASTATIN 20 MG TAB PO SCH (09:09)
[2021-11-16] MEDS: PANTOPRAZOLE 20 MG TAB PO SCH (09:11)
== END 2021-11-16 10:44 | DRG 494 ==
LOC: M ED 16:00 → M ED INP 19:30 → ENRESERV 19:55 → M MSPAV 21:40
PROVIDERS: ADMIT Family Medicine; ATTEND Family Medicine
PROC: 0QSKXZZ Reposition Left Fibula, External Approach (ICD-10-PCS; 2021-11-09)
PROC: 2W3RX1Z Immobilization of Left Lower Leg using Splint (ICD-10-PCS; 2021-11-09)
PROC: 0QSJ04Z Reposition Right Fibula with Internal Fixation Device, Open Approach (ICD-10-PCS; 2021-11-10)
PROC: BQ1GZZZ Fluoroscopy of Right Ankle (ICD-10-PCS; 2021-11-10)
PROC: BQ1HZZZ Fluoroscopy of Left Ankle (ICD-10-PCS; 2021-11-10)
PROC: 0QSK04Z Reposition Left Fibula with Internal Fixation Device, Open Approach (ICD-10-PCS; principal; 2021-11-10 13:00)
DX: S82.51XA Displaced fracture of medial malleolus of right tibia, initial encounter for closed fracture (principal); S89.302A Unspecified physeal fracture of lower end of left fibula, initial encounter for closed fracture; E78.5 Hyperlipidemia, unspecified; I12.9 Hypertensive chronic kidney disease with stage 1 through stage 4 chronic kidney disease, or unspecified chronic kidney disease; Z86.718 Personal history of other venous thrombosis and embolism; K21.9 Gastro-esophageal reflux disease without esophagitis; E11.42 Type 2 diabetes mellitus with diabetic polyneuropathy; R29.6 Repeated falls; Z90.49 Acquired absence of other specified parts of digestive tract; Z90.79 Acquired absence of other genital organ(s); E11.22 Type 2 diabetes mellitus with diabetic chronic kidney disease; N18.31 Chronic kidney disease, stage 3a; D72.829 Elevated white blood cell count, unspecified; G25.81 Restless legs syndrome; J45.909 Unspecified asthma, uncomplicated; N32.81 Overactive bladder; Z20.822 Contact with and (suspected) exposure to COVID-19; Z79.82 Long term (current) use of aspirin; Z79.4 Long term (current) use of insulin; Z79.899 Other long term (current) drug therapy; Z88.1 Allergy status to other antibiotic agents; Z88.8 Allergy status to other drugs, medicaments and biological substances; M06.9 Rheumatoid arthritis, unspecified; M51.17 Intervertebral disc disorders with radiculopathy, lumbosacral region; Z79.01 Long term (current) use of anticoagulants; Z86.73 Personal history of transient ischemic attack (TIA), and cerebral infarction without residual deficits; W01.0XXA Fall on same level from slipping, tripping and stumbling without subsequent striking against object, initial encounter; Y92.009 Unspecified place in unspecified non-institutional (private) residence as the place of occurrence of the external cause

== ENCOUNTER → 2021-12-01 | Outpatient (CLI) | payer MEDICARE, OTHER ==
[~2021-12-01] MED LIST changes: +ASPI-161 PO; +ATOR80TA59 PO; +BISO5TAB14 PO; +BUSP5TA PO; +BUSP5TAB81 PO; +CLOP75TA2 PO; +DICL20GE TOP; +DITR5TAB PO; +DULO1CAP5 PO; +DULO1CAP6 PO; +ERGO500029 PO; +FAMO40TA3 PO; +JARD1TAB3 PO; +LOSA25TA13 PO; +MAGN400T35 PO; +NOVO1INJ4 SC; +OCUVCAP2 PO; +ONDA-195 PO; +OXYB5TAB10 PO; +PANT20TA6 PO; +PROAAER10 INH; +ROPI2TAB3 PO; +TOVI8TAB PO; +TRAM50TA2 PO; +[UNRECOGNIZED DRUG - CODE] SSP
== END ==
LOC: M SOG 09:51
PROVIDERS: ATTEND Orthopaedic Surgery
DX: S82.891A Other fracture of right lower leg, initial encounter for closed fracture (principal); S82.892A Other fracture of left lower leg, initial encounter for closed fracture

== ENCOUNTER → 2022-01-11 | Outpatient (CLI) | payer MEDICARE, OTHER | LOC: M SOG 09:36 | PROVIDERS: ATTEND Orthopaedic Surgery | DX: S82.62XD Displaced fracture of lateral malleolus of left fibula, subsequent encounter for closed fracture with routine healing (principal); S82.391D Other fracture of lower end of right tibia, subsequent encounter for closed fracture with routine healing; M77.32 Calcaneal spur, left foot; M77.31 Calcaneal spur, right foot ==

== ENCOUNTER → 2022-01-28 | Outpatient (CLI) | payer MEDICARE, OTHER | LOC: M SOG 08:05 | PROVIDERS: ATTEND Orthopaedic Surgery | DX: S82.62XD Displaced fracture of lateral malleolus of left fibula, subsequent encounter for closed fracture with routine healing (principal); S82.841D Displaced bimalleolar fracture of right lower leg, subsequent encounter for closed fracture with routine healing; X58.XXXD Exposure to other specified factors, subsequent encounter; Y92.89 Other specified places as the place of occurrence of the external cause ==

== ENCOUNTER → 2022-02-16 | Outpatient (CLI) | payer MEDICARE, OTHER ==
[2022-02-16 12:41] LABS: BASO % 0.5 % (0.0-1.0); EOS # 0.2 10^3/uL (0.0-0.5); EOS % 2.4 % (0.0-3.0); HEMATOCRIT 45.2 % (36.0-47.0); HEMOGLOBIN 13.9 g/dl (12.0-15.5); LYMPH # 2.2 10^3/uL (1.5-5.0); LYMPH % 25.8 % (24.0-44.0); MEAN CORPUSCULAR HEMOGLOBIN 25.4 pg (27.0-33.0); MEAN CORPUSCULAR HGB CONC 30.8 g/dl (32.0-36.5); MEAN CORPUSCULAR VOLUME 82.6 fl (80.0-96.0); MONO # 0.7 10^3/uL (0.0-0.8); MONO % 8.4 % (2.0-8.0); NEUTROPHILS # 5.2 10^3/uL (1.5-8.5); NEUTROPHILS % 62.5 % (36.0-66.0); PLATELET COUNT, AUTOMATED 271 10^3/uL (150-450); RED BLOOD COUNT 5.47 10^6/uL (4.00-5.40); WHITE BLOOD COUNT 8.3 10^3/uL (4.0-10.0)
[2022-02-16 13:24] LABS: CREATININE, URINE 73.1 MG/DL; MALB URINE SIEMENS 18.5 MG/L; MAU/CREAT RATIO 25.3 MCG/MG (0.0-30.0)
[2022-02-16 13:28] LABS: ALBUMIN 3.5 GM/DL (3.2-5.2); ALT/SGPT 23 U/L (12-78); BILIRUBIN,TOTAL 0.5 MG/DL (0.2-1.0); BLOOD UREA NITROGEN 14 MG/DL (7-18); CALCIUM LEVEL 9.5 MG/DL (8.8-10.2); CARBON DIOXIDE LEVEL 26 MEQ/L (21-32); CHLORIDE LEVEL 110 MEQ/L (98-107); CHOLESTEROL LEVEL 119 MG/DL (<200); CHOLESTEROL RISK RATIO 2.644 (<5); CREATININE FOR GFR 0.94 MG/DL (0.55-1.30); FREE T4 0.98 NG/DL (0.76-1.46); GLOMERULAR FILTRATION RATE > 60.0 (>45); GLUCOSE, FASTING 105 MG/DL (70-100); HDL CHOLESTEROL 45 MG/DL (>40); LDL CHOLESTEROL 46 MG/DL (<100); NON-HDL-C 74 MG/DL; POTASSIUM SERUM 4.5 MEQ/L (3.5-5.1); SODIUM LEVEL 141 MEQ/L (136-145); TOTAL PROTEIN 7.1 GM/DL (6.4-8.2); TRIGLYCERIDES LEVEL 138 MG/DL (<150)
[2022-02-16 14:48] LABS: HEMOGLOBIN A1c 6.4 %
== END ==
LOC: M WUC 09:27
PROVIDERS: ATTEND Nurse Practitioner Family
DX: E11.29 Type 2 diabetes mellitus with other diabetic kidney complication (principal); I10 Essential (primary) hypertension; E78.5 Hyperlipidemia, unspecified

== ENCOUNTER 2022-03-02 23:54 | Emergency (ER) | payer MEDICARE, OTHER ==
[~2022-03-02] VITALS: Ht 167.6 cm; Wt 93.4 kg
[2022-03-02 23:55] VITALS: BP 143/67
== END 2022-03-03 02:45 | disposition left against medical advice (07) ==
LOC: M ED 23:54
DX: Z53.29 Procedure and treatment not carried out because of patient's decision for other reasons (principal)

== ENCOUNTER 2022-03-06 11:24 | Emergency (ER) | payer MEDICARE, OTHER ==
[~2022-03-06] VITALS: Ht 167.6 cm; Wt 78.3 kg
[2022-03-06 13:07] LABS: BASO # 0.1 10^3/uL (0.0-0.2); BASO % 0.6 % (0.0-1.0); EOS # 0.2 10^3/uL (0.0-0.5); EOS % 2.1 % (0.0-3.0); HEMATOCRIT 40.8 % (36.0-47.0); HEMOGLOBIN 12.8 g/dl (12.0-15.5); LYMPH # 1.8 10^3/uL (1.5-5.0); LYMPH % 18.4 % (24.0-44.0); MEAN CORPUSCULAR HEMOGLOBIN 25.2 pg (27.0-33.0); MEAN CORPUSCULAR HGB CONC 31.4 g/dl (32.0-36.5); MEAN CORPUSCULAR VOLUME 80.5 fl (80.0-96.0); MONO # 0.9 10^3/uL (0.0-0.8); MONO % 9.4 % (2.0-8.0); NEUTROPHILS # 6.5 10^3/uL (1.5-8.5); NEUTROPHILS % 67.9 % (36.0-66.0); PLATELET COUNT, AUTOMATED 315 10^3/uL (150-450); RED BLOOD COUNT 5.07 10^6/uL (4.00-5.40); WHITE BLOOD COUNT 9.6 10^3/uL (4.0-10.0)
[2022-03-06 13:17] LABS: INR 0.9; PROTHROMBIN TIME 12.5 SECONDS (12.7-14.5)
[2022-03-06 13:18] LABS: PARTIAL THROMBOPLASTIN TIME 29.4 SECONDS (25.9-37.0)
[2022-03-06 13:37] LABS: BLOOD UREA NITROGEN 19 MG/DL (7-18); C REACTIVE PROTEIN QUANTITATIV 3.03 MG/DL (0.00-0.30); CALCIUM LEVEL 9.2 MG/DL (8.8-10.2); CARBON DIOXIDE LEVEL 23 MEQ/L (21-32); CHLORIDE LEVEL 107 MEQ/L (98-107); CREATININE FOR GFR 0.98 MG/DL (0.55-1.30); GLOMERULAR FILTRATION RATE > 60.0 (>45); GLUCOSE, FASTING 216 MG/DL (70-100); SODIUM LEVEL 137 MEQ/L (136-145)
[2022-03-06 13:39] LABS: ERYTHROCYTE SEDIMENTATION RATE 61 mm/hr (0-30)
[2022-03-06 13:55] LABS: NT-PRO BNP 74 PG/ML (<125)
[2022-03-06] MEDS ORDERED: NS 1,000 ML IV ONE (14:15)
[2022-03-06] MEDS ORDERED: ACETAMINOPH W/CODEINE #3 TAB UD PO ONE (15:30)
[2022-03-06 17:01] VITALS: BP 127/69
== END 2022-03-06 17:35 | disposition home or self-care (01) ==
LOC: M ED 11:24
DX: L03.116 Cellulitis of left lower limb (principal); E11.9 Type 2 diabetes mellitus without complications; I10 Essential (primary) hypertension; E78.5 Hyperlipidemia, unspecified; K21.9 Gastro-esophageal reflux disease without esophagitis; N18.9 Chronic kidney disease, unspecified; K58.9 Irritable bowel syndrome, unspecified; Z86.718 Personal history of other venous thrombosis and embolism; Z86.73 Personal history of transient ischemic attack (TIA), and cerebral infarction without residual deficits; Z88.1 Allergy status to other antibiotic agents; Z79.82 Long term (current) use of aspirin; Z79.899 Other long term (current) drug therapy; Z79.51 Long term (current) use of inhaled steroids

== ENCOUNTER → 2022-03-11 | Outpatient (CLI) | payer MEDICARE, OTHER | LOC: M SOG 08:28 | PROVIDERS: ATTEND Orthopaedic Surgery | DX: S82.62XD Displaced fracture of lateral malleolus of left fibula, subsequent encounter for closed fracture with routine healing (principal); S82.841D Displaced bimalleolar fracture of right lower leg, subsequent encounter for closed fracture with routine healing; M77.31 Calcaneal spur, right foot; M77.32 Calcaneal spur, left foot ==

== ENCOUNTER → 2022-03-18 | Outpatient (CLI) | payer MEDICARE, OTHER | LOC: M WHC 10:21 | PROVIDERS: ATTEND Nurse Practitioner Family | DX: Z12.31 Encounter for screening mammogram for malignant neoplasm of breast (principal) ==

== ENCOUNTER → 2022-04-21 | Outpatient (CLI) | payer MEDICARE, OTHER ==
[~2022-04-21] MED LIST changes: +BUSP5TAB PO; -BUSP5TAB81 PO; +CLOP75TA99 PO; -PLAV1TAB2 PO
== END ==
LOC: M SOG 08:00
PROVIDERS: ATTEND Orthopaedic Surgery
DX: S82.62XD Displaced fracture of lateral malleolus of left fibula, subsequent encounter for closed fracture with routine healing (principal); S82.841D Displaced bimalleolar fracture of right lower leg, subsequent encounter for closed fracture with routine healing

== ENCOUNTER → 2022-05-17 | Outpatient (CLI) | payer MEDICARE, OTHER ==
[~2022-05-17] MED LIST changes: +ACET650T15 PO; +META28.32 PO; +PROA1AER2 IN
== END ==
LOC: M LABSMTC 10:18
PROVIDERS: ATTEND Anesthesiology
DX: Z01.812 Encounter for preprocedural laboratory examination (principal); Z20.822 Contact with and (suspected) exposure to COVID-19

== ENCOUNTER 2022-05-20 07:59 | Day surgery (SDC) | payer MEDICARE, OTHER ==
[~2022-05-20] VITALS: Ht 167.6 cm; Wt 92.5 kg
[~2022-05-20 07:59] MED LIST changes: +BSS IRRIG/VANCO(10MG)/TOBRA(5MG)/EPINEPH(1:1000-0.5CC)500ML BAG-ORONLY IR ONE; +CEFUROXIME 1MG/0.1ML INTRACAMERAL INJ As Ordered ONE; +CYCLOPENTOLATE 1% OPHTH SOLN 2ML BTL OD SCH; +LIDOCAINE 1% SDV 5ML VIAL As Ordered ONE; +LIDOCAINE 3.5 % 1ML OPHTH TOPICAL GEL OU ONE; +MIDAZOLAM INJ 2MG/2ML VIAL (J2250 PER 1MG) As Ordered ONE; +OFLOXACIN 0.3 % (OCUFLOX) OPTH SOL 5ML OD ONE; +PHENYLEPHRINE 10% OPHTH SOL 5ML OD PRN; +PHENYLEPHRINE 2.5% OPHTH SOL 2ML OD SCH; +TROPICAMIDE 1% OPHTH SOLN 15ML OD SCH; +fentaNYL 100 MCG/2 ML INJECTION As Ordered ONE
[2022-05-20 09:50] VITALS: BP 121/79
== END 2022-05-20 10:02 | disposition home or self-care (01) ==
LOC: M SDC 07:59
PROVIDERS: ATTEND Ophthalmology
DX: H25.11 Age-related nuclear cataract, right eye (principal); I10 Essential (primary) hypertension; E78.5 Hyperlipidemia, unspecified; E10.9 Type 1 diabetes mellitus without complications; D64.9 Anemia, unspecified; Z90.49 Acquired absence of other specified parts of digestive tract; Z90.710 Acquired absence of both cervix and uterus; Z86.73 Personal history of transient ischemic attack (TIA), and cerebral infarction without residual deficits; Z88.1 Allergy status to other antibiotic agents; Z79.899 Other long term (current) drug therapy; G47.9 Sleep disorder, unspecified; F32.A Depression, unspecified; F41.9 Anxiety disorder, unspecified; Z86.718 Personal history of other venous thrombosis and embolism
CPT/HCPCS: 66984; J0697; J2250; J3010; V2632

== ENCOUNTER → 2022-05-24 | Outpatient (CLI) | payer MEDICARE, OTHER ==
[~2022-05-24] MED LIST changes: -BSS IRRIG/VANCO(10MG)/TOBRA(5MG)/EPINEPH(1:1000-0.5CC)500ML BAG-ORONLY IR ONE; -CEFUROXIME 1MG/0.1ML INTRACAMERAL INJ As Ordered ONE; -CYCLOPENTOLATE 1% OPHTH SOLN 2ML BTL OD SCH; -LIDOCAINE 1% SDV 5ML VIAL As Ordered ONE; -LIDOCAINE 3.5 % 1ML OPHTH TOPICAL GEL OU ONE; -MIDAZOLAM INJ 2MG/2ML VIAL (J2250 PER 1MG) As Ordered ONE; -OFLOXACIN 0.3 % (OCUFLOX) OPTH SOL 5ML OD ONE; -PHENYLEPHRINE 10% OPHTH SOL 5ML OD PRN; -PHENYLEPHRINE 2.5% OPHTH SOL 2ML OD SCH; -TROPICAMIDE 1% OPHTH SOLN 15ML OD SCH; -fentaNYL 100 MCG/2 ML INJECTION As Ordered ONE
[2022-05-24 12:33] LABS: BASO # 0.1 10^3/uL (0.0-0.2); BASO % 0.7 % (0.0-1.0); EOS # 0.4 10^3/uL (0.0-0.5); EOS % 4.4 % (0.0-3.0); HEMATOCRIT 45.5 % (36.0-47.0); HEMOGLOBIN 14.2 g/dl (12.0-15.5); LYMPH # 2.5 10^3/uL (1.5-5.0); LYMPH % 27.2 % (24.0-44.0); MEAN CORPUSCULAR HEMOGLOBIN 26.2 pg (27.0-33.0); MEAN CORPUSCULAR HGB CONC 31.2 g/dl (32.0-36.5); MEAN CORPUSCULAR VOLUME 83.8 fl (80.0-96.0); MONO # 0.8 10^3/uL (0.0-0.8); MONO % 8.4 % (2.0-8.0); NEUTROPHILS # 5.4 10^3/uL (1.5-8.5); NEUTROPHILS % 58.9 % (36.0-66.0); PLATELET COUNT, AUTOMATED 291 10^3/uL (150-450); RED BLOOD COUNT 5.43 10^6/uL (4.00-5.40); WHITE BLOOD COUNT 9.1 10^3/uL (4.0-10.0)
[2022-05-24 12:48] LABS: CREATININE, URINE 91.7 MG/DL
[2022-05-24 12:54] LABS: MAGNESIUM LEVEL 1.9 MG/DL (1.8-2.4)
[2022-05-24 12:56] LABS: TOTAL 25(OH) VITAMIN D 50.5 NG/ML (20.0-100.0)
[2022-05-24 14:07] LABS: ALBUMIN 3.8 G/DL (3.2-5.2); ALKALINE PHOSPHATASE 135 U/L (46-116); ALT/SGPT 28 U/L (7.0-40); AST/SGOT 22 U/L (<34); BILIRUBIN,TOTAL 0.6 MG/DL (0.3-1.2); BLOOD UREA NITROGEN 18 MG/DL (9-23); CARBON DIOXIDE LEVEL 27 MMOL/L (20-31); CHLORIDE LEVEL 107 MMOL/L (98-107); CHOLESTEROL LEVEL 138 MG/DL (<200); CHOLESTEROL RISK RATIO 2.96 (<5); CREATININE FOR GFR 0.91 MG/DL (0.55-1.30); GLOMERULAR FILTRATION RATE > 60.0 (>45); GLUCOSE, FASTING 112 MG/DL (74-106); HDL CHOLESTEROL 46.5 MG/DL (>40); LDL CHOLESTEROL 54.1 MG/DL (<100); NON-HDL-C 92 MG/DL; POTASSIUM SERUM 4.6 MMOL/L (3.5-5.1); SODIUM LEVEL 143 MMOL/L (136-145); TOTAL PROTEIN 7.1 G/DL (5.7-8.2); TRIGLYCERIDES LEVEL 187 MG/DL (<150)
[2022-05-24 14:10] LABS: HEMOGLOBIN A1c 6.8 % (4.0-6.0)
== END ==
LOC: M WUC 08:59
PROVIDERS: ATTEND Nurse Practitioner Family
DX: E11.29 Type 2 diabetes mellitus with other diabetic kidney complication (principal); I10 Essential (primary) hypertension; E55.9 Vitamin D deficiency, unspecified; Z79.899 Other long term (current) drug therapy

== ENCOUNTER → 2022-05-25 | Outpatient (CLI) | payer MEDICARE, OTHER | LOC: M WHC 08:58 | PROVIDERS: ATTEND Internal Medicine | DX: Z78.0 Asymptomatic menopausal state (principal) ==

== ENCOUNTER → 2022-07-21 | Outpatient (CLI) | payer MEDICARE, OTHER | LOC: M SOG 07:58 | PROVIDERS: ATTEND Orthopaedic Surgery | DX: S82.62XD Displaced fracture of lateral malleolus of left fibula, subsequent encounter for closed fracture with routine healing (principal); S82.841D Displaced bimalleolar fracture of right lower leg, subsequent encounter for closed fracture with routine healing; Z53.8 Procedure and treatment not carried out for other reasons ==

== ENCOUNTER → 2022-08-17 | Outpatient (CLI) | payer MEDICARE, OTHER | LOC: M SOG 08:08 | PROVIDERS: ATTEND Orthopaedic Surgery | DX: S82.62XD Displaced fracture of lateral malleolus of left fibula, subsequent encounter for closed fracture with routine healing (principal); S82.841D Displaced bimalleolar fracture of right lower leg, subsequent encounter for closed fracture with routine healing; Y93.9 Activity, unspecified; Y92.9 Unspecified place or not applicable ==

== ENCOUNTER 2022-09-30 11:00 | Emergency (ER) | payer MEDICARE, OTHER ==
[~2022-09-30] VITALS: Ht 167.6 cm; Wt 94.5 kg
[2022-09-30] MEDS ORDERED: NS 1,000 ML IV ONE (11:40)
[2022-09-30 12:01] LABS: BASO # 0.1 10^3/uL (0.0-0.2); BASO % 1.1 % (0.0-1.0); EOS # 0.3 10^3/uL (0.0-0.5); EOS % 4.6 % (0.0-3.0); HEMATOCRIT 43.7 % (36.0-47.0); HEMOGLOBIN 14.5 g/dl (12.0-15.5); LYMPH # 2.1 10^3/uL (1.5-5.0); LYMPH % 27.6 % (24.0-44.0); MEAN CORPUSCULAR HEMOGLOBIN 28.3 pg (27.0-33.0); MEAN CORPUSCULAR HGB CONC 33.2 g/dl (32.0-36.5); MEAN CORPUSCULAR VOLUME 85.4 fl (80.0-96.0); MONO # 0.9 10^3/uL (0.0-0.8); MONO % 12.1 % (2.0-8.0); NEUTROPHILS % 53.9 % (36.0-66.0); PLATELET COUNT, AUTOMATED 258 10^3/uL (150-450); RED BLOOD COUNT 5.12 10^6/uL (4.00-5.40); WHITE BLOOD COUNT 7.4 10^3/uL (4.0-10.0)
[2022-09-30] MEDS ORDERED: cefTRIAXone SOD 1 GM in D5W MINI-BAG PLUS 50 ML IV ONE (12:40)
[2022-09-30 12:43] LABS: LIPASE 73 U/L (12-53)
[2022-09-30 12:45] LABS: ALBUMIN 3.4 G/DL (3.2-5.2); ALKALINE PHOSPHATASE 123 U/L (46-116); ALT/SGPT 26 U/L (7.0-40); AST/SGOT 23 U/L (<34); BILIRUBIN,DIRECT 0.2 MG/DL (<0.4); BILIRUBIN,TOTAL 0.7 MG/DL (0.3-1.2); BLOOD UREA NITROGEN 21 MG/DL (9-23); CALCIUM LEVEL 9.3 MG/DL (8.3-10.6); CARBON DIOXIDE LEVEL 25 MMOL/L (20-31); CHLORIDE LEVEL 107 MMOL/L (98-107); CREATININE FOR GFR 0.87 MG/DL (0.55-1.30); GLOMERULAR FILTRATION RATE > 60.0 (>45); GLUCOSE, FASTING 186 MG/DL (74-106); POTASSIUM SERUM 4.8 MMOL/L (3.5-5.1); SODIUM LEVEL 139 MMOL/L (136-145)
[2022-09-30] MEDS ORDERED: CEFD300C41 PO (15:09)
[2022-09-30 15:15] VITALS: BP 120/73
== END 2022-09-30 15:44 | disposition home or self-care (01) ==
LOC: M ED 11:00
DX: N39.0 Urinary tract infection, site not specified (principal); I10 Essential (primary) hypertension; N18.30 Chronic kidney disease, stage 3 unspecified; E11.9 Type 2 diabetes mellitus without complications; F41.9 Anxiety disorder, unspecified; F32.9 Major depressive disorder, single episode, unspecified; Z86.73 Personal history of transient ischemic attack (TIA), and cerebral infarction without residual deficits; Z88.8 Allergy status to other drugs, medicaments and biological substances; Z88.1 Allergy status to other antibiotic agents; Z79.82 Long term (current) use of aspirin; Z79.899 Other long term (current) drug therapy; Z79.4 Long term (current) use of insulin
CPT/HCPCS: 80048; 80076; 81001; 83690; 85025; 87088; 87186; 96365; 99284; J0696

== ENCOUNTER → 2022-10-04 | Outpatient (REF) | payer MEDICARE, OTHER ==
[~2022-10-04] MED LIST changes: +CEFD300C41 PO
== END ==
LOC: M LAB REF 13:23
PROVIDERS: ATTEND Physician Assistant Medical
DX: R19.7 Diarrhea, unspecified (principal)

== ENCOUNTER 2022-10-11 08:51 | Emergency (ER) | payer MEDICARE, OTHER ==
[~2022-10-11] VITALS: Ht 167.6 cm; Wt 95.5 kg
[2022-10-11 08:56] VITALS: BP 131/72
[2022-10-11] MEDS ORDERED: TRAM50TA2 (09:06)
[2022-10-11] MEDS ORDERED: OXYC7.5T3 (09:06)
[2022-10-11] MEDS ORDERED: LIDOCAINE 5% (LIDODERM) PATCH TD ONE (09:30)
[2022-10-11] MEDS ORDERED: diazePAM 2 MG TAB PO ONE (10:35)
[2022-10-11] MEDS ORDERED: VALI2TAB PO (10:52)
== END 2022-10-11 11:16 | disposition home or self-care (01) ==
LOC: M ED 08:51 → EDBD 08:51 → M ED 11:16
DX: M47.817 Spondylosis without myelopathy or radiculopathy, lumbosacral region (principal); Z88.8 Allergy status to other drugs, medicaments and biological substances; Z88.1 Allergy status to other antibiotic agents; Z79.82 Long term (current) use of aspirin; Z79.899 Other long term (current) drug therapy; Z79.4 Long term (current) use of insulin

== ENCOUNTER → 2022-11-19 | Outpatient (CLI) | payer MEDICARE, OTHER ==
[~2022-11-19] MED LIST changes: +OXYC7.5T3; +TRAM50TA2; +VALI2TAB PO
[2022-11-19 14:29] LABS: BASO % 0.5 % (0.0-1.0); EOS # 0.1 10^3/uL (0.0-0.5); EOS % 1.5 % (0.0-3.0); HEMATOCRIT 45.1 % (36.0-47.0); HEMOGLOBIN 14.7 g/dl (12.0-15.5); LYMPH % 25.3 % (24.0-44.0); MEAN CORPUSCULAR HEMOGLOBIN 28.1 pg (27.0-33.0); MEAN CORPUSCULAR HGB CONC 32.6 g/dl (32.0-36.5); MEAN CORPUSCULAR VOLUME 86.1 fl (80.0-96.0); MONO # 0.7 10^3/uL (0.0-0.8); MONO % 8.8 % (2.0-8.0); NEUTROPHILS # 4.9 10^3/uL (1.5-8.5); NEUTROPHILS % 63.4 % (36.0-66.0); PLATELET COUNT, AUTOMATED 235 10^3/uL (150-450); RED BLOOD COUNT 5.24 10^6/uL (4.00-5.40); WHITE BLOOD COUNT 7.8 10^3/uL (4.0-10.0)
[2022-11-19 14:36] LABS: HEMOGLOBIN A1c 7.3 % (4.0-6.0)
[2022-11-19 14:57] LABS: CREATININE, URINE 101.7 MG/DL
[2022-11-19 14:58] LABS: MAU/CREAT RATIO 17.6 MCG/MG (0.0-30.0)
[2022-11-19 15:01] LABS: ALBUMIN 3.8 G/DL (3.2-5.2); ALKALINE PHOSPHATASE 121 U/L (46-116); ALT/SGPT 47 U/L (7.0-40); AST/SGOT 21 U/L (<34); BLOOD UREA NITROGEN 14 MG/DL (9-23); CALCIUM LEVEL 9.8 MG/DL (8.3-10.6); CARBON DIOXIDE LEVEL 26 MMOL/L (20-31); CHLORIDE LEVEL 107 MMOL/L (98-107); CHOLESTEROL LEVEL 118 MG/DL (<200); CHOLESTEROL RISK RATIO 3.24 (<5); CREATININE FOR GFR 0.84 MG/DL (0.55-1.30); GLOMERULAR FILTRATION RATE > 60.0 (>45); GLUCOSE, FASTING 151 MG/DL (74-106); HDL CHOLESTEROL 36.4 MG/DL (>40); LDL CHOLESTEROL 42.8 MG/DL (<100); NON-HDL-C 81.6 MG/DL; POTASSIUM SERUM 4.6 MMOL/L (3.5-5.1); SODIUM LEVEL 142 MMOL/L (136-145); TRIGLYCERIDES LEVEL 194 MG/DL (<150)
[2022-11-19 15:02] LABS: TOTAL 25(OH) VITAMIN D 41.5 NG/ML (20.0-100.0)
== END ==
LOC: M WUC 09:42
PROVIDERS: ATTEND Nurse Practitioner Family
DX: E11.29 Type 2 diabetes mellitus with other diabetic kidney complication (principal); I10 Essential (primary) hypertension; E78.5 Hyperlipidemia, unspecified; E55.9 Vitamin D deficiency, unspecified; Z79.899 Other long term (current) drug therapy

== ENCOUNTER 2023-03-25 19:11 | Emergency (ER) | payer MEDICARE, MEDICAID ==
[~2023-03-25] VITALS: Ht 162.6 cm; Wt 93.6 kg
[~2023-03-25 19:11] MED LIST changes: -CEFD300C41 PO; +CEFD300C42 PO; -GABA-283 PO; +GABA-284 PO; -OXYB5TAB10 PO; +OXYB5TAB11 PO; -ROPI2TAB3 PO; +ROPI2TAB46 PO
[2023-03-25] MEDS ORDERED: NS 1,000 ML IV ONE (22:40)
[2023-03-25 23:11] VITALS: TEMP 98.8
[2023-03-25 23:15] VITALS: BP 158/68
[2023-03-25] MEDS ORDERED: MIRA3350 PO (23:24)
[2023-03-25] MEDS ORDERED: MAGNESIUM CITRATE 300ML BTL PO ONE (23:25)
[2023-03-25 23:26] VITALS: O2SAT 99
== END 2023-03-25 23:33 | disposition home or self-care (01) ==
LOC: M ED 19:11
DX: K59.00 Constipation, unspecified (principal); E11.9 Type 2 diabetes mellitus without complications; I10 Essential (primary) hypertension; K21.9 Gastro-esophageal reflux disease without esophagitis; E78.5 Hyperlipidemia, unspecified; Z86.73 Personal history of transient ischemic attack (TIA), and cerebral infarction without residual deficits; Z79.82 Long term (current) use of aspirin; Z79.4 Long term (current) use of insulin; Z79.899 Other long term (current) drug therapy; Z88.0 Allergy status to penicillin; Z88.8 Allergy status to other drugs, medicaments and biological substances; Z88.1 Allergy status to other antibiotic agents

== ENCOUNTER → 2023-03-29 | Outpatient (CLI) | payer MEDICARE, MEDICAID ==
[~2023-03-29] MED LIST changes: +MIRA3350 PO
[2023-03-29 12:33] LABS: ALBUMIN 3.7 G/DL (3.2-5.2); ALKALINE PHOSPHATASE 100 U/L (46-116); ALT/SGPT 55 U/L (7.0-40); AST/SGOT 32 U/L (<34); BILIRUBIN,TOTAL 0.5 MG/DL (0.3-1.2); BLOOD UREA NITROGEN 15 MG/DL (9-23); CALCIUM LEVEL 9.1 MG/DL (8.3-10.6); CARBON DIOXIDE LEVEL 24 MMOL/L (20-31); CHLORIDE LEVEL 106 MMOL/L (98-107); CREATININE FOR GFR 0.88 MG/DL (0.55-1.30); GLOMERULAR FILTRATION RATE > 60.0 (>45); GLUCOSE, FASTING 157 MG/DL (74-106); POTASSIUM SERUM 4.2 MMOL/L (3.5-5.1); SODIUM LEVEL 140 MMOL/L (136-145); TOTAL PROTEIN 6.7 G/DL (5.7-8.2); VITAMIN B12 LEVEL 972 PG/ML (211-911)
== END ==
LOC: M WUC 08:06
PROVIDERS: ATTEND Nurse Practitioner Family
DX: E11.29 Type 2 diabetes mellitus with other diabetic kidney complication (principal); G62.9 Polyneuropathy, unspecified

== ENCOUNTER 2023-05-05 12:51 | Emergency (ER) | payer MEDICARE, MEDICAID ==
[~2023-05-05] VITALS: Ht 167.6 cm; Wt 93.6 kg
[2023-05-05] MEDS ORDERED: NS 1,000 ML IV ONE (13:45)
[2023-05-05] MEDS ORDERED: ISOVUE-370 76% 100ML VIAL As Ordered ONE (14:29)
[2023-05-05 14:36] LABS: BASO # 0.1 10^3/uL (0.0-0.2); BASO % 0.3 % (0.0-1.0); EOS % 0.2 % (0.0-3.0); HEMATOCRIT 44.3 % (36.0-47.0); HEMOGLOBIN 15.2 g/dl (12.0-15.5); LYMPH # 1.1 10^3/uL (1.5-5.0); LYMPH % 5.7 % (24.0-44.0); MEAN CORPUSCULAR HEMOGLOBIN 29.1 pg (27.0-33.0); MEAN CORPUSCULAR HGB CONC 34.3 g/dl (32.0-36.5); MEAN CORPUSCULAR VOLUME 84.7 fl (80.0-96.0); MONO # 1.2 10^3/uL (0.0-0.8); NEUTROPHILS % 87.3 % (36.0-66.0); PLATELET COUNT, AUTOMATED 221 10^3/uL (150-450); RED BLOOD COUNT 5.23 10^6/uL (4.00-5.40); WHITE BLOOD COUNT 19.4 10^3/uL (4.0-10.0)
[2023-05-05 14:47] LABS: INR 1.03; PROTHROMBIN TIME 13.2 SECONDS (12.5-14.5)
[2023-05-05 14:48] LABS: PARTIAL THROMBOPLASTIN TIME 23.7 SECONDS (24.8-34.2)
[2023-05-05 15:04] LABS: ALBUMIN 3.9 G/DL (3.2-5.2); ALKALINE PHOSPHATASE 117 U/L (46-116); ALT/SGPT 69 U/L (7.0-40); AST/SGOT 66 U/L (<34); BILIRUBIN,DIRECT 0.2 MG/DL (<0.4); LIPASE 26 U/L (12-53); TOTAL PROTEIN 7.1 G/DL (5.7-8.2)
[2023-05-05 16:15] LABS: BLOOD UREA NITROGEN 16 MG/DL (9-23); CALCIUM LEVEL 8.9 MG/DL (8.3-10.6); CARBON DIOXIDE LEVEL 18 MMOL/L (20-31); CHLORIDE LEVEL 104 MMOL/L (98-107); GLOMERULAR FILTRATION RATE > 60.0 (>45); GLUCOSE, FASTING 248 MG/DL (74-106); POTASSIUM SERUM 5.4 MMOL/L (3.5-5.1); SODIUM LEVEL 139 MMOL/L (136-145)
[2023-05-05 17:33] VITALS: BP 151/66; TEMP 98.7; O2SAT 99
[2023-05-05] MEDS ORDERED: COLA100C5 PO (17:41)
[2023-05-05] MEDS ORDERED: SENN1TAB41 PO (17:41)
== END 2023-05-05 17:53 | disposition home or self-care (01) ==
LOC: M ED 12:51
DX: K56.41 Fecal impaction (principal); K52.89 Other specified noninfective gastroenteritis and colitis; E11.40 Type 2 diabetes mellitus with diabetic neuropathy, unspecified; I10 Essential (primary) hypertension; N18.2 Chronic kidney disease, stage 2 (mild); K21.9 Gastro-esophageal reflux disease without esophagitis; E78.5 Hyperlipidemia, unspecified; M48.00 Spinal stenosis, site unspecified; Z86.73 Personal history of transient ischemic attack (TIA), and cerebral infarction without residual deficits; F41.9 Anxiety disorder, unspecified; F32.A Depression, unspecified; Z86.718 Personal history of other venous thrombosis and embolism; E66.9 Obesity, unspecified; Z79.82 Long term (current) use of aspirin; Z79.4 Long term (current) use of insulin; Z79.899 Other long term (current) drug therapy; Z88.0 Allergy status to penicillin; Z88.1 Allergy status to other antibiotic agents; Z88.8 Allergy status to other drugs, medicaments and biological substances
CPT/HCPCS: 74177; 80047; 80048; 80076; 81001; 83690; 85025; 85610; 85730; 87507; 99284; Q9967

== ENCOUNTER → 2023-07-26 | Outpatient (CLI) | payer MEDICARE, MEDICAID, OTHER ==
[~2023-07-26] MED LIST changes: -ASPI-161 PO; +ASPI-615 PO; +CEFD1CAP9 PO; -CEFD300C42 PO; +COLA100C5 PO; -OXYB5TAB11 PO; +OXYB5TAB14 PO; +SENN1TAB41 PO
[2023-07-26 11:46] LABS: BASO # 0.1 10^3/uL (0.0-0.2); BASO % 0.8 % (0.0-1.0); EOS # 0.4 10^3/uL (0.0-0.5); EOS % 4.7 % (0.0-3.0); HEMATOCRIT 45.1 % (36.0-47.0); HEMOGLOBIN 14.6 g/dl (12.0-15.5); LYMPH # 2.4 10^3/uL (1.5-5.0); LYMPH % 29.1 % (24.0-44.0); MEAN CORPUSCULAR HEMOGLOBIN 28.9 pg (27.0-33.0); MEAN CORPUSCULAR HGB CONC 32.4 g/dl (32.0-36.5); MEAN CORPUSCULAR VOLUME 89.1 fl (80.0-96.0); MONO # 0.7 10^3/uL (0.0-0.8); MONO % 8.8 % (2.0-8.0); NEUTROPHILS # 4.6 10^3/uL (1.5-8.5); PLATELET COUNT, AUTOMATED 243 10^3/uL (150-450); RED BLOOD COUNT 5.06 10^6/uL (4.00-5.40); WHITE BLOOD COUNT 8.3 10^3/uL (4.0-10.0)
[2023-07-26 12:09] LABS: ALBUMIN 3.8 G/DL (3.2-5.2); ALKALINE PHOSPHATASE 141 U/L (46-116); ALT/SGPT 44 U/L (7.0-40); AST/SGOT 15 U/L (<34); BILIRUBIN,TOTAL 0.4 MG/DL (0.3-1.2); BLOOD UREA NITROGEN 24 MG/DL (9-23); CALCIUM LEVEL 8.7 MG/DL (8.3-10.6); CARBON DIOXIDE LEVEL 24 MMOL/L (20-31); CHLORIDE LEVEL 112 MMOL/L (98-107); CHOLESTEROL LEVEL 146 MG/DL (<200); CHOLESTEROL RISK RATIO 3.25 (<5); CREATININE FOR GFR 0.85 MG/DL (0.55-1.30); GLOMERULAR FILTRATION RATE > 60.0 (>45); GLUCOSE, FASTING 235 MG/DL (74-106); HDL CHOLESTEROL 44.9 MG/DL (>40); LDL CHOLESTEROL 70.5 MG/DL (<100); NON-HDL-C 101.1 MG/DL; POTASSIUM SERUM 4.9 MMOL/L (3.5-5.1); SODIUM LEVEL 141 MMOL/L (136-145); TOTAL PROTEIN 6.9 G/DL (5.7-8.2); TRIGLYCERIDES LEVEL 153 MG/DL (<150)
== END | disposition home or self-care (01) ==
LOC: M WUC 08:10
PROVIDERS: ATTEND Nurse Practitioner Family
DX: E11.29 Type 2 diabetes mellitus with other diabetic kidney complication (principal); E55.9 Vitamin D deficiency, unspecified; E78.5 Hyperlipidemia, unspecified

== ENCOUNTER → 2023-09-12 | Outpatient (CLI) | payer MEDICARE, MEDICAID ==
[~2023-09-12] MED LIST changes: -SENN1TAB41 PO; +SENN1TAB85 PO
== END ==
LOC: M PAIN 13:00
PROVIDERS: ATTEND Nurse Practitioner Family
DX: M51.16 Intervertebral disc disorders with radiculopathy, lumbar region (principal); E11.9 Type 2 diabetes mellitus without complications; I10 Essential (primary) hypertension; E78.5 Hyperlipidemia, unspecified; K76.0 Fatty (change of) liver, not elsewhere classified; Z79.02 Long term (current) use of antithrombotics/antiplatelets; Z79.1 Long term (current) use of non-steroidal anti-inflammatories (NSAID); Z79.4 Long term (current) use of insulin; Z79.82 Long term (current) use of aspirin; Z79.84 Long term (current) use of oral hypoglycemic drugs; Z79.899 Other long term (current) drug therapy; Z88.1 Allergy status to other antibiotic agents; Z88.2 Allergy status to sulfonamides; Z88.3 Allergy status to other anti-infective agents; Z88.8 Allergy status to other drugs, medicaments and biological substances

== ENCOUNTER → 2023-10-11 | Outpatient (CLI) | payer MEDICARE, MEDICAID | LOC: M RAD 15:34 | PROVIDERS: ATTEND Nurse Practitioner Family | DX: M51.16 Intervertebral disc disorders with radiculopathy, lumbar region (principal) ==

== ENCOUNTER → 2023-12-01 | Outpatient (CLI) | payer MEDICARE, MEDICAID | LOC: M PAIN 16:30 | PROVIDERS: ATTEND Anesthesiology | DX: M48.062 Spinal stenosis, lumbar region with neurogenic claudication (principal); M51.16 Intervertebral disc disorders with radiculopathy, lumbar region; M79.10 Myalgia, unspecified site; M79.18 Myalgia, other site; G89.29 Other chronic pain; E11.42 Type 2 diabetes mellitus with diabetic polyneuropathy; I10 Essential (primary) hypertension; E78.5 Hyperlipidemia, unspecified; F41.9 Anxiety disorder, unspecified; F32.A Depression, unspecified; K21.9 Gastro-esophageal reflux disease without esophagitis; E55.9 Vitamin D deficiency, unspecified; M06.9 Rheumatoid arthritis, unspecified; Z79.891 Long term (current) use of opiate analgesic; Z79.82 Long term (current) use of aspirin; Z79.02 Long term (current) use of antithrombotics/antiplatelets; Z79.4 Long term (current) use of insulin; Z79.899 Other long term (current) drug therapy; Z88.0 Allergy status to penicillin; Z88.2 Allergy status to sulfonamides; Z88.8 Allergy status to other drugs, medicaments and biological substances ==

== ENCOUNTER 2023-12-22 13:28 | Emergency (ER) | payer MEDICAID, MEDICARE, OTHER ==
[~2023-12-22] VITALS: Ht 162.6 cm; Wt 90.9 kg
[2023-12-22 14:48] LABS: BASO # 0.1 10^3/uL (0.0-0.2); BASO % 0.6 % (0.0-1.0); EOS # 0.2 10^3/uL (0.0-0.5); EOS % 2.3 % (0.0-3.0); HEMATOCRIT 44.2 % (36.0-47.0); HEMOGLOBIN 14.5 g/dl (12.0-15.5); LYMPH # 1.7 10^3/uL (1.5-5.0); LYMPH % 19.3 % (24.0-44.0); MEAN CORPUSCULAR HEMOGLOBIN 28.2 pg (27.0-33.0); MEAN CORPUSCULAR HGB CONC 32.8 g/dl (32.0-36.5); MONO # 0.7 10^3/uL (0.0-0.8); MONO % 7.8 % (2.0-8.0); NEUTROPHILS # 6.2 10^3/uL (1.5-8.5); NEUTROPHILS % 69.8 % (36.0-66.0); PLATELET COUNT, AUTOMATED 240 10^3/uL (150-450); RED BLOOD COUNT 5.14 10^6/uL (4.00-5.40); WHITE BLOOD COUNT 8.8 10^3/uL (4.0-10.0)
[2023-12-22 15:12] LABS: ALBUMIN 3.7 G/DL (3.2-5.2); BILIRUBIN,DIRECT 0.2 MG/DL (<0.4); BILIRUBIN,TOTAL 0.6 MG/DL (0.3-1.2); TOTAL PROTEIN 6.9 G/DL (5.7-8.2)
[2023-12-22] MEDS ORDERED: ISOVUE-370 76% 100ML VIAL As Ordered ONE (16:41)
[2023-12-22] MEDS: NS 1,000 ML IV ONE (16:43)
[2023-12-22 18:49] VITALS: BP 135/60; TEMP 96.9; O2SAT 98
== END 2023-12-22 19:04 | disposition home or self-care (01) ==
LOC: EDBD 13:28 → M ED 13:28
DX: R10.84 Generalized abdominal pain (principal); R19.7 Diarrhea, unspecified; E11.9 Type 2 diabetes mellitus without complications; I12.9 Hypertensive chronic kidney disease with stage 1 through stage 4 chronic kidney disease, or unspecified chronic kidney disease; K21.9 Gastro-esophageal reflux disease without esophagitis; E78.5 Hyperlipidemia, unspecified; M48.00 Spinal stenosis, site unspecified; Z86.73 Personal history of transient ischemic attack (TIA), and cerebral infarction without residual deficits; Z86.718 Personal history of other venous thrombosis and embolism; Z86.16 Personal history of COVID-19; Z79.82 Long term (current) use of aspirin; Z79.4 Long term (current) use of insulin; Z79.899 Other long term (current) drug therapy; Z88.0 Allergy status to penicillin; Z88.8 Allergy status to other drugs, medicaments and biological substances
CPT/HCPCS: 71046; 74177; 80047; 80076; 83690; 85025; 87507; 96360; 99284; Q9967

== ENCOUNTER → 2024-01-04 | Outpatient (CLI) | payer MEDICARE | LOC: M PAIN 15:00 | PROVIDERS: ATTEND Anesthesiology | DX: M51.16 Intervertebral disc disorders with radiculopathy, lumbar region (principal); I10 Essential (primary) hypertension; E11.29 Type 2 diabetes mellitus with other diabetic kidney complication; I69.30 Unspecified sequelae of cerebral infarction; N39.46 Mixed incontinence; E11.65 Type 2 diabetes mellitus with hyperglycemia; M79.89 Other specified soft tissue disorders; Z79.02 Long term (current) use of antithrombotics/antiplatelets; Z79.4 Long term (current) use of insulin; Z79.82 Long term (current) use of aspirin; Z79.891 Long term (current) use of opiate analgesic; Z79.899 Other long term (current) drug therapy; Z88.1 Allergy status to other antibiotic agents; Z88.3 Allergy status to other anti-infective agents ==

== ENCOUNTER → 2024-01-24 | Outpatient (CLI) | payer MEDICARE ==
[2024-01-24 10:03] LABS: BASO # 0.1 10^3/uL (0.0-0.2); BASO % 0.8 % (0.0-1.0); EOS # 0.7 10^3/uL (0.0-0.5); EOS % 7.1 % (0.0-3.0); HEMATOCRIT 47.2 % (36.0-47.0); HEMOGLOBIN 15.5 g/dl (12.0-15.5); LYMPH # 2.8 10^3/uL (1.5-5.0); LYMPH % 28.1 % (24.0-44.0); MEAN CORPUSCULAR HEMOGLOBIN 28.4 pg (27.0-33.0); MEAN CORPUSCULAR HGB CONC 32.8 g/dl (32.0-36.5); MEAN CORPUSCULAR VOLUME 86.6 fl (80.0-96.0); MONO # 0.9 10^3/uL (0.0-0.8); MONO % 8.8 % (2.0-8.0); NEUTROPHILS # 5.5 10^3/uL (1.5-8.5); NEUTROPHILS % 54.6 % (36.0-66.0); PLATELET COUNT, AUTOMATED 250 10^3/uL (150-450); RED BLOOD COUNT 5.45 10^6/uL (4.00-5.40)
[2024-01-24 10:25] LABS: ALBUMIN 3.9 G/DL (3.2-5.2); ALKALINE PHOSPHATASE 126 U/L (46-116); ALT/SGPT 33 U/L (7.0-40); AST/SGOT 15 U/L (<34); BILIRUBIN,TOTAL 0.5 MG/DL (0.3-1.2); BLOOD UREA NITROGEN 20 MG/DL (9-23); CALCIUM LEVEL 10.4 MG/DL (8.3-10.6); CARBON DIOXIDE LEVEL 27 MMOL/L (20-31); CHLORIDE LEVEL 109 MMOL/L (98-107); CHOLESTEROL LEVEL 125 MG/DL (<200); CHOLESTEROL RISK RATIO 2.68 (<5); CREATININE FOR GFR 0.91 MG/DL (0.55-1.30); GLOMERULAR FILTRATION RATE > 60.0 (>45); GLUCOSE, FASTING 117 MG/DL (74-106); HDL CHOLESTEROL 46.6 MG/DL (>40); NON-HDL-C 78.4 MG/DL; POTASSIUM SERUM 4.8 MMOL/L (3.5-5.1); SODIUM LEVEL 141 MMOL/L (136-145); TOTAL PROTEIN 7.1 G/DL (5.7-8.2); TRIGLYCERIDES LEVEL 222 MG/DL (<150)
[2024-01-24 10:27] LABS: CREATININE, URINE 91.1 MG/DL
[2024-01-24 10:32] LABS: TOTAL 25(OH) VITAMIN D 47.6 NG/ML (20.0-100.0)
== END ==
LOC: M WUC 08:42
PROVIDERS: ATTEND Nurse Practitioner Family
DX: E11.29 Type 2 diabetes mellitus with other diabetic kidney complication (principal); I10 Essential (primary) hypertension; E78.5 Hyperlipidemia, unspecified; E55.9 Vitamin D deficiency, unspecified

== ENCOUNTER 2024-02-14 09:21 | Emergency (ER) | payer MEDICARE ==
[~2024-02-14] VITALS: Ht 165.1 cm; Wt 89.6 kg
[~2024-02-14 09:21] MED LIST changes: -TRAM50TA2
[2024-02-14 09:37] VITALS: BP 148/70; TEMP 98.6; O2SAT 96
[2024-02-14] MEDS ORDERED: THERTAB52 PO (12:47)
[2024-02-14] MEDS ORDERED: META0.52 PO (12:47)
== END 2024-02-14 11:09 | disposition left against medical advice (07) ==
LOC: M ED 09:21 → EDBD 09:21 → M ED 11:09
DX: Z53.21 Procedure and treatment not carried out due to patient leaving prior to being seen by health care provider (principal)

== ENCOUNTER 2024-02-17 09:09 | Day surgery (SDC) | payer MEDICAID, MEDICARE ==
[~2024-02-17] VITALS: Ht 165.1 cm; Wt 91.8 kg
[~2024-02-17 09:09] MED LIST changes: +META0.52 PO; +THERTAB52 PO
[2024-02-17] MEDS: NS 1,000 ML IV ONE (09:36)
[2024-02-17] MEDS ORDERED: LIDOCAINE 2% 100MG/5ML SDV (FOR ANES.) As Ordered ONE (10:09)
[2024-02-17] MEDS ORDERED: propofoL 200 MG/20 ML VIAL As Ordered ONE (10:09)
[2024-02-17] MEDS ORDERED: fentaNYL 100 MCG/2 ML INJECTION As Ordered ONE (10:10)
[2024-02-17 10:58] VITALS: TEMP 97.3
[2024-02-17 11:56] VITALS: BP 171/78; O2SAT 99
== END 2024-02-17 12:09 | disposition home or self-care (01) ==
LOC: M OPP 09:09
PROVIDERS: ATTEND Surgery
DX: K92.1 Melena (principal); K29.70 Gastritis, unspecified, without bleeding; K29.80 Duodenitis without bleeding; Z79.02 Long term (current) use of antithrombotics/antiplatelets; Z79.1 Long term (current) use of non-steroidal anti-inflammatories (NSAID); Z79.4 Long term (current) use of insulin; Z79.82 Long term (current) use of aspirin; Z79.891 Long term (current) use of opiate analgesic; Z88.1 Allergy status to other antibiotic agents; Z88.8 Allergy status to other drugs, medicaments and biological substances
CPT/HCPCS: 43239; 45378; 88305; J3010

== ENCOUNTER → 2024-04-03 | Outpatient (CLI) | payer MEDICARE ==
[~2024-04-03] MED LIST changes: +GABA-1172 PO; -GABA-282 PO
== END ==
LOC: M PAIN 15:30
PROVIDERS: ATTEND Nurse Practitioner Family
DX: M79.18 Myalgia, other site (principal); M51.16 Intervertebral disc disorders with radiculopathy, lumbar region; G89.29 Other chronic pain; E11.21 Type 2 diabetes mellitus with diabetic nephropathy; I10 Essential (primary) hypertension; E78.5 Hyperlipidemia, unspecified; F41.9 Anxiety disorder, unspecified; F32.A Depression, unspecified; K21.9 Gastro-esophageal reflux disease without esophagitis; E55.9 Vitamin D deficiency, unspecified; M06.9 Rheumatoid arthritis, unspecified; E11.42 Type 2 diabetes mellitus with diabetic polyneuropathy; Z79.891 Long term (current) use of opiate analgesic; Z79.02 Long term (current) use of antithrombotics/antiplatelets; Z79.82 Long term (current) use of aspirin; Z79.4 Long term (current) use of insulin; Z88.0 Allergy status to penicillin; Z88.8 Allergy status to other drugs, medicaments and biological substances
CPT/HCPCS: 82948; G0463

== ENCOUNTER → 2024-06-04 | Outpatient (CLI) | payer MEDICARE | LOC: M WHC 15:23 | PROVIDERS: ATTEND Nurse Practitioner Family | DX: Z12.31 Encounter for screening mammogram for malignant neoplasm of breast (principal) ==

== ENCOUNTER → 2024-07-25 | Outpatient (CLI) | payer OTHER ==
[2024-07-25 12:03] LABS: BASO # 0.1 10^3/uL (0.0-0.2); BASO % 0.7 % (0.0-1.0); EOS # 0.3 10^3/uL (0.0-0.5); EOS % 3.7 % (0.0-3.0); HEMATOCRIT 47.1 % (36.0-47.0); HEMOGLOBIN 14.9 g/dl (12.0-15.5); LYMPH # 1.9 10^3/uL (1.5-5.0); LYMPH % 25.4 % (24.0-44.0); MEAN CORPUSCULAR HEMOGLOBIN 27.8 pg (27.0-33.0); MEAN CORPUSCULAR HGB CONC 31.6 g/dl (32.0-36.5); MEAN CORPUSCULAR VOLUME 87.9 fl (80.0-96.0); MONO # 0.7 10^3/uL (0.0-0.8); MONO % 9.6 % (2.0-8.0); NEUTROPHILS # 4.5 10^3/uL (1.5-8.5); NEUTROPHILS % 60.2 % (36.0-66.0); PLATELET COUNT, AUTOMATED 227 10^3/uL (150-450); RED BLOOD COUNT 5.36 10^6/uL (4.00-5.40); WHITE BLOOD COUNT 7.4 10^3/uL (4.0-10.0)
[2024-07-25 12:40] LABS: CREATININE, URINE 102.8 MG/DL; MAU/CREAT RATIO 10.7 MCG/MG (0.0-30.0)
[2024-07-25 12:50] LABS: ALBUMIN 3.5 G/DL (3.2-5.2); ALKALINE PHOSPHATASE 130 U/L (35-104); ALT/SGPT 28 U/L (7.0-40); AST/SGOT 18 U/L (<34); BILIRUBIN,TOTAL 0.4 MG/DL (0.3-1.2); BLOOD UREA NITROGEN 16 MG/DL (9-23); CARBON DIOXIDE LEVEL 25 MMOL/L (20-31); CHLORIDE LEVEL 114 MMOL/L (98-107); CHOLESTEROL LEVEL 150 MG/DL (<200); CHOLESTEROL RISK RATIO 3.04 (<5); CREATININE FOR GFR 0.94 MG/DL (0.55-1.30); GLOMERULAR FILTRATION RATE > 60.0 (>45); GLUCOSE, FASTING 115 MG/DL (74-106); HDL CHOLESTEROL 49.3 MG/DL (>40); LDL CHOLESTEROL 51.5 MG/DL (<100); NON-HDL-C 100.7 MG/DL; POTASSIUM SERUM 4.4 MMOL/L (3.5-5.1); SODIUM LEVEL 147 MMOL/L (136-145); THYROID STIMULATING HORMONE 3.033 uIU/ML (0.55-4.78); TOTAL PROTEIN 6.8 G/DL (5.7-8.2); TRIGLYCERIDES LEVEL 246 MG/DL (<150)
[2024-07-25 12:54] LABS: HEMOGLOBIN A1c 6.7 % (4.0-6.0)
== END ==
LOC: M WUC 08:21
PROVIDERS: ATTEND Nurse Practitioner Family
DX: E78.5 Hyperlipidemia, unspecified (principal); E55.9 Vitamin D deficiency, unspecified; E11.29 Type 2 diabetes mellitus with other diabetic kidney complication

== ENCOUNTER 2024-11-01 11:10 | Emergency (ER) | payer MEDICARE, OTHER ==
[~2024-11-01] VITALS: Ht 167.6 cm; Wt 108.2 kg
[2024-11-01 11:58] LABS: BASO % 0.5 % (0.0-1.0); EOS # 0.4 10^3/uL (0.0-0.5); EOS % 4.7 % (0.0-3.0); HEMATOCRIT 40.9 % (36.0-47.0); HEMOGLOBIN 13.7 g/dl (12.0-15.5); LYMPH # 1.9 10^3/uL (1.5-5.0); LYMPH % 22.1 % (24.0-44.0); MEAN CORPUSCULAR HEMOGLOBIN 28.5 pg (27.0-33.0); MEAN CORPUSCULAR HGB CONC 33.5 g/dl (32.0-36.5); MEAN CORPUSCULAR VOLUME 85.2 fl (80.0-96.0); MONO # 0.7 10^3/uL (0.0-0.8); MONO % 8.5 % (2.0-8.0); NEUTROPHILS # 5.3 10^3/uL (1.5-8.5); NEUTROPHILS % 63.5 % (36.0-66.0); PLATELET COUNT, AUTOMATED 259 10^3/uL (150-450); WHITE BLOOD COUNT 8.4 10^3/uL (4.0-10.0)
[2024-11-01 12:11] LABS: CALCIUM LEVEL 9.3 MG/DL (8.3-10.6); CREATININE FOR GFR 0.93 MG/DL (0.55-1.30); GLOMERULAR FILTRATION RATE 68.6 (>45); POTASSIUM SERUM 4.7 MMOL/L (3.5-5.1)
[2024-11-01 12:15] LABS: INR 0.93; PARTIAL THROMBOPLASTIN TIME 25.7 SECONDS (24.8-34.2); PROTHROMBIN TIME 12.7 SECONDS (12.5-14.5)
[2024-11-01 13:30] VITALS: O2SAT 98
[2024-11-01 14:10] VITALS: BP 112/55; TEMP 98.2
== END 2024-11-01 14:17 | disposition home or self-care (01) ==
LOC: EDBD 11:10 → M ED 11:10
DX: S70.01XA Contusion of right hip, initial encounter (principal); W06.XXXA Fall from bed, initial encounter; Y92.009 Unspecified place in unspecified non-institutional (private) residence as the place of occurrence of the external cause; Y93.9 Activity, unspecified; Y99.9 Unspecified external cause status; E11.9 Type 2 diabetes mellitus without complications; F32.A Depression, unspecified; F41.9 Anxiety disorder, unspecified; E66.01 Morbid (severe) obesity due to excess calories; K21.9 Gastro-esophageal reflux disease without esophagitis; E78.5 Hyperlipidemia, unspecified; I10 Essential (primary) hypertension; Z86.718 Personal history of other venous thrombosis and embolism; Z79.82 Long term (current) use of aspirin; Z79.4 Long term (current) use of insulin; Z79.899 Other long term (current) drug therapy; Z88.0 Allergy status to penicillin; Z88.1 Allergy status to other antibiotic agents; Z88.8 Allergy status to other drugs, medicaments and biological substances

== ENCOUNTER → 2024-12-11 | Outpatient (CLI) | payer MEDICARE ==
[2024-12-11 13:39] LABS: BASO # 0.1 10^3/uL (0.0-0.2); BASO % 0.6 % (0.0-1.0); EOS # 0.2 10^3/uL (0.0-0.5); EOS % 2.6 % (0.0-3.0); LYMPH # 1.8 10^3/uL (1.5-5.0); LYMPH % 19.1 % (24.0-44.0); MONO # 0.8 10^3/uL (0.0-0.8); MONO % 8.1 % (2.0-8.0); NEUTROPHILS # 6.4 10^3/uL (1.5-8.5); NEUTROPHILS % 69.1 % (36.0-66.0); PLATELET COUNT, AUTOMATED 234 10^3/uL (150-450)
[2024-12-11 13:44] LABS: ALT/SGPT 30 U/L (7.0-40); AST/SGOT 19 U/L (<34); CALCIUM LEVEL 9.2 MG/DL (8.3-10.6); CARBON DIOXIDE LEVEL 24 MMOL/L (20-31); CHLORIDE LEVEL 106 MMOL/L (98-107); CHOLESTEROL LEVEL 166 MG/DL (<200); CHOLESTEROL RISK RATIO 3.78 (<5); CREATININE FOR GFR 0.87 MG/DL (0.55-1.30); GLOMERULAR FILTRATION RATE 74.4 (>45); MAGNESIUM LEVEL 1.5 MG/DL (1.8-2.4); NON-HDL-C 122.2 MG/DL; POTASSIUM SERUM 5.1 MMOL/L (3.5-5.1); SODIUM LEVEL 143 MMOL/L (136-145); TRIGLYCERIDES LEVEL 406 MG/DL (<150)
[2024-12-11 14:12] LABS: ESTIMATED AVERAGE GLUCOSE 166.0 MG/DL (60-110)
== END ==
LOC: M PLALAB 10:09
PROVIDERS: ATTEND Nurse Practitioner Family
DX: Z00.00 Encounter for general adult medical examination without abnormal findings (principal); E11.29 Type 2 diabetes mellitus with other diabetic kidney complication; I10 Essential (primary) hypertension; E55.9 Vitamin D deficiency, unspecified; E78.5 Hyperlipidemia, unspecified; R06.02 Shortness of breath

== ENCOUNTER → 2025-02-12 | Outpatient (CLI) | payer MEDICARE ==
[~2025-02-12] MED LIST changes: +ACET-1515 PO; -ACET650T15 PO
[2025-02-12 15:12] LABS: ALT/SGPT 35.0 U/L (7.0-40); AST/SGOT 31.0 U/L (<34); CALCIUM LEVEL 9.5 MG/DL (8.3-10.6); CARBON DIOXIDE LEVEL 22.0 MMOL/L (20-31); CHLORIDE LEVEL 111.0 MMOL/L (98-107); CREATININE FOR GFR 0.96 MG/DL (0.55-1.30); GLOMERULAR FILTRATION RATE 66.1 (>45); POTASSIUM SERUM 4.6 MMOL/L (3.5-5.1); SODIUM LEVEL 146.0 MMOL/L (136-145)
[2025-02-12 16:52] LABS: ESTIMATED AVERAGE GLUCOSE 169.0 MG/DL (60-110)
== END ==
LOC: M PLALAB 11:54
PROVIDERS: ATTEND Student in an Organized Health Care Education/Training Program
DX: Z01.818 Encounter for other preprocedural examination (principal); E11.21 Type 2 diabetes mellitus with diabetic nephropathy

== ENCOUNTER 2025-05-01 08:53 | Emergency (ER) | payer MEDICARE ==
[~2025-05-01] VITALS: Ht 162.6 cm; Wt 105.5 kg
[~2025-05-01 08:53] MED LIST changes: -SULF400T14 PO; +SULF400T15 PO
[2025-05-01 09:35] LABS: BASO # 0.0 10^3/uL (0.0-0.2); BASO % 0.4 % (0.0-1.0); EOS # 0.2 10^3/uL (0.0-0.5); EOS % 1.5 % (0.0-3.0); LYMPH # 1.5 10^3/uL (1.5-5.0); LYMPH % 14.1 % (24.0-44.0); MONO # 0.8 10^3/uL (0.0-0.8); MONO % 7.5 % (2.0-8.0); NEUTROPHILS # 7.8 10^3/uL (1.5-8.5); NEUTROPHILS % 75.8 % (36.0-66.0); PLATELET COUNT, AUTOMATED 253 10^3/uL (150-450)
[2025-05-01 09:52] LABS: ALT/SGPT 98.0 U/L (7.0-40); AST/SGOT 46.0 U/L (<34); CALCIUM LEVEL 8.7 MG/DL (8.3-10.6); CARBON DIOXIDE LEVEL 22.0 MMOL/L (20-31); CHLORIDE LEVEL 110.0 MMOL/L (98-107); CREATININE FOR GFR 0.76 MG/DL (0.55-1.30); GLOMERULAR FILTRATION RATE 86.9 (>45); POTASSIUM SERUM 3.7 MMOL/L (3.5-5.1); SODIUM LEVEL 144.0 MMOL/L (136-145)
[2025-05-01] MEDS ORDERED: ISOVUE-370 76% 100 ML VIAL As Ordered ONE (13:38)
[2025-05-01] MEDS: PANTOPRAZOLE 40MG VIAL IV ONE (13:43)
[2025-05-01 13:57] VITALS: TEMP 97.8
[2025-05-01] MEDS ORDERED: QUES4POW PO (16:15)
[2025-05-01] MEDS: CHOLESTYRAMINE 4 GM PWD PKT PO ONE (16:31)
[2025-05-01 16:37] VITALS: BP 145/64; O2SAT 94
== END 2025-05-01 16:30 | disposition home or self-care (01) ==
LOC: M ED 08:53 → EDBD 08:53 → M ED 16:30
DX: R19.7 Diarrhea, unspecified (principal); K21.9 Gastro-esophageal reflux disease without esophagitis; E11.9 Type 2 diabetes mellitus without complications; Z86.73 Personal history of transient ischemic attack (TIA), and cerebral infarction without residual deficits; Z86.718 Personal history of other venous thrombosis and embolism; R60.0 Localized edema; Z79.82 Long term (current) use of aspirin; Z79.4 Long term (current) use of insulin; Z79.899 Other long term (current) drug therapy; Z88.0 Allergy status to penicillin; Z88.1 Allergy status to other antibiotic agents; Z88.8 Allergy status to other drugs, medicaments and biological substances
CPT/HCPCS: 71045; 74177; 80048; 80076; 83690; 83880; 85025; 87507; 93970; 96374; 99285; J2470; Q9967

== ENCOUNTER → 2025-05-15 | Outpatient (CLI) | payer MEDICARE ==
[~2025-05-15] MED LIST changes: +CEFP200T PO; +DULO30CA9 PO; +FURO40TA2 PO; +MAGN400T33 PO; +QUES4POW PO; +ZONI50CA11 PO
[2025-05-15 14:11] LABS: CALCIUM LEVEL 9.7 MG/DL (8.3-10.6); CARBON DIOXIDE LEVEL 24.0 MMOL/L (20-31); CHLORIDE LEVEL 110.0 MMOL/L (98-107); CREATININE FOR GFR 0.85 MG/DL (0.55-1.30); GLOMERULAR FILTRATION RATE 76.0 (>45); MAGNESIUM LEVEL 1.8 MG/DL (1.8-2.4); POTASSIUM SERUM 4.3 MMOL/L (3.5-5.1); SODIUM LEVEL 146.0 MMOL/L (136-145)
== END ==
LOC: M WUC 08:30
PROVIDERS: ATTEND Nurse Practitioner Family
DX: I10 Essential (primary) hypertension (principal); R06.02 Shortness of breath

== ENCOUNTER 2025-05-16 10:07 | Emergency (ER) | payer MEDICARE ==
[~2025-05-16] VITALS: Ht 172.7 cm; Wt 103.6 kg
[~2025-05-16 10:07] MED LIST changes: -CEFP200T PO; -DULO30CA9 PO; -FURO40TA2 PO; -MAGN400T33 PO; -ZONI50CA11 PO
[2025-05-16] MEDS: ACETAMINOPHEN *IV* 1,000 MG in IV 1 EA IV ONE (12:53)
[2025-05-16 12:56] LABS: BASO # 0.0 10^3/uL (0.0-0.2); BASO % 0.4 % (0.0-1.0); EOS # 0.1 10^3/uL (0.0-0.5); EOS % 1.3 % (0.0-3.0); LYMPH # 1.6 10^3/uL (1.5-5.0); LYMPH % 20.3 % (24.0-44.0); MONO # 0.6 10^3/uL (0.0-0.8); MONO % 7.0 % (2.0-8.0); NEUTROPHILS # 5.6 10^3/uL (1.5-8.5); NEUTROPHILS % 70.7 % (36.0-66.0); PLATELET COUNT, AUTOMATED 241 10^3/uL (150-450)
[2025-05-16 13:30] LABS: ALT/SGPT 21.0 U/L (7.0-40); AST/SGOT 22.0 U/L (<34); CALCIUM LEVEL 9.4 MG/DL (8.3-10.6); CARBON DIOXIDE LEVEL 25.0 MMOL/L (20-31); CHLORIDE LEVEL 111.0 MMOL/L (98-107); CREATININE FOR GFR 0.82 MG/DL (0.55-1.30); GLOMERULAR FILTRATION RATE 79.3 (>45); MAGNESIUM LEVEL 1.8 MG/DL (1.8-2.4); POTASSIUM SERUM 4.1 MMOL/L (3.5-5.1); SODIUM LEVEL 146.0 MMOL/L (136-145)
[2025-05-16 14:02] LABS: KETONE, URINE AUTO RFX NEGATIVE (NEGATIVE); MUCUS, URINE RFX SMALL (NEGATIVE); RBC, URINE AUTO RFX 3 /HPF (0-3); SQUAM EPITHELIAL CELL UR AURFX 2 /HPF (0-6); WBC, URINE AUTO RFX 9 /HPF (0-3)
[2025-05-16] MEDS ORDERED: ISOVUE-370 76% 100 ML VIAL As Ordered ONE (14:28)
[2025-05-16 14:38] LABS: LEUKOCYTE ESTERASE UR AUTO RFX 1+ (NEGATIVE); NITRITE, URINE AUTO RFX POSITIVE (NEGATIVE)
[2025-05-16] MEDS: cefTRIAXone SOD 1 GM in DEXTROSE 5% (D5W) ADV/MINI-BAG 50 ML IV ONE (15:35)
[2025-05-16] MEDS ORDERED: TRAM50TA2 PO (16:05)
[2025-05-16] MEDS ORDERED: MAGN400T33 PO (16:08)
[2025-05-16] MEDS ORDERED: DULO30CA9 PO (16:08)
[2025-05-16] MEDS ORDERED: FURO40TA2 PO (16:08)
[2025-05-16] MEDS ORDERED: ZONI50CA11 PO ×2 (16:08)
[2025-05-16] MEDS ORDERED: HOME MED LIST COMPLETE! XX SCH (16:15)
[2025-05-16] MEDS ORDERED: CHOLESTYRAMINE 4 GM PWD PKT PO PRN (16:45)
[2025-05-16] MEDS ORDERED: GLUCAGON INJ 1 MG VIAL SC PRN (16:45)
[2025-05-16] MEDS ORDERED: DEXTROSE 50% 50 ML SYRINGE IV PRN (16:45)
[2025-05-16] MEDS ORDERED: GLUCOSE 4 GM CHEW PO PRN (16:45)
[2025-05-16] MEDS: INSULIN LISPRO (NovoLOG) PER UNIT SC SCH ×2 (17:30→21:00)
[2025-05-16] MEDS: LOPERAMIDE 2 MG CAPLET PO PRN (18:48)
[2025-05-16] MEDS: busPIRone 5 MG TAB PO SCH (20:27)
[2025-05-16] MEDS: traMADol 50 MG TAB PO SCH (20:28)
[2025-05-16] MEDS: PREGABALIN 75 MG CAP PO SCH (20:28)
[2025-05-16] MEDS: MAGNESIUM OXIDE 400 MG TAB PO SCH (20:29)
[2025-05-16] MEDS: ZONISAMIDE 50MG CAP PO SCH (21:16)
[2025-05-17] MEDS: ACETAMINOPHEN 650 MG ER TAB PO PRN (01:24)
[2025-05-17] MEDS: RAMELTEON 8 MG TAB PO PRN (03:08)
[2025-05-17] MEDS: HEPARIN SOD 5000 UNITS/ML 1 ML VIAL/SYRINGE SQ SCH (06:47)
[2025-05-17] MEDS: ASPIRIN 81 MG ENTERIC TABLET PO SCH (08:43)
[2025-05-17] MEDS: busPIRone 5 MG TAB PO SCH (08:43)
[2025-05-17] MEDS: traMADol 50 MG TAB PO SCH (08:44)
[2025-05-17] MEDS: ATORVASTATIN 20 MG TAB PO SCH (08:44)
[2025-05-17] MEDS: CLOPIDOGREL 75 MG TAB PO SCH (08:45)
[2025-05-17] MEDS: FUROSEMIDE 40 MG TAB PO SCH (08:45)
[2025-05-17] MEDS: LOSARTAN 25 MG TAB PO SCH (08:45)
[2025-05-17] MEDS: ZONISAMIDE 50MG CAP PO SCH (10:20)
[2025-05-17] MEDS: CEFPODOXIME PROXETIL 200 MG TABLET PO SCH (10:20)
[2025-05-17 10:22] VITALS: BP 151/85
[2025-05-17] MEDS: BISOPROLOL FUM 2.5 MG PER 1/2 TAB PO SCH (10:22)
[2025-05-17 12:25] VITALS: BP 112/68; TEMP 97.3; O2SAT 96
[2025-05-17] MEDS ORDERED: CEFP200T PO (13:59)
== END 2025-05-17 14:20 | disposition other institution (70) ==
LOC: M ED 10:07 → EDBD 10:07 → M ED 05-17 14:20
DX: N39.0 Urinary tract infection, site not specified (principal); R19.7 Diarrhea, unspecified; K21.9 Gastro-esophageal reflux disease without esophagitis; I10 Essential (primary) hypertension; E78.5 Hyperlipidemia, unspecified; Z86.73 Personal history of transient ischemic attack (TIA), and cerebral infarction without residual deficits; K58.9 Irritable bowel syndrome, unspecified; F41.9 Anxiety disorder, unspecified; F32.A Depression, unspecified; Z79.82 Long term (current) use of aspirin; Z79.4 Long term (current) use of insulin; Z79.899 Other long term (current) drug therapy; Z88.0 Allergy status to penicillin; Z88.1 Allergy status to other antibiotic agents; Z88.2 Allergy status to sulfonamides; Z88.8 Allergy status to other drugs, medicaments and biological substances
CPT/HCPCS: 74177; 80048; 80076; 81001; 83690; 83735; 85025; 87088; 87186; 87507; 96372; 96374; 96375; 97161; 97165; 97530; 97535; 99285; J0134; J0696; J1815; Q9967